=== PATIENT | female | born 1960 | race Caucasian/White ===

== ENCOUNTER → 2017-06-26 | Outpatient (CLI) | payer OTHER ==
[2017-06-26 07:19] LABS: ALT 30 U/L (9-52); AST 19 U/L (14-36); Alkaline Phosphatase 86 U/L (38-126); Anion Gap 10 mmol/L; Blood Urea Nitrogen 14 mg/dL (7-17); Calcium 9.3 mg/dL (8.4-10.2); Carbon Dioxide 26 mmol/L (22-30); Chloride 103 mmol/L (98-107); Cholesterol 211 mg/dL (<200); Glucose 155 mg/dL (74-99); HDL Cholesterol 44 mg/dL (40-60); Non-African American GFR(MDRD) >60 (>60 ml/min/1.73 sqM); Potassium 5.3 mmol/L (3.5-5.1); Sodium 139 mmol/L (137-145); Total Bilirubin 0.5 mg/dL (0.2-1.3); Total Protein 7.1 g/dL (6.3-8.2)
[2017-06-26 08:37] LABS: CH 31.7; HCT 50.1 % (34.0-46.0); HDW 2.42; HGB 16.5 gm/dL (11.4-16.0); MCH 31.8 pg (25.0-35.0); MCHC 32.9 g/dL (31.0-37.0); MCV 96.7 fL (80.0-100.0); Mean Platelet Volume 9.6; RBC 5.18 m/uL (3.80-5.40); RDW 14.2 % (11.5-15.5); WBC 7.4 k/uL (3.8-10.6)
[2017-06-26 13:01] LABS: Hemoglobin A1C 7.3 % (4.2-6.1)
--- NOTE | 2017-07-01 10:08 | MM ---
Reason for exam: screening (asymptomatic). Last mammogram was performed 13 years and 9 months ago. History: Patient is postmenopausal. Family history of breast cancer. Took estrogen for 16 years. Physical Findings: A clinical breast exam by your physician is recommended on an annual basis and results should be correlated with mammographic findings. MG Screening Mammo w CAD Bilateral CC, MLO, and XCCL view(s) were taken. No prior studies available for comparison. There are scattered fibroglandular densities. There is no discrete abnormality. No significant changes when compared with prior studies. ASSESSMENT: Negative, BI-RAD 1 RECOMMENDATION: Routine screening mammogram of both breasts in 1 year.
== END | disposition home or self-care (01) ==
LOC: RADMAMWWP 06:37
PROVIDERS: ATTEND Family Medicine
DX: Z12.31 Encounter for screening mammogram for malignant neoplasm of breast (principal); E11.9 Type 2 diabetes mellitus without complications; I10 Essential (primary) hypertension; E87.8 Other disorders of electrolyte and fluid balance, not elsewhere classified; D64.9 Anemia, unspecified
CPT/HCPCS: 80061; 80053; 84443; 83036; 85027; G0202

== ENCOUNTER 2022-10-11 12:07 | Inpatient (IN) | payer MEDICARE, OTHER ==
[2022-10-11] MEDS ORDERED: IPRATROPIUM-ALBUTEROL 3 ML NEB INHALATION STA (12:46)
[2022-10-11 13:18] LABS: Basophils # (A) 0.1 k/uL (0-0.2); Basophils % (A) 1 %; Eosinophils # (A) 0.1 k/uL (0-0.7); Eosinophils % (A) 1 %; HCT 47.7 % (34.0-46.0); HGB 16.2 gm/dL (11.4-16.0); Lymphocytes # (A) 2.1 k/uL (1.0-4.8); Lymphocytes % (A) 23 %; MCH 30.8 pg (25.0-35.0); MCHC 34.1 g/dL (31.0-37.0); MCV 90.3 fL (80.0-100.0); Mean Platelet Volume 10.3; Monocytes # (A) 0.8 k/uL (0-1.0); Monocytes % (A) 8 %; Neutrophils % (A) 65 %; Platelet Count 128 k/uL (150-450); RBC 5.28 m/uL (3.80-5.40); RDW 13.3 % (11.5-15.5); WBC 9.2 k/uL (3.8-10.6)
[2022-10-11 13:35] LABS: Partial Thromboplastin Time 23.1 sec (22.0-30.0); Prothrombin Time 10.5 sec (9.0-12.0)
[2022-10-11 13:36] LABS: ALT 27 U/L (4-34); AST 37 U/L (14-36); African American GFR (CKD) >90 (>60 ml/min/1.73 sqM); Albumin 4.6 g/dL (3.5-5.0); Alkaline Phosphatase 170 U/L (38-126); Anion Gap 8 mmol/L; Blood Urea Nitrogen 10 mg/dL (7-17); Calcium 9.3 mg/dL (8.4-10.2); Carbon Dioxide 27 mmol/L (22-30); Chloride 101 mmol/L (98-107); Glucose 167 mg/dL (74-99); Magnesium 1.9 mg/dL (1.6-2.3); Non-African American GFR(CKD) >90 (>60 ml/min/1.73 sqM); Potassium 4.1 mmol/L (3.5-5.1); Sodium 136 mmol/L (137-145); Total Bilirubin 0.7 mg/dL (0.2-1.3); Total Protein 7.5 g/dL (6.3-8.2)
--- NOTE | 2022-10-11 13:41 | XR ---
EXAMINATION TYPE: XR chest 2V DATE OF EXAM: 10/11/2022 1:29 PM COMPARISON: Chest radiographs from TECHNIQUE: XR chest 2V Frontal and lateral views of the chest. CLINICAL INDICATION:Female, 61 years old with history of difficulty breathing; FINDINGS: Lungs/Pleura: Right upper lobe airspace opacity along the right mediastinum. No Evidence of pleural e ffusion, or pneumothorax. Pulmonary vascularity: Unremarkable. Heart/mediastinum: Cardiomediastinal silhouette is unremarkable. Musculoskeletal: No acute osseous pathology. IMPRESSION: Right upper lobe airspace opacity correlate for pneumonia. Consider dedicated CT chest to rule out un derlying mass.
--- NOTE | 2022-10-11 14:07 | ED ---
SOB HPI - General Chief Complaint: Shortness of Breath Stated Complaint: Chest pain SOB Time Seen by Provider: 10/11/22 12:28 Source: patient, family, RN notes reviewed Mode of arrival: wheelchair Limitations: no limitations - History of Present Illness Initial Comments: 62-year-old female with history of IVs hypertension and CVA in the past who states she's been fighting a bronchitis-type illness for the past 6 weeks she's been on multiple antibiotics without relief. She does use an albuterol inhaler which sometimes works but lately hasn't been she has a cough with yellow greenish phlegm he complains of lower midsternal sharp chest discomfort mostly with taking deep breaths. She has no history of heart disease she states she is a smoker she states. She's never been diagnosed with asthma COPD or emphysema however. She is here for further evaluation. She also was noted have diffuse wheezing upon initial evaluation in triage. She denies any fevers chills or sweats at this time. MD Complaint: shortness of breath, cough, chest pain - Related Data Home Medications Medication Instructions Recorded Confirmed Albuterol Inhaler [Ventolin Hfa 2 puff INHALATION RT-Q6H PRN 10/11/22 10/11/22 Inhaler] Atorvastatin Calcium 40 mg PO HS 10/11/22 10/11/22 Metoprolol Tartrate [Lopressor] 25 mg PO DAILY 10/11/22 10/11/22 Allergies Allergy/AdvReac Type Severity Reaction Status Date / Time bupropion [From Wellbutrin] Allergy Confusion Verified 10/11/22 13:17 codeine Allergy Nausea & Verified 10/11/22 13:17 Vomiting Sulfa (Sulfonamide Allergy Nausea & Verified 10/11/22 13:17 Antibiotics) Vomiting & Diarrhea Review of Systems ROS Statement: Those systems with pertinent positive or pertinent negative responses have been documented in the HPI. ROS Other: All systems not noted in ROS Statement are negative. Past Medical History Past Medical History: CVA/TIA, Diabetes Mellitus, Hyperlipidemia, Hypertension History of Any Multi-Drug Resistant Organisms: None Reported Past Surgical History: Appendectomy, Section, Cholecystectomy, Hysterectomy Additional Past Surgical History / Comment(s): colon resection Past Psychological History: Depression Smoking Status: Current every day smoker Past Alcohol Use History: None Reported Past Drug Use History: None Reported General Exam - General Exam Comments Initial Comments: This is a well-developed well-nourished awake alert oriented 4 female Limitations: no limitations General appearance: alert, anxious Head exam: Present: atraumatic, normocephalic, normal inspection Eye exam: Present: normal appearance, PERRL, EOMI. Absent: scleral icterus, conjunctival injection, periorbital swelling ENT exam: Present: mucous membranes dry Neck exam: Present: normal inspection, full ROM, other Respiratory exam: Present: wheezes, chest wall tenderness, decreased breath sounds (No stridor JVD or bruits) Cardiovascular Exam: Present: regular rate, normal rhythm, normal heart sounds. Absent: systolic murmur, diastolic murmur, rubs, gallop, clicks GI/Abdominal exam: Present: soft, normal bowel sounds. Absent: distended, tenderness, guarding, rebound, rigid Extremities exam: Present: normal inspection, full ROM, normal capillary refill. Absent: tenderness, pedal edema, joint swelling, calf tenderness Back exam: Present: normal inspection Neurological exam: Present: alert, oriented X3, CN II-XII intact Psychiatric exam: Present: normal affect, normal mood Skin exam: Present: warm, dry, intact, normal color. Absent: rash Course Vital Signs 10/11/22 10/11/22 10/11/22 12:13 13:30 13:36 Temperature 98.3 F Pulse Rate 92 86 88 Respiratory 16 Rate Blood Pressure 127/80 O2 Sat by Pulse 97 Oximetry 10/11/22 14:00 Temperature Pulse Rate Respiratory 20 Rate Blood Pressure O2 Sat by Pulse Oximetry - Reevaluation(s) Reevaluation #1: 10/11/22 14:07 Reevaluation after the nebulizer treatment demonstrate persistent diminished breath sounds of right side wheezes. Pulse oximetry is 97% however. Procedures - [place] Protocol (Time Out) Nurse: Robyn Mcgee - Smoking Cessation Time Spent Discussing Smoking Cessation w/Patient (Minutes): 3 Patient Acknowledges Need for Cessation: Yes Medical Decision Making - Medical Decision Making I did discuss the findings with the patient family as well as with Dr. Lai. Patient will be admitted for inpatient evaluation and treatment of right upper lobe pneumonia elevated d-dimer failed outpatient treatment acute bronchospasm tobacco dependenceWas pt. sent in by a medical professional or institution (, PA, EMAIL PRODUCER, urgent care, hospital, or snf...) When possible be specific @ -No Did you speak to anyone other than the patient for history (EMS, parent, family, police, friend...)? What history was obtained from this source @ -No Did you review nursing and triage notes (agree or disagree)? Why? @ Yes I agree-I reviewed and agree with nursing and triage notes Were old charts reviewed (outside hosp., previous admission, EMS record, old EKG, old radiological studies, urgent care reports/EKG's, snf records)? Report findings @ -No old charts were reviewed Differential Diagnosis (chest pain, altered mental status, abdominal pain women, abdominal pain men, vaginal bleeding, weakness, fever, dyspnea, syncope, headache, dizziness, GI bleed, back pain, seizure, CVA, palpatations, mental he alth)? @ Chest pain, pneumonia, dyspnea which includes undiagnosed COPD exacerbation elevated d-dimer -not applicable EKG interpreted by me (3pts min.). @ Yes by me-As above X-rays interpreted by me (1pt min.). @ Yes by me-None done CT interpreted by me (1pt min.). @ -None done U/S interpreted by me (1pt. min.). @ -None done What testing was considered but not performed or refused? (CT, X-rays, U/S, labs)? Why? @ -None What meds were considered but not given or refused? Why? @ -None Did you discuss the management of the patient with other professionals (professionals i.e. , PA, EMAIL PRODUCER, lab, RT, psych nurse, social sciences instructor, flight surgeon, teacher, chief informatics officer, rehabilitation case coordinator)? Give summary @ With Dr. Lai -No Was smoking cessation discussed for >3mins.? @ Yes-No Was critical care preformed (if so, how long)? @ -No Were there social determinants of health that impacted care today? How? (Homelessness, low income, unemployed, alcoholism, drug addiction, transportation, low edu. Level, literacy, decrease access to med. care, mcc, rehab)? @ -No Was there de-escalation of care discussed even if they declined (Discuss DNR or withdrawal of care, Hospice)? DNR status @ -No What co-morbidities impacted this encounter? (DM, HTN, Smoking, COPD, CAD, Cancer, CVA, ARF, Chemo, Hep., AIDS, mental health diagnosis, sleep apnea, morbid obesity)? @ -None Was patient admitted / discharged? Hospital course, mention meds given and route, prescriptions, significant lab abnormalities, going to OR and other perti nesharif info. @ -hospital course Undiagnosed new problem with uncertain prognosis? @ -No Drug Therapy requiring intensive monitoring for toxicity (Heparin, Nitro, Insulin, Cardizem)? @ -No Were any procedures done? @ -No Diagnosis/symptom? @ Right upper lobe pneumonia, acute bronchospasm, tobacco dependence, chest pain, elevated [id number] Acute, or Chronic, or Acute on Chronic? @ Acute -default Uncomplicated (without systemic symptoms) or Complicated (systemic symptoms)? @ -default Side effects of treatment? @ -No Exacerbation, Progression, or Severe Exacerbation? @ Failed outpatient treatment- Poses a threat to life or bodily function? How? (Chest pain, [place], [place], pneumonia, PE, COPD, DKA, ARF, appy, cholecystitis, CVA, Diverticulitis, Homicidal, Suicidal, threat to staff... and all critical care pts) @ If left untreated- - Lab Data Result diagrams: 10/11/22 13:04 10/11/22 13:04 Lab Results 10/11/22 10/11/22 10/11/22 Range/Units 13:04 13:04 13:04 WBC 9.2 (3.8-10.6) k/uL RBC 5.28 (3.80-5.40) m/uL Hgb 16.2 H (11.4-16.0) gm/dL Hct 47.7 H (34.0-46.0) % MCV 90.3 (80.0-100.0) fL MCH 30.8 (25.0-35.0) pg MCHC 34.1 (31.0-37.0) g/dL RDW 13.3 (11.5-15.5) % Plt Count 128 L (150-450) k/uL MPV 10.3 Neutrophils % 65 % Lymphocytes % 23 % Monocytes % 8 % Eosinophils % 1 % Basophils % 1 % Neutrophils # 6.0 (1.3-7.7) k/uL Lymphocytes # 2.1 (1.0-4.8) k/uL Monocytes # 0.8 (0-1.0) k/uL Eosinophils # 0.1 (0-0.7) k/uL Basophils # 0.1 (0-0.2) k/uL PT 10.5 (9.0-12.0) sec INR 1.0 (<1.2) APTT 23.1 (22.0-30.0) sec D-Dimer 1.56 H (<0.60) mg/L FEU Sodium 136 L (137-145) mmol/L Potassium 4.1 (3.5-5.1) mmol/L Chloride 101 (98-107) mmol/L Carbon Dioxide 27 (22-30) mmol/L Anion Gap 8 mmol/L BUN 10 (7-17) mg/dL Creatinine 0.43 L (0.52-1.04) mg/dL Est GFR (CKD-EPI)AfAm >90 (>60 ml/min/1.73 sqM) Est GFR (CKD-EPI)NonAf >90 (>60 ml/min/1.73 sqM) Glucose 167 H (74-99) mg/dL Plasma Lactic Acid Bala (0.7-2.0) mmol/L Calcium 9.3 (8.4-10.2) mg/dL Magnesium 1.9 (1.6-2.3) mg/dL Total Bilirubin 0.7 (0.2-1.3) mg/dL AST 37 H (14-36) U/L ALT 27 (4-34) U/L Alkaline Phosphatase 170 H (38-126) U/L Troponin I (0.000-0.034) ng/mL Total Protein 7.5 (6.3-8.2) g/dL Albumin 4.6 (3.5-5.0) g/dL Influenza Type A (PCR) (Not Detectd) Influenza Type B (PCR) (Not Detectd) RSV (PCR) (Not Detectd) SARS-CoV-2 (PCR) (Not Detectd) 10/11/22 10/11/22 10/11/22 Range/Units 13:04 13:04 13:04 WBC (3.8-10.6) k/uL RBC (3.80-5.40) m/uL Hgb (11.4-16.0) gm/dL Hct (34.0-46.0) % MCV (80.0-100.0) fL MCH (25.0-35.0) pg MCHC (31.0-37.0) g/dL RDW (11.5-15.5) % Plt Count (150-450) k/uL MPV Neutrophils % % Lymphocytes % % Monocytes % % Eosinophils % % Basophils % % Neutrophils # (1.3-7.7) k/uL Lymphocytes # (1.0-4.8) k/uL Monocytes # (0-1.0) k/uL Eosinophils # (0-0.7) k/uL Basophils # (0-0.2) k/uL PT (9.0-12.0) sec INR (<1.2) APTT (22.0-30.0) sec D-Dimer (<0.60) mg/L FEU Sodium (137-145) mmol/L Potassium (3.5-5.1) mmol/L Chloride (98-107) mmol/L Carbon Dioxide (22-30) mmol/L Anion Gap mmol/L BUN (7-17) mg/dL Creatinine (0.52-1.04) mg/dL Est GFR (CKD-EPI)AfAm (>60 ml/min/1.73 sqM) Est GFR (CKD-EPI)NonAf (>60 ml/min/1.73 sqM) Glucose (74-99) mg/dL Plasma Lactic Acid Bala 1.1 (0.7-2.0) mmol/L Calcium (8.4-10.2) mg/dL Magnesium (1.6-2.3) mg/dL Total Bilirubin (0.2-1.3) mg/dL AST (14-36) U/L ALT (4-34) U/L Alkaline Phosphatase (38-126) U/L Troponin I <0.012 (0.000-0.034) ng/mL Total Protein (6.3-8.2) g/dL Albumin (3.5-5.0) g/dL Influenza Type A (PCR) Not Detected (Not Detectd) Influenza Type B (PCR) Not Detected (Not Detectd) RSV (PCR) Not Detected (Not Detectd) SARS-CoV-2 (PCR) Not Detected (Not Detectd) - EKG Data -: EKG Interpreted by Ar EKG Comments: EKG interpreted by me shows a sinus rhythm of 98 VA interval 138 QRS duration 94 QT since QTC 338/394 left atrial enlargement nonspecific T-wave configuration - Radiology Data Interpreted by me: Imaging interpreted by me shows evidence of a right upper lobe infiltrate Disposition Clinical Impression: Right upper lobe pneumonia, Failure of outpatient treatment, Acute bronchospasm, Elevated d-dimer, Atypical chest pain, Tobacco dependence Disposition: ADMITTED IP TO THIS [facility] Condition: Fair Referrals: None,Stated [Primary Care Provider] - 1-2 days Decision Date: 10/11/22 Decision Time: 14:00
[2022-10-11] MEDS ORDERED: PIPERACILLIN-TAZOBACTAM 3.375 GM in SODIUM CHLORIDE 0.9% 100 ML IVPB STA (14:14)
[2022-10-11] MEDS ORDERED: methylPREDNISolone SOD SUCCI 125 MG/2 ML VIAL IV STA (14:24)
[2022-10-11] MEDS ORDERED: MAGNESIUM SULFATE-D5W PMX 1 GM in DEXTROSE/WATER 1 100ML.BAG IVPB ONE (14:24)
[2022-10-11] MEDS ORDERED: LEVOFLOXACIN 500MG-D5W PMX 500 MG in DEXTROSE/WATER 1 100ML.BAG IVPB STA (14:24)
[2022-10-11] MEDS ORDERED: PNEUMONIA PROTOCOL UTILIZED 1 EACH MISC PO PRN (14:25)
[2022-10-11] MEDS ORDERED: IPRATROPIUM-ALBUTEROL 3 ML NEB INHALATION PRN (14:25)
[2022-10-11] MEDS ORDERED: NICOTINE 21MG/24HR PATCH TRANSDERM STA (14:28)
[2022-10-11] MEDS ORDERED: SODIUM CHLORIDE 0.9% 1,000 ML IV SCH (14:30)
--- NOTE | 2022-10-11 14:49 | CT ---
EXAMINATION TYPE: CT angio chest CT DLP: 388.8 mGycm, Automated exposure control for dose reduction was used. DATE OF EXAM: 10/11/2022 2:29 PM COMPARISON: None CLINICAL INDICATION:Female, 61 years old with history of PE suspected; chest pain, sob, hx of hyperte nsion TECHNIQUE/CONTRAST: CTA scan of the thorax is performed with IV Contrast, patient injected with 100 ml mL of Isovue 370, pulmonary embolism protocol. MIP images are created and reviewed these are created on a separate wor kstation.. FINDINGS: Pulmonary Artery: There is no evidence for a filling defect within the pulmonary vasculature to sugge st acute pulmonary embolism. The pulmonary artery is of normal size. Lungs/Pleura: Right upper lobe consolidation likely postobstructive consolidation with superimposed i nfection not entirely excluded. Consolidation secondary to narrowing of the airway from right pulmona ry hilum mass. Airway: Right perihilar mass which narrows the right bronchus at least 75% in the right upper lobe lo bar bronchus 100% series 411 image 53 results in obstructive consolidation of the right upper lobe. Heart: Heart is within normal limits for size. Vasculature: No evidence of aortic aneurysm. Mediastinum: Lymphadenopathy throughout the mediastinum including right superior paratracheal measuri ng up to 12 mm in short axis, right low paratracheal measuring up to 20 mm in short axis. Subcarinal lymphadenopathy measuring up to 3.8 x 2.1 cm. Right hilum lymph nodes Musculoskeletal: There is a subacute fracture of left rib 7 posteriorly laterally. Soft Tissues: Unremarkable. Lower neck: No significant findings. Upper Abdomen: Right adrenal gland is partially not definitively visualized there is ae mass which is cystic attenuation measuring 6.6 x 5.8 x 6.9 cm it appears separate from the right kidney. There is multiple hypodensities within the liver the largest in the right lobe measuring up to 3.0 cm and in t he left hepatic lobe measuring 1.4 cm. The gallbladder surgically absent. There is a splenule. IMPRESSION: 1. Right pulmonary hilum/right upper lobe mass with mediastinal lymphadenopathy concerning for prima ry malignancy with metastatic disease. Mass narrows the airways on the right which correlates with co nsolidation changes seen on radiograph. Superimposed infection not entirely excluded. Endoscopy with tissue simply recommended. 2. Right adrenal fossa cystic lesion which is indeterminate and felt to be separate from the right k idney. Could be secondary to #1. 3. Numerous liver hypodensities concerning for metastatic disease. Could be secondary to #1. Complet e evaluation of the abdomen and pelvis is recommended given multiple liver probable metastatic foci. 4. No evidence of pulmonary embolism. 5. Subacute left posterior rib 7 fracture
[2022-10-11] MEDS ORDERED: DEXTROSE 50% SYRINGE 50 ML IVP PRN ×2 (15:46)
[2022-10-11] MEDS ORDERED: NALOXONE 0.4 MG/ML 1 ML VIAL IV PRN (15:48)
[2022-10-11] MEDS ORDERED: ACETAMINOPHEN TAB 325 MG TAB PO PRN (15:48)
--- NOTE | 2022-10-11 15:48 | P.HPIM ---
History of Present Illness H&P Date: 10/11/22 Chief Complaint: SOB and cough Patient is a 61-year-old female with history of hypertension, dyslipidemia, and nicotine dependence presenting with shortness of breath and cough. She claims that her symptoms started about 6 weeks ago. She occasionally gets acute bronchitis every year. This time around, she had 3 rounds of antibiotics with no resolution. She did not have any imaging done as an outpatient. She has not had any CTs done in the last few years. Due to worsening cough, shortness of breath she decided to come to the hospital. She denies any significant fevers, chills, nausea, vomiting, abdominal pain, palpitations, diarrhea, constipation, travel history, or sick contacts. She occasionally gets sternal chest pain from coughing too much. She denies any weight loss. In the ED, vital signs have been within normal limits. Patient saturating well on room air. Labs showed normal white blood cell count, elevated hemoglobin, mild thrombocytopenia, mild hyponatremia 136, mild transaminitis, elevated d- dimer at 1.56. Influenza a and B, RSV, and COVID-19 was negative. Chest x-ray reported as right upper lobe opacity concerning for pneumonia. EKG showed normal sinus rhythm with nonspecific ST-T wave abnormalities reviewed by me. CTA showed right pulmonary hilum/right upper lobe mass with mediastinal lymphadenopathy concerning for primary malignancy with metastatic disease. Right adrenal possible cystic lesion, numerous liver hypodensities also concerning for metastatic disease. Subacute left posterior rib fracture. Patient seen and examined at bedside. Pertinent positives and negatives as discussed in HPI, a complete review of systems was performed and all other systems are negative. Vital signs reviewed General: nontoxic, no distress, appears at stated age Derm: warm, dry Head: atraumatic, normocephalic, symmetric Eyes: EOMI, no lid lag, anicteric sclera, pupils equal round reactive to light ENT: Nose and ears atraumatic Neck: No thyromegaly, supple Mouth: no lip lesion, mucus membranes moist Cardiovascular: S1S2 reg, no murmur, no edema Lungs: Right upper lobe reduced breath sounds, no wheeze, no accessory muscle use Abdominal: soft, nontender to palpation, no guarding, no appreciable organomegaly Ext: no gross muscle atrophy, muscle strength muscle strength 5 out of 5 in all 4 extremities, no contractures Neuro: CN II-XII grossly intact Psych: Alert, oriented, appropriate affect Assessment/Plan: Primary lung malignancy with metastatic disease Possible postobstructive pneumonia Subacute left posterior fracture right adrenal mass Liver metastasis Acute on chronic dyspnea Elevated d-dimer Mild transaminitis Mild thrombocytopenia -procalcitonin pending -Sputum cultures, blood cultures -hold off antibiotics for now -symptoms likely all secondary to malignancy -Pulmonology, and oncology consulted Nicotine dependence -Counseled regarding smoking cessation Type 2 diabetes mellitus - hold home meds - SSI History of hypertension History of dyslipidemia -Continue home medications The patient is admitted with an anticipated greater than 2 midnight stay for evaluation of pneumonia. Surrogate decision-maker: spouse CODE STATUS: Full code DVT prophylaxis: Lovenox Anticipated discharge date: 1-[address]: Home A total of 59 minutes was spent on the care of this complex patient more than 50% of the time was spent in counseling and care coordination. Past Medical History Past Medical History: CVA/TIA, Diabetes Mellitus, Hyperlipidemia, Hypertension History of Any Multi-Drug Resistant Organisms: None Reported Past Surgical History: Appendectomy, Section, Cholecystectomy, Hysterectomy Additional Past Surgical History / Comment(s): colon resection Past Psychological History: Depression Smoking Status: Current every day smoker Past Alcohol Use History: None Reported Past Drug Use History: None Reported Medications and Allergies Home Medications Medication Instructions Recorded Confirmed Type Albuterol Inhaler [Ventolin Hfa 2 puff INHALATION RT-Q6H PRN 10/11/22 10/11/22 History Inhaler] Atorvastatin Calcium 40 mg PO HS 10/11/22 10/11/22 History Empagliflozin [Jardiance] 10 mg PO DAILY 10/11/22 10/11/22 History Metoprolol Tartrate [Lopressor] 25 mg PO DAILY 10/11/22 10/11/22 History Semaglutide [Ozempic] 0.5 mg SQ MO 10/11/22 10/11/22 History Sertraline [Zoloft] 100 mg PO BID 10/11/22 10/11/22 History Allergies Allergy/AdvReac Type Severity Reaction Status Date / Time bupropion [From Wellbutrin] Allergy Confusion Verified 10/11/22 13:17 codeine Allergy Nausea & Verified 10/11/22 13:17 Vomiting Sulfa (Sulfonamide Allergy Nausea & Verified 10/11/22 13:17 Antibiotics) Vomiting & Diarrhea Physical Exam Vitals: Vital Signs Temp Pulse Resp BP Pulse Ox 10/11/22 14:30 90 16 134/90 94 L 10/11/22 14:00 20 10/11/22 13:36 88 10/11/22 13:30 86 10/11/22 12:13 98.3 F 92 16 127/80 97 Intake and Output 10/11/22 10/11/22 10/11/22 06:59 14:59 22:59 Other: Weight 83.915 kg Results CBC & Chem 7: 10/11/22 13:04 10/11/22 13:04 Labs: Abnormal Lab Results - Last 24 Hours (Table) 10/11/22 10/11/22 10/11/22 Range/Units 13:04 13:04 13:04 Hgb 16.2 H (11.4-16.0) gm/dL Hct 47.7 H (34.0-46.0) % Plt Count 128 L (150-450) k/uL D-Dimer 1.56 H (<0.60) mg/L FEU Sodium 136 L (137-145) mmol/L Creatinine 0.43 L (0.52-1.04) mg/dL Glucose 167 H (74-99) mg/dL AST 37 H (14-36) U/L Alkaline Phosphatase 170 H (38-126) U/L
[2022-10-11 16:39] LABS: Glucose,Whole Blood 226 mg/dL (70-110)
[2022-10-11] MEDS: INSULIN ASPART (NovoLOG) 100 UNIT/ML VIAL SQ SCH ×2 (17:40→20:52)
[2022-10-11] MEDS ORDERED: FLUCONAZOLE 150 MG TAB PO STA (18:02)
[2022-10-11] MEDS: ALPRAZolam 0.5 MG TAB PO PRN (18:34)
[2022-10-11 19:50] LABS: Glucose,Whole Blood 251 mg/dL (70-110)
[2022-10-11] MEDS: SERTRALINE 100 MG TAB PO SCH (20:52)
[2022-10-11] MEDS: ATORVASTATIN 40 MG TAB PO SCH (20:52)
[2022-10-12] MEDS ORDERED: PIPERACILLIN-TAZOBACTAM 3.375 GM in SODIUM CHLORIDE 0.9% 100 ML IVPB SCH ×2
[2022-10-12] MEDS: oxyCODONE-APAP 5-325MG 1 EACH TAB PO PRN ×2 (04:16→20:58)
[2022-10-12 06:22] LABS: Glucose,Whole Blood 194 mg/dL (70-110)
[2022-10-12] MEDS: INSULIN ASPART (NovoLOG) 100 UNIT/ML VIAL SQ SCH ×4 (06:27→20:59)
[2022-10-12 08:14] LABS: Basophils % (A) 0 %; Eosinophils # (A) 0.1 k/uL (0-0.7); Eosinophils % (A) 0 %; HGB 15.6 gm/dL (11.4-16.0); Lymphocytes # (A) 1.1 k/uL (1.0-4.8); Lymphocytes % (A) 8 %; MCH 30.3 pg (25.0-35.0); MCHC 33.2 g/dL (31.0-37.0); MCV 91.5 fL (80.0-100.0); Mean Platelet Volume 10.6; Monocytes # (A) 0.8 k/uL (0-1.0); Monocytes % (A) 5 %; Neutrophils # (A) 12.6 k/uL (1.3-7.7); Neutrophils % (A) 86 %; Platelet Count 137 k/uL (150-450); RBC 5.14 m/uL (3.80-5.40); RDW 13.2 % (11.5-15.5); WBC 14.8 k/uL (3.8-10.6)
--- NOTE | 2022-10-12 08:24 | XR ---
EXAMINATION TYPE: XR chest 2V DATE OF EXAM: 10/12/2022 COMPARISON: 10/11/2022 HISTORY: 61-year-old female pneumonia follow-up TECHNIQUE: PA and lateral views FINDINGS: Heart normal size. Aorta and pulmonary vasculature within normal limits. Focal opacity periphery of t he left midlung is unchanged, likely corresponding to a tiny calcified granuloma on CT. Volume loss a nd airspace disease right upper lobe extending to the right hilum remains unchanged as well. Hyperinf lation compatible with underlying COPD. No pleural effusion. IMPRESSION: Similar developing Reverse S sign of [place] with postobstructive pneumonitis. Background COPD.
[2022-10-12] MEDS ORDERED: ENOXAPARIN 40 MG/0.4 ML SYRINGE SQ SCH (09:00)
[2022-10-12] MEDS: SERTRALINE 100 MG TAB PO SCH ×2 (09:50→20:59)
[2022-10-12] MEDS: METOPROLOL TARTRATE 25 MG TAB PO SCH (09:50)
[2022-10-12] MEDS ORDERED: SUCCINYLCHOLINE CHLORIDE 200 MG/10 ML VIAL IV ONE (10:16)
[2022-10-12] MEDS ORDERED: LIDOCAINE 2% INJ 20 MG/ML (2 ML VIAL) ONE (10:16)
[2022-10-12] MEDS ORDERED: fentaNYL (PF) 50 MCG/ML 2 ML AMP ONE (10:16)
[2022-10-12] MEDS ORDERED: PROPOFOL 10 MG/ML 20 ML VIAL IV ONE (10:16)
[2022-10-12] MEDS ORDERED: DEXAMETHASONE SOD PHOS (MDV) 100 MG/10 ML VIAL ONE (10:16)
[2022-10-12] MEDS ORDERED: ONDANSETRON 4 MG/2 ML VIAL ONE (10:16)
[2022-10-12 11:29] LABS: Glucose,Whole Blood 240 mg/dL (70-110)
[2022-10-12] MEDS ORDERED: IPRATROPIUM-ALBUTEROL 3 ML NEB INHALATION PRN (11:43)
[2022-10-12] MEDS: methylPREDNISolone SOD SUCCI 125 MG/2 ML VIAL IV SCH ×3 (12:08→23:47)
--- NOTE | 2022-10-12 12:09 | P.PN ---
Subjective Progress Note Date: 10/12/22 Hospital Course: 61-year-old female with history of hypertension, dyslipidemia, and nicotine dependence presenting with shortness of breath and cough. In the ED, vital signs have been within normal limits. Patient saturating well on room air. Labs showed normal white blood cell count, elevated hemoglobin, mild thrombocytopenia, mild hyponatremia 136, mild transaminitis, elevated d-dimer at 1.56. Influenza a and B, RSV, and COVID-19 was negative. Chest x-ray reported as right upper lobe opacity concerning for pneumonia. EKG showed normal sinus rhythm with nonspecific ST-T wave abnormalities reviewed by me. CTA showed right pulmonary hilum/right upper lobe mass with mediastinal lymphadenopathy concerning for primary malignancy with metastatic disease. Right adrenal possib le cystic lesion, numerous liver hypodensities also concerning for metastatic disease. Subacute left posterior rib fracture. Patient admitted for further malignancy workup. Pulmonology and oncology consulted. Subjective: Patient seen and examined at bedside. No acute events overnight. Patient claims that her breathing and cough has slightly improved. Her chest pain only comes on with extensive coughing. She denies any abdominal pain, nausea, vomiting, diarrhea, constipation, or urinary complaints. Pertinent positives and negatives as discussed above, a complete review of systems was performed and all other systems are negative. Vitals Signs Reviewed. General: nontoxic, no distress, appears at stated age Derm: warm, dry Head: atraumatic, normocephalic, symmetric Eyes: EOMI, no lid lag, anicteric sclera Mouth: no lip lesion, mucus membranes moist Cardiovascular: S1S2 reg, no murmur Lungs: Reduced breath sounds in right upper lobe, supplemental oxygen Abdominal: soft, nontender to palpation, no guarding, no appreciable organomegaly Ext: no gross muscle atrophy, no edema, no contractures Neuro: CN II-XI grossly intact, no focal neuro deficits Psych: Alert, oriented, appropriate affect Assessment and Plan: Primary lung malignancy with metastatic disease Possible postobstructive pneumonia Possible COPD exacerbation Subacute left posterior fracture right adrenal mass Liver metastasis Acute on chronic dyspnea Elevated d-dimer Mild transaminitis Mild thrombocytopenia -procalcitonin elevated -Sputum cultures, blood cultures -Antibiotics, steroids, bronchodilators -Pulmonology, and oncology consulted Nicotine dependence -Counseled regarding smoking cessation Type 2 diabetes mellitus - hold home meds - SSI History of hypertension History of dyslipidemia -Continue home medications DVT ppx: Lovenox Code status: DNR/DNI Anticipated discharge place: Home Anticipated discharge time: pending clinical course Objective - Vital Signs Vital signs: Vital Signs Temp 98.6 F 10/12/22 08:00 Pulse 83 10/12/22 08:00 Resp 18 10/12/22 08:00 BP 129/73 10/12/22 08:00 Pulse Ox 95 10/12/22 08:25 FiO2 21 10/11/22 19:42 Intake & Output 10/11/22 10/12/22 10/12/22 18:59 06:59 18:59 Intake Total 118 Output Total 200 Balance -200 118 Weight 83.915 kg Intake: Oral 118 Output: Urine 200 Other: Voiding Method Toilet # Voids 2 - Labs CBC & Chem 7: 10/12/22 08:02 10/11/22 13:04 Labs: Abnormal Lab Results - Last 24 Hours (Table) 10/11/22 10/11/22 10/11/22 Range/Units 13:04 13:04 13:04 WBC (3.8-10.6) k/uL Hgb 16.2 H (11.4-16.0) gm/dL Hct 47.7 H (34.0-46.0) % Plt Count 128 L (150-450) k/uL Neutrophils # (1.3-7.7) k/uL D-Dimer 1.56 H (<0.60) mg/L FEU Sodium 136 L (137-145) mmol/L Creatinine 0.43 L (0.52-1.04) mg/dL Glucose 167 H (74-99) mg/dL POC Glucose (mg/dL) (70-110) mg/dL Hemoglobin A1c (0.0-6.0) % AST 37 H (14-36) U/L Alkaline Phosphatase 170 H (38-126) U/L Procalcitonin (0.02-0.09) ng/mL 10/11/22 10/11/22 10/11/22 Range/Units 13:04 13:04 16:37 WBC (3.8-10.6) k/uL Hgb (11.4-16.0) gm/dL Hct (34.0-46.0) % Plt Count (150-450) k/uL Neutrophils # (1.3-7.7) k/uL D-Dimer (<0.60) mg/L FEU Sodium (137-145) mmol/L Creatinine (0.52-1.04) mg/dL Glucose (74-99) mg/dL POC Glucose (mg/dL) 226 H (70-110) mg/dL Hemoglobin A1c 8.2 H (0.0-6.0) % AST (14-36) U/L Alkaline Phosphatase (38-126) U/L Procalcitonin 0.17 H (0.02-0.09) ng/mL 10/11/22 10/12/22 10/12/22 Range/Units 19:49 06:21 08:02 WBC 14.8 H (3.8-10.6) k/uL Hgb (11.4-16.0) gm/dL Hct 47.0 H (34.0-46.0) % Plt Count 137 L (150-450) k/uL Neutrophils # 12.6 H (1.3-7.7) k/uL D-Dimer (<0.60) mg/L FEU Sodium (137-145) mmol/L Creatinine (0.52-1.04) mg/dL Glucose (74-99) mg/dL POC Glucose (mg/dL) 251 H 194 H (70-110) mg/dL Hemoglobin A1c (0.0-6.0) % AST (14-36) U/L Alkaline Phosphatase (38-126) U/L Procalcitonin (0.02-0.09) ng/mL 10/12/22 Range/Units 11:28 WBC (3.8-10.6) k/uL Hgb (11.4-16.0) gm/dL Hct (34.0-46.0) % Plt Count (150-450) k/uL Neutrophils # (1.3-7.7) k/uL D-Dimer (<0.60) mg/L FEU Sodium (137-145) mmol/L Creatinine (0.52-1.04) mg/dL Glucose (74-99) mg/dL POC Glucose (mg/dL) 240 H (70-110) mg/dL Hemoglobin A1c (0.0-6.0) % AST (14-36) U/L Alkaline Phosphatase (38-126) U/L Procalcitonin (0.02-0.09) ng/mL
--- NOTE | 2022-10-12 13:56 | P.CNPUL ---
History of Present Illness Consult date: 10/12/22 Requesting physician: Ashwin Lai Reason for consult: dyspnea, cough, chest pain, COPD, hypoxemia, pneumonia, lung mass, abnormal CXR/CT Chief complaint: Shortness of breath, chest pain. History of present illness: Pulmonary consult dated 10/12/2022. 61-year-old female who was seen in the emergency department on October 11. She came with complaints of shortness of breath, and chest pain. She apparently has a history of hypertension, and COPD from years of tobacco use. She's been smo jay for more than 40 years. The patient has been on multiple rounds of antibiotics for "bronchitis". The patient does not currently see a lung doctor. She does not have a family doctor in this area she just recently moved back to this area. Anyway, in the emergency department, she was evaluated with a chest x-ray and a computed tomography scan which suggested infiltrate or mass in the right upper lobe. The computed tomography scan suggest a right perihilar mass, with obstruction of the right mainstem bronchus, and a postobstructive pneumonia. In addition, the patient has lesions in the liver suggestive of metastatic disease. We suspect that she has bronchogenic cancer, with metastasi s. We were sirena enough to secure a spot in the operating room tomorrow for bronchoscopy, and biopsy. Lab data includes a white count of 14.8, hemoglobin 15.6, hematocrit 47, and platelet count of 237,000. D-dimer was 1.56. Sodium 136, potassium 4.1, chloride 101, CO2 27, BUN 10, and creatinine 0.43. The AST was 37. Pro-calcitonin level was 0.17. Testing for influenza, RSV, and coronavirus were negative. Chest x-ray showed right upper lobe airspace disease. CTA was negative for pulmonary embolism. There is a right pulmonary mass, with mediastinal adenopathy, concerning for primary malignancy with metastatic disease to the liver. There are numerous liver hypodensities concerning for metastatic disease. Review of Systems REVIEW OF SYSTEMS: CONSTITUTIONAL: [Negative.] NEUROLOGIC: [ Negative.] HEENT: [ Negative.] CARDIAC: Chest pressure/pain. PULMONARY: Shortness of breath, cough, chest congestion, tightness, with some phlegm production. GI: [Negative.] : [Negative.] RHEUMATOLOGIC: [ Negative.] IMMUNOLOGIC: [ Negative.] ENDOCRINE: [Negative. ] DERMATOLOGIC: [Negative.] Past Medical History Past Medical History: CVA/TIA, Diabetes Mellitus, Hyperlipidemia, Hypertension History of Any Multi-Drug Resistant Organisms: None Reported Past Surgical History: Appendectomy, Section, Cholecystectomy, Hysterectomy Additional Past Surgical History / Comment(s): colon resection Past Anesthesia/Blood Transfusion Reactions: No Reported Reaction Past Psychological History: Depression Smoking Status: Current every day smoker Past Alcohol Use History: None Reported Past Drug Use History: None Reported Medications and Allergies Home Medications Medication Instructions Recorded Confirmed Type Albuterol Inhaler [Ventolin Hfa 2 puff INHALATION RT-Q6H PRN 10/11/22 10/11/22 History Inhaler] Atorvastatin Calcium 40 mg PO HS 10/11/22 10/11/22 History Empagliflozin [Jardiance] 10 mg PO DAILY 10/11/22 10/11/22 History Metoprolol Tartrate [Lopressor] 25 mg PO DAILY 10/11/22 10/11/22 History Semaglutide [Ozempic] 0.5 mg SQ MO 10/11/22 10/11/22 History Sertraline [Zoloft] 100 mg PO BID 10/11/22 10/11/22 History Allergies Allergy/AdvReac Type Severity Reaction Status Date / Time bupropion [From Wellbutrin] Allergy Confusion Verified 10/11/22 13:17 codeine Allergy Nausea & Verified 10/11/22 13:17 Vomiting Sulfa (Sulfonamide Allergy Nausea & Verified 10/11/22 13:17 Antibiotics) Vomiting & Diarrhea Physical Exam Osteopathic Statement: *. No significant issues noted on an osteopathic structural exam other than those noted in the History and Physical/Consult. Vitals: Vital Signs Temp Pulse Pulse Resp BP BP Pulse Ox 10/12/22 12:00 98.5 F 94 19 148/74 92 L 10/12/22 08:25 95 10/12/22 08:00 98.6 F 83 18 129/73 95 10/12/22 04:00 98.3 F 83 18 157/85 97 10/12/22 02:00 18 10/11/22 23:25 97.9 F 83 18 104/66 96 10/11/22 20:00 98.2 F 87 18 157/79 93 L 10/11/22 19:42 93 L 10/11/22 18:09 98 F 88 18 139/62 91 L 10/11/22 16:41 92 18 126/79 98 10/11/22 14:30 90 16 134/90 94 L 10/11/22 14:00 20 FiO2 10/12/22 12:00 10/12/22 08:25 10/12/22 08:00 10/12/22 04:00 10/12/22 02:00 10/11/22 23:25 10/11/22 20:00 10/11/22 19:42 21 10/11/22 18:09 10/11/22 16:41 10/11/22 14:30 10/11/22 14:00 Intake and Output 10/11/22 10/12/22 10/12/22 22:59 06:59 14:59 Intake Total 236 Output Total 200 Balance -200 236 Intake: Oral 236 Output: Urine 200 Other: Voiding Method Toilet Toilet # Voids 2 Weight 83.915 kg No acute distress, oriented 3. Currently on 2 L. No conversational dyspnea. Very bronchospastic cough. HEENT examination is grossly unremarkable. Neck supple. Full range of motion. No adenopathy thyromegaly or neck vein distention. Cardiovascular examination reveals regular rhythm rate. S1-S2 normal. No S3 or S4. No discernible murmur noted. Heart sounds are distant. Heart rate 94 bpm. Lungs reveal significant bronchial breath sounds on the right, with expiratory rhonchi and wheezes. Left breath sounds are also abnormal, but not near as bad as on the right side. No crackles. 2 L saturation 95%. Abdomen soft bowel sounds are heard. No masses or tenderness. Extremities are intact. No cyanosis clubbing or edema. Skin is without rash or lesion. Neurologic examination is brief but nonfocal. Results - Laboratory Findings CBC and BMP: 10/12/22 08:02 10/11/22 13:04 PT/INR, D-dimer PT 10.5 sec (9.0-12.0) 10/11/22 13:04 INR 1.0 (<1.2) 10/11/22 13:04 D-Dimer 1.56 mg/L FEU (<0.60) H 10/11/22 13:04 Abnormal lab findings: Abnormal Labs 10/11/22 10/11/2210/11/23 13:04 13:04 13:04 WBC Hgb 16.2 H Hct 47.7 H Plt Count 128 L Neutrophils # D-Dimer 1.56 H Sodium 136 L Creatinine 0.43 L Glucose 167 H POC Glucose (mg/dL) Hemoglobin A1c AST 37 H Alkaline Phosphatase 170 H Procalcitonin 10/11/22 10/11/22 10/11/22 13:04 13:04 16:37 WBC Hgb Hct Plt Count Neutrophils # D-Dimer Sodium Creatinine Glucose POC Glucose (mg/dL) 226 H Hemoglobin A1c 8.2 H AST Alkaline Phosphatase Procalcitonin 0.17 H 10/11/22 10/12/22 10/12/22 19:49 06:21 08:02 WBC 14.8 H Hgb Hct 47.0 H Plt Count 137 L Neutrophils # 12.6 H D-Dimer Sodium Creatinine Glucose POC Glucose (mg/dL) 251 H 194 H Hemoglobin A1c AST Alkaline Phosphatase Procalcitonin 10/12/22 11:28 WBC Hgb Hct Plt Count Neutrophils # D-Dimer Sodium Creatinine Glucose POC Glucose (mg/dL) 240 H Hemoglobin A1c AST Alkaline Phosphatase Procalcitonin - Diagnostic Findings Chest x-ray: image reviewed CT scan - chest: image reviewed Assessment and Plan Assessment: Acute COPD exacerbation, complicated by right hilar mass, and postobstructive pneumonia. 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 Ongoing tobacco use with nicotine addiction. History of diabetes mellitus. History of CVA. History of hypertension. History of hyperlipidemia. History of depression. Multiple previous surgeries including colon resection, appendectomy, section, cholecystectomy, and hysterectomy. Plan: Plan dated 10/12/2022. We were able to secure a spot in the operating room tomorrow, for bronchoscopy, and tissue diagnosis. Based on her computed tomography scan, it appears that we will run into an abnormal area in the right mainstem bronchus, on endoscopic evaluation. In the meantime, the patient's placed on Pulmicort, formoterol, DuoNeb updrafts, Zosyn, and Solu-Medrol. Additional recommendations and suggestions are forthcoming. We asked the nurse to make the patient nothing by mouth after midnight, and get a consent on the chart. Time with Patient: Greater than 30
[2022-10-12] MEDS ORDERED: LEVOFLOXACIN 750 MG TAB PO SCH (15:00)
[2022-10-12] MEDS: PIPERACILLIN-TAZOBACTAM 3.375 GM in SODIUM CHLORIDE 0.9% 100 ML IVPB SCH ×2 (16:15→23:46)
[2022-10-12] MEDS: ALPRAZolam 0.5 MG TAB PO PRN (16:15)
[2022-10-12 16:27] LABS: Glucose,Whole Blood 378 mg/dL (70-110)
[2022-10-12] MEDS: NICOTINE 21MG/24HR PATCH TRANSDERM SCH (16:54)
--- NOTE | 2022-10-12 17:06 | P.CONS ---
History of Present Illness - Reason for Consult Consult date: 10/12/22 Lung mass, liver masses - History of Present Illness The patient is a 59-year-old white female with multiple medical problems, including a [id number] history of smoking. The patient states that she was in her usual state of health, when she developed coughing with wheezing and some shortness of breath on exertion, about 6 weeks ago. The patient had about 3 courses of outpatient antibiotics, with only or should intermittently be followed by recurrence. He therefore came into the emergency room, where chest x-ray showed right upper lobe masslike opacity. Patient's EKG showed some left atrial enlargement. CTA of the chest showed right upper lobe hilar mass, causing obstruction, along with mediastinal adenopathy, multiple hypodensities in the liver, largest 3 cm, as well as a 6.9 cm cystic appearing mass involving the right adrenal. The patient was therefore admitted for further evaluation and recommendations. She denied any prior history of malignancy. She had any significant weight loss. She states that her performance status prior to about 6 weeks ago was well maintained. Review of Systems Constitutional: Reports fatigue Eyes: denies blurred vision, denies pain Ears: deny: decreased hearing, ear discharge, earache, tinnitus Ears, nose, mouth and throat: Denies headache, Denies sore throat Cardiovascular: Reports dyspnea on exertion Respiratory: Reports cough with sputum, Reports dyspnea, Reports wheezing Gastrointestinal: Denies abdominal pain, Denies diarrhea, Denies nausea, Denies vomiting Genitourinary: Denies dysuria, Denies hematuria Menstruation: Reports postmenopausal Musculoskeletal: Reports muscle weakness Integumentary: Denies pruritus, Denies rash Neurological: Reports weakness Psychiatric: Denies anxiety, Denies depression Endocrine: Reports fatigue, Reports high blood sugars Hematologic/Lymphatic: Reports as per HPI Past Medical History Past Medical History: CVA/TIA, Diabetes Mellitus, Hyperlipidemia, Hypertension History of Any Multi-Drug Resistant Organisms: None Reported Past Surgical History: Appendectomy, Section, Cholecystectomy, Hysterectomy Additional Past Surgical History / Comment(s): colon resection Past Anesthesia/Blood Transfusion Reactions: No Reported Reaction Past Psychological History: Depression Smoking Status: Current every day smoker Past Alcohol Use History: None Reported Past Drug Use History: None Reported Medications and Allergies Home Medications Medication Instructions Recorded Confirmed Type Albuterol Inhaler [Ventolin Hfa 2 puff INHALATION RT-Q6H PRN 10/11/22 10/11/22 History Inhaler] Atorvastatin Calcium 40 mg PO HS 10/11/22 10/11/22 History Empagliflozin [Jardiance] 10 mg PO DAILY 10/11/22 10/11/22 History Metoprolol Tartrate [Lopressor] 25 mg PO DAILY 10/11/22 10/11/22 History Semaglutide [Ozempic] 0.5 mg SQ MO 10/11/22 10/11/22 History Sertraline [Zoloft] 100 mg PO BID 10/11/22 10/11/22 History Allergies Allergy/AdvReac Type Severity Reaction Status Date / Time bupropion [From Wellbutrin] Allergy Confusion Verified 10/11/22 13:17 codeine Allergy Nausea & Verified 10/11/22 13:17 Vomiting Sulfa (Sulfonamide Allergy Nausea & Verified 10/11/22 13:17 Antibiotics) Vomiting & Diarrhea Physical Exam Vitals: Vital Signs Temp Pulse Resp BP Pulse Ox FiO2 10/12/22 12:00 98.5 F 94 19 148/74 92 L 10/12/22 08:25 95 10/12/22 08:00 98.6 F 83 18 129/73 95 10/12/22 04:00 98.3 F 83 18 157/85 97 10/12/22 02:00 18 10/11/22 23:25 97.9 F 83 18 104/66 96 10/11/22 20:00 98.2 F 87 18 157/79 93 L 10/11/22 19:42 93 L 21 10/11/22 18:09 98 F 88 18 139/62 91 L Intake and Output 10/12/22 10/12/22 10/12/22 06:59 14:59 22:59 Intake Total 236 Balance 236 Intake: Oral 236 Other: Voiding Method Toilet # Voids 2 - Constitutional General appearance: no acute distress - EENT Eyes: EOMI, PERRLA ENT: hearing grossly normal, normal oropharynx - Neck Neck: no lymphadenopathy Thyroid: bilateral: normal size - Respiratory Respiratory: bilateral: wheezing (Throughout right lung field, and left upper lobe) - Cardiovascular Rhythm: regular Heart sounds: normal: S1, S2 - Gastrointestinal General gastrointestinal: normal bowel sounds, soft - Integumentary Integumentary: normal - Neurologic Neurologic: CNII-XII intact - Musculoskeletal Musculoskeletal: strength equal bilaterally - Psychiatric Psychiatric: A&O x's 3, appropriate affect Results CBC & Chem 7: 10/12/22 08:02 10/11/22 13:04 Labs: Abnormal Lab Results - Last 24 Hours (Table) 10/11/22 10/11/22 10/11/22 Range/Units 13:04 13:04 19:49 WBC (3.8-10.6) k/uL Hct (34.0-46.0) % Plt Count (150-450) k/uL Neutrophils # (1.3-7.7) k/uL POC Glucose (mg/dL) 251 H (70-110) mg/dL Hemoglobin A1c 8.2 H (0.0-6.0) % Procalcitonin 0.17 H (0.02-0.09) ng/mL 10/12/22 10/12/22 10/12/22 Range/Units 06:21 08:02 11:28 WBC 14.8 H (3.8-10.6) k/uL Hct 47.0 H (34.0-46.0) % Plt Count 137 L (150-450) k/uL Neutrophils # 12.6 H (1.3-7.7) k/uL POC Glucose (mg/dL) 194 H 240 H (70-110) mg/dL Hemoglobin A1c (0.0-6.0) % Procalcitonin (0.02-0.09) ng/mL 10/12/22 Range/Units 16:25 WBC (3.8-10.6) k/uL Hct (34.0-46.0) % Plt Count (150-450) k/uL Neutrophils # (1.3-7.7) k/uL POC Glucose (mg/dL) 378 H (70-110) mg/dL Hemoglobin A1c (0.0-6.0) % Procalcitonin (0.02-0.09) ng/mL Microbiology - Last 24 Hours (Table) 10/11/22 13:04 Blood Culture - Preliminary Blood No Growth after 24 hours 10/12/22 08:25 Sputum Culture - Preliminary Sputum Comments: EKG image and report reviewed Chest x-ray: report reviewed CT scan - chest: report reviewed Assessment and Plan (1) Mass of right lung Narrative/Plan: The patient is presenting with symptoms as described, that did not respond to outpatient treatment. Imaging is highly suggestive of metastatic malignancy, with primary most likely in the right lung. -The imaging results and clinical implications were discussed in detail with her. She was advised that at this time the primary differential is metastatic malignancy. She will need pathologic confirmation. She has been seen by pulmonary medicine, and bronchoscopy is planned. We will await those results. - Check brain imaging - PET scan as outpatient for completion of staging Current Visit: Yes Status: Acute Code(s): R91.8 - OTHER NONSPECIFIC ABNORMAL FINDING OF LUNG FIELD SNOMED Code(s): 809140749 (2) Acute bronchospasm Narrative/Plan: The patient has wheezing throughout the right lung field. This is probably due to a combination of obstruction, exacerbation of reactive airway disease and probable postobstructive pneumonia. Defer to the admitting service and pulmonary medicine for ongoing treatment. Current Visit: Yes Status: Acute Code(s): J98.01 - ACUTE BRONCHOSPASM SNOMED Code(s): 97693028459448
[2022-10-12] MEDS: BUDESONIDE 1 MG/2 ML NEBU INHALATION SCH (19:54)
[2022-10-12] MEDS: FORMOTEROL FUMARATE 20 MCG/2 ML NEBU INHALATION SCH (19:54)
[2022-10-12] MEDS: IPRATROPIUM-ALBUTEROL 3 ML NEB INHALATION PRN (19:54)
[2022-10-12 20:06] LABS: Glucose,Whole Blood 238 mg/dL (70-110)
[2022-10-12] MEDS: ATORVASTATIN 40 MG TAB PO SCH (20:59)
[2022-10-13 06:02] LABS: Glucose,Whole Blood 321 mg/dL (70-110)
[2022-10-13] MEDS: methylPREDNISolone SOD SUCCI 125 MG/2 ML VIAL IV SCH ×2 (06:31→12:42)
[2022-10-13] MEDS: INSULIN ASPART (NovoLOG) 100 UNIT/ML VIAL SQ SCH ×2 (06:32→12:42)
[2022-10-13] MEDS ORDERED: LIDOCAINE 1% (10MG/ML) FOR IV START INTRADERMA PRN (07:23)
[2022-10-13] MEDS ORDERED: LACTATED RINGERS 1,000 ML IV SCH (07:30)
[2022-10-13] MEDS: IPRATROPIUM-ALBUTEROL 3 ML NEB INHALATION PRN ×2 (08:47→16:11)
[2022-10-13] MEDS: BUDESONIDE 1 MG/2 ML NEBU INHALATION SCH (08:47)
[2022-10-13] MEDS: FORMOTEROL FUMARATE 20 MCG/2 ML NEBU INHALATION SCH (08:47)
[2022-10-13] MEDS: METOPROLOL TARTRATE 25 MG TAB PO SCH (09:03)
[2022-10-13] MEDS: ALPRAZolam 0.5 MG TAB PO PRN (09:03)
[2022-10-13] MEDS: PIPERACILLIN-TAZOBACTAM 3.375 GM in SODIUM CHLORIDE 0.9% 100 ML IVPB SCH ×2 (09:03→15:51)
[2022-10-13] MEDS: NICOTINE 21MG/24HR PATCH TRANSDERM SCH (09:04)
[2022-10-13] MEDS: SERTRALINE 100 MG TAB PO SCH (09:04)
[2022-10-13] MEDS ORDERED: IV FLUID CONTINUATION 1,000 ML IV ONE (10:19)
[2022-10-13 11:08] LABS: Glucose,Whole Blood 237 mg/dL (70-110)
--- NOTE | 2022-10-13 11:31 | PCN ---
PROCEDURE NOTE PULMONARY/CRITICAL CARE PROCEDURE NOTE: PROCEDURES PERFORMED: Bronchoscopy; airway examination; therapeutic lavage; BAL, distal right mainstem; brushes, distal right mainstem; Thakur needle biopsies, distal right mainstem; and endobronchial biopsies, distal right mainstem. PREOPERATIVE DIAGNOSIS: Rule out lung cancer. POSTOPERATIVE DIAGNOSIS: Rule out lung cancer. PATTERN FITTER: Dr. Karen Quick. There was informed consent and universal timeout. The patient's procedure was done in the operating room #2. She did receive general anesthesia. DESCRIPTION OF PROCEDURE: After the patient was under the effects of general anesthesia, the bronchoscope was inserted through the bronchoscope adapter connected to the endotracheal tube. The bronchoscope was taken down the endotracheal tube into the trachea. The left side was evaluated first. The left upper lobe and its 2 segments, the lingula and its 2 segments, and the left lower lobe and its 4 segments were all found to be normal without dominant mass or tumor. No secretions. On the right side, in the mid to distal right mainstem, there was significant tumor burden. It was approaching on the lumen of the right mainstem, we could not get into the right upper lobe. It was quite extensive. There was some mucus adherent to the tumor. Next, we did multiple endobronchial biopsies under direct visualization. Subsequent to that, we did a Thakur needle biopsies of the same location. Brushes and washes were done as well. The patient tolerated the procedure well. There was minimal bleeding. She was stable on the ventilator throughout the procedure. The bronchoscope was withdrawn. The specimens will be sent to the laboratory for analysis. The patient tolerated the procedure well. As I mentioned, she was stable throughout the procedure. The patient will be recovered. We had a chance to speak to the patient's and show him actually a picture of the distal right mainstem. We will await the final diagnosis. MMODL / IJN: [id number] /
--- NOTE | 2022-10-13 11:52 | P.PN ---
Subjective Progress Note Date: 10/13/22 Hospital Course: 61-year-old female with history of hypertension, dyslipidemia, and nicotine de pendence presenting with shortness of breath and cough. In the ED, vital signs have been within normal limits. Patient saturating well on room air. Labs showed normal white blood cell count, elevated hemoglobin, mild thrombocytopenia, mild hyponatremia 136, mild transaminitis, elevated d-dimer at 1.56. Influenza a and B, RSV, and COVID-19 was negative. Chest x-ray reported as right upper lobe opacity concerning for pneumonia. EKG showed normal sinus rhythm with nonspecific ST-T wave abnormalities reviewed by me. CTA showed right pulmonary hilum/right upper lobe mass with mediastinal lymphadenopathy concerning for primary malignancy with metastatic disease. Right adrenal possible cystic lesion, numerous liver hypodensities also concerning for metastatic disease. Subacute left posterior rib fracture. Patient admitted for further malignancy workup. Pulmonology and oncology consulted. Patient also being treated for COPD exacerbation, possibly postobstructive pneumonia. Patient pending bronchoscopy. MRI brain per oncology. Subjective: Patient seen and examined at bedside. No acute events overnight. Patient claims that her breathing and cough has slightly improved. She denies any abdominal pain, nausea, vomiting, diarrhea, constipation, or urinary complaints. Pertinent positives and negatives as discussed above, a complete review of systems was performed and all other systems are negative. Vitals Signs Reviewed. General: nontoxic, no distress, appears at stated age Derm: warm, dry Head: atraumatic, normocephalic, symmetric Eyes: EOMI, no lid lag, anicteric sclera Mouth: no lip lesion, mucus membranes moist Cardiovascular: S1S2 reg, no murmur Lungs: Reduced breath sounds in right upper lobe, supplemental oxygen Abdominal: soft, nontender to palpation, no guarding, no appreciable organomegaly Ext: no gross muscle atrophy, no edema, no contractures Neuro: CN II-XI grossly intact, no focal neuro deficits Psych: Alert, oriented, appropriate affect Assessment and Plan: Primary lung malignancy with metastatic disease Possible postobstructive pneumonia Possible COPD exacerbation Subacute left posterior fracture right adrenal mass Liver metastasis Acute on chronic dyspnea Elevated d-dimer Mild transaminitis Mild thrombocytopenia -procalcitonin elevated -Sputum cultures, blood cultures -Antibiotics, steroids, bronchodilators -Pulmonology, and oncology consulted -Bronchoscopy pending today -MRI brain -PET scan as an outpatient for staging Nicotine dependence -Counseled regarding smoking cessation Type 2 diabetes mellitus - hold home meds - SSI History of hypertension History of dyslipidemia -Continue home medications DVT ppx: Lovenox Code status: DNR/DNI Anticipated discharge place: Home Anticipated discharge time: pending clinical course Objective - Vital Signs Vital signs: Vital Signs Temp 96.8 F L 10/13/22 10:45 Pulse 88 10/13/22 11:45 Resp 18 10/13/22 11:45 BP 117/65 10/13/22 11:45 Pulse Ox 96 10/13/22 11:45 FiO2 21 10/11/22 19:42 Intake & Output 10/12/22 10/13/22 10/13/22 18:59 06:59 18:59 Intake Total 354 200 Balance 354 200 Intake: IV 200 Oral 354 Other: Voiding Method Toilet Toilet # Voids 2 1 - Labs CBC & Chem 7: 10/12/22 08:02 10/11/22 13:04 Labs: Abnormal Lab Results - Last 24 Hours (Table) 10/12/22 10/12/22 10/13/22 Range/Units 16:25 20:04 06:00 POC Glucose (mg/dL) 378 H 238 H 321 H (70-110) mg/dL 10/13/22 Range/Units 11:05 POC Glucose (mg/dL) 237 H (70-110) mg/dL Microbiology - Last 24 Hours (Table) 10/12/22 08:25 Gram Stain - Preliminary Sputum Sputum Culture - Preliminary 10/11/22 13:04 Blood Culture - Preliminary Blood No Growth after 24 hours 10/11/22 13:04 Blood Culture - Preliminary Blood No Growth after 24 hours
[2022-10-13 12:06] VITALS: RESP 16
--- NOTE | 2022-10-13 12:11 | P.PN ---
Subjective Progress Note Date: 10/13/22 61-year-old female who was seen in the emergency department on October 11. She came with complaints of shortness of breath, and chest pain. She apparently has a history of hypertension, and COPD from years of tobacco use. She's been smoking for more than 40 years. The patient has been on multiple rounds of antibiotics for "bronchitis". The patient does not currently see a lung doctor. She does not have a family doctor in this area she just recently moved back to this area. Anyway, in the emergency department, she was evaluated with a chest x-ray and a computed tomography scan which suggested infiltrate or mass in the right upper lobe. The computed tomography scan suggest a right perihilar mass, with obstruction of the right mainstem bronchus, and a postobstructive pneumonia. In addition, the patient has lesions in the liver suggestive of metastatic disease. We suspect that she has bronchogenic cancer, with metastasis. We were sirena enough to secure a spot in the operating room [facility] for bronchoscopy, and biopsy. Lab data includes a white count of 14.8, hemoglobin 15.6, hematocrit 47, and platelet count of 237,000. D-dimer was 1.56. Sodium 136, potassium 4.1, chloride 101, CO2 27, BUN 10, and creatinine 0.43. The AST was 37. Pro-calcitonin level was 0.17. Testing for influenza, RSV, and coronavirus were negative. Chest x-ray showed right upper lobe airspace disease. CTA was negative for pulmonary embolism. There is a right pulmonary mass, with mediastinal adenopathy, concerning for primary malignancy with metastatic disease to the liver. There are numerous liver hypodensities concerning for metastatic disease. The patient is seen today 10/13/2022 in follow-up in the selective care unit. She is currently resting comfortably in bed. Awake and alert in no acute distress. Maintaining O2 saturations in the mid 90s on 2 L/m per nasal cannula. She did undergo bronchoscopy with biopsies today. She is noted lesions within the right mainstem bronchus obstructing the right upper lobe and most of the right lower and middle lobe as well. She tolerated the procedure well. Blood cultures reveal no growth to date. Sputum culture pending. She is continued on DuoNeb inhalations, Pulmicort and Perforomist inhalations, IV Solu-Medrol. NicoDerm patch in place. She remains on antibiotics in the form of Zosyn. Objective - Vital Signs Vital signs: Vital Signs Temp 96.8 F L 10/13/22 10:45 Pulse 88 10/13/22 11:45 Resp 18 10/13/22 11:45 BP 117/65 10/13/22 11:45 Pulse Ox 96 10/13/22 11:45 FiO2 21 10/11/22 19:42 Intake & Output 10/12/22 10/13/22 10/13/22 18:59 06:59 18:59 Intake Total 354 200 Balance 354 200 Intake: IV 200 Oral 354 Other: Voiding Method Toilet Toilet # Voids 2 1 - Exam GENERAL EXAM: Alert, very pleasant 61-year-old female patient, and 2 L nasal cannula, comfortable in no apparent distress. HEAD: Normocephalic. EYES: Normal reaction of pupils, equal size. NOSE: Clear with pink turbinates. THROAT: No erythema or exudates. NECK: No masses, no JVD. CHEST: No chest wall deformity. LUNGS: Equal air entry with scattered rhonchi, diminished breath sounds on the right. CVS: S1 and S2 normal with no audible murmur, regular rhythm. ABDOMEN: No hepatosplenomegaly, normal bowel sounds, no guarding or rigidity. SPINE: No scoliosis or deformity SKIN: No rashes CENTRAL NERVOUS SYSTEM: No focal deficits, tone is normal in all 4 extremities. EXTREMITIES: There is no peripheral edema. No clubbing, no cyanosis. Peripheral pulses are intact. - Labs CBC & Chem 7: 10/12/22 08:02 10/11/22 13:04 Labs: Abnormal Lab Results - Last 24 Hours (Table) 10/12/22 10/12/22 10/13/22 Range/Units 16:25 20:04 06:00 POC Glucose (mg/dL) 378 H 238 H 321 H (70-110) mg/dL 10/13/22 Range/Units 11:05 POC Glucose (mg/dL) 237 H (70-110) mg/dL Microbiology - Last 24 Hours (Table) 10/12/22 08:25 Gram Stain - Preliminary Sputum Sputum Culture - Preliminary 10/11/22 13:04 Blood Culture - Preliminary Blood No Growth after 24 hours 10/11/22 13:04 Blood Culture - Preliminary Blood No Growth after 24 hours Assessment and Plan Assessment: Acute COPD exacerbation, complicated by right hilar mass, and postobstructive pneumonia. 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 The patient did undergo bronchoscopy with biopsies today 10/13/2022. There is noted endobronchial lesions in the right mainstem bronchus with near complete occlusion of the right upper and middle/lower lobes. Pathology pending. Ongoing tobacco use with nicotine addiction. History of diabetes mellitus. History of CVA. History of hypertension. History of hyperlipidemia. History of depression. Multiple previous surgeries including colon resection, appendectomy, section, cholecystectomy, and hysterectomy. Plan: The patient was seen and evaluated She did undergo bronchoscopy with biopsies today Check potentially go home later this afternoon if she is feeling up to it Requesting nebulizer and DuoNeb inhalations for home Recommend Symbicort, albuterol HFA Continue with the prednisone taper starting at 40 mg for 4 days If home today, close follow-up in our office later next week for pathology results Will need outpatient PET scan, MRI of the brain for staging Further recommendations pending pathology results The patient has requested DO NOT RESUSCITATE/DO NOT INTUBATE CODE STATUS She is also considering possibly doing no treatment I have personally seen and examined the patient, performed the documentation and the assessment and plan as written. Number of minutes spent on the visit: 10.
[2022-10-13 12:25] LABS: Glucose,Whole Blood 273 mg/dL (70-110)
[2022-10-13] MEDS: oxyCODONE-APAP 5-325MG 1 EACH TAB PO PRN (15:48)
[2022-10-13 15:53] VITALS: BP 149/71; TEMP 98.7
--- NOTE | 2022-10-13 15:59 | P.DS ---
Providers Date of admission: 10/11/22 14:26 Expected date of discharge: 10/13/22 Attending physician: Ashwin Lai MD Consults: 10/11/22 15:38 Consult Physician Urgent Consulting Provider: Mann Sandoval Consult Reason/Comments: new lung cancer with mets Do you want consulting provider notified?: Yes 10/11/22 15:40 Consult Physician Urgent Consulting Provider: Zane Bruno Consult Reason/Comments: New lung cancer with mets Do you want consulting provider notified?: Yes Primary care physician: Stated None Hospital Course: Discharge Diagnosis: Primary lung malignancy with metastatic disease Possible postobstructive pneumonia Possible COPD exacerbation Subacute left posterior fracture right adrenal mass Liver metastasis Acute on chronic dyspnea Elevated d-dimer Mild transaminitis Mild thrombocytopenia Nicotine dependence Type 2 diabetes mellitus History of hypertension History of dyslipidemia Hospital Course: 61-year-old female with history of hypertension, dyslipidemia, and nicotine dependence presenting with shortness of breath and cough. In the ED, vital signs have been within normal limits. Patient saturating well on room air. Labs showed normal white blood cell count, elevated hemoglobin, mild thrombocytopenia, mild hyponatremia 136, mild transaminitis, elevated d-dimer at 1.56. Influenza a and B, RSV, and COVID-19 was negative. Chest x-ray reported as right upper lobe opacity concerning for pneumonia. EKG showed normal sinus rhythm with nonspecific ST-T wave abnormalities reviewed by me. CTA showed right pulmonary hilum/right upper lobe mass with mediastinal lymphadenopathy concerning for primary malignancy with metastatic disease. Right adrenal possible cystic lesion, numerous liver hypodensities also concerning for met astatic disease. Subacute left posterior rib fracture. Patient admitted for further malignancy workup. Pulmonology and oncology consulted. Patient also being treated for COPD exacerbation, possibly postobstructive pneumonia. Patient had bronchoscopy showed significant tumor burden on the right side in the mid to distal right mainstem. He is approaching on the lumina the right mainstem. Unable to visualize right upper lobe. Biopsies performed. Patient didn't want to stay any longer in the hospitalization for further imaging. She will follow up with oncology and pulmonology as an outpatient for brain MRI, PET scan, further chemotherapy/radiation therapy. She will be discharged with bronchodilators, short course of steroids, short course of antibiotics. Patient seen and examined at bedside. Vital signs reviewed and stable. General: nontoxic, no distress, appears at stated age Derm: warm, dry Head: atraumatic, normocephalic, symmetric Eyes: EOMI, no lid lag, anicteric sclera Mouth: no lip lesion, mucus membranes moist Cardiovascular: S1S2 reg, no murmur Lungs: Reduced breath sounds in right upper lobe, supplemental oxygen Abdominal: soft, nontender to palpation, no guarding, no appreciable organomegaly Ext: no gross muscle atrophy, no edema, no contractures Neuro: CN II-XI grossly intact, no focal neuro deficits Psych: Alert, oriented, appropriate affect A total of 37 minutes of time were spent preparing this complex discharge summary. Patient was discharged on 10/13/22 at 15:49. Patient Condition at Discharge: Stable Plan - Discharge Summary Discharge Rx Participant: No New Discharge Prescriptions: New ALPRAZolam [Xanax] 0.5 mg PO TID PRN #14 tab PRN Reason: Anxiety Amoxic-Pot Clav 875-125Mg [Augmentin 875-125] 1 tab PO BID 4 Days #8 tab predniSONE [Deltasone] 40 mg PO DAILY #8 tab Budesonide-Formot 160-4.5 Mcg [Symbicort 160-4.5 Mcg Inhaler] 2 puff INHALATION BID #60 each Nicotine 21Mg/24Hr Patch [Habitrol] 1 each TRANSDERM DAILY #20 patch Continue Metoprolol Tartrate [Lopressor] 25 mg PO DAILY Atorvastatin Calcium 40 mg PO HS Semaglutide [Ozempic] 0.5 mg SQ MO Sertraline [Zoloft] 100 mg PO BID Albuterol Inhaler [Ventolin Hfa Inhaler] 2 puff INHALATION RT-Q6H PRN #60 each PRN Reason: Shortness Of Breath Empagliflozin [Jardiance] 10 mg PO DAILY Discharge Medication List Atorvastatin Calcium 40 mg PO HS 10/11/22 [History] Empagliflozin [Jardiance] 10 mg PO DAILY 10/11/22 [History] Metoprolol Tartrate [Lopressor] 25 mg PO DAILY 10/11/22 [History] Semaglutide [Ozempic] 0.5 mg SQ MO 10/11/22 [History] Sertraline [Zoloft] 100 mg PO BID 10/11/22 [History] ALPRAZolam [Xanax] 0.5 mg PO TID PRN #14 tab 10/13/22 [Rx] Albuterol Inhaler [Ventolin Hfa Inhaler] 2 puff INHALATION RT-Q6H PRN #60 each 10/13/22 [Rx] Amoxic-Pot Clav 875-125Mg [Augmentin 875-125] 1 tab PO BID 4 Days #8 tab 10/13/22 [Rx] Budesonide-Formot 160-4.5 Mcg [Symbicort 160-4.5 Mcg Inhaler] 2 puff INHALATION BID #60 each 10/13/22 [Rx] Nicotine 21Mg/24Hr Patch [Habitrol] 1 each TRANSDERM DAILY #20 patch 10/13/22 [Rx] predniSONE [Deltasone] 40 mg PO DAILY #8 tab 10/13/22 [Rx] Follow up Appointment(s)/Referral(s): Zane Bruno MD [STAFF PHYSICIAN] - 1 Week Mann Sandoval DO [Doctor of Osteopathic Medicine] - 1 Week None,Stated [Primary Care Provider] - 1-2 days Ambulatory/Diagnostic Orders: Nebulizer - to be accompanied by form#3009(adult) or #0152(peds) [DME.AMB1] Location: None Selected Patient Instructions/Handouts: *Surgery [facility] - Bronchoscopy Discharge Instructions, Lung Cancer (DC) Activity/Diet/Wound Care/Special Instructions: Please follow up with oncology and pulmonology to discuss the next steps for cancer management. Discharge Disposition: HOME SELF-CARE
[2022-10-13 16:21] VITALS: PULSE 86
[2022-10-13 22:45] LABS: Appearance,BF Bloody
[2022-10-14] MEDS ORDERED: ONDANSETRON 4 MG/2 ML VIAL IVP PRN (07:00)
[2022-10-14] MEDS ORDERED: fentaNYL (PF) 50 MCG/ML 2 ML AMP IV PRN (07:00)
[2022-10-14] MEDS ORDERED: NICOTINE 21MG/24HR PATCH TRANSDERM SCH (09:00)
== END 2022-10-13 16:53 | disposition home or self-care (01) | DRG 180 ==
LOC: EC 12:07 → 3SCARD 14:26
PROVIDERS: ADMIT Student in an Organized Health Care Education/Training Program; ATTEND Student in an Organized Health Care Education/Training Program
PROC: 0B938ZZ Drainage of Right Main Bronchus, Via Natural or Artificial Opening Endoscopic (ICD-10-PCS; principal; 2022-10-13 10:00)
PROC: 0BB38ZX Excision of Right Main Bronchus, Via Natural or Artificial Opening Endoscopic, Diagnostic (ICD-10-PCS; 2022-10-13 10:00)
DX: C34.01 Malignant neoplasm of right main bronchus (principal); J18.9 Pneumonia, unspecified organism; E87.1 Hypo-osmolality and hyponatremia; J44.0 Chronic obstructive pulmonary disease with (acute) lower respiratory infection; J44.1 Chronic obstructive pulmonary disease with (acute) exacerbation; J45.901 Unspecified asthma with (acute) exacerbation; C78.7 Secondary malignant neoplasm of liver and intrahepatic bile duct; S22.32XA Fracture of one rib, left side, initial encounter for closed fracture; D69.6 Thrombocytopenia, unspecified; I11.9 Hypertensive heart disease without heart failure; F32.A Depression, unspecified; E11.9 Type 2 diabetes mellitus without complications; F17.210 Nicotine dependence, cigarettes, uncomplicated; E27.9 Disorder of adrenal gland, unspecified; E78.5 Hyperlipidemia, unspecified; R09.02 Hypoxemia; R59.0 Localized enlarged lymph nodes; Z66 Do not resuscitate; Z20.822 Contact with and (suspected) exposure to COVID-19; Z87.09 Personal history of other diseases of the respiratory system; Z79.84 Long term (current) use of oral hypoglycemic drugs; Z79.85 Long-term (current) use of injectable non-insulin antidiabetic drugs; Z86.73 Personal history of transient ischemic attack (TIA), and cerebral infarction without residual deficits; Z79.899 Other long term (current) drug therapy; Z88.5 Allergy status to narcotic agent; Z88.2 Allergy status to sulfonamides; Z88.8 Allergy status to other drugs, medicaments and biological substances; Z90.49 Acquired absence of other specified parts of digestive tract
CPT/HCPCS: 31623; 31624; 31625; 31629; 36415; 71046; 71275; 80053; 83036; 83605; 83735; 83880; 84145; 84484; 85025; 85379; 85610; 85730; 87040; 87070; 87205; 87636; 89050; 93005; 94640; 94760; 96365; 96368; 96375; 99285

== ENCOUNTER 2022-10-17 09:10 | Inpatient (IN) | payer MEDICARE ==
[2022-10-17 11:05] LABS: Prothrombin Time 10.6 sec (9.0-12.0)
--- NOTE | 2022-10-17 11:07 | XR ---
EXAMINATION TYPE: XR chest 2V DATE OF EXAM: 10/17/2022 11:02 AM COMPARISON: Chest radiographs from 10/12/2022, CTA chest 10/11/2022. TECHNIQUE: XR chest 2V Frontal and lateral views of the chest. CLINICAL INDICATION:Female, 61 years old with history of difficulty breathing; FINDINGS: Lungs/Pleura: No pleural effusion or pneumothorax. Decrease appearance of focal opacity in the periph eral right upper lobe extending towards the hilum. Increased bibasilar patchy airspace opacities. Omar kground COPD changes. Pulmonary vascularity: Unremarkable. Heart/mediastinum: Cardiomediastinal silhouette is unremarkable. Musculoskeletal: No acute osseous pathology. IMPRESSION: Decreased appearance of focal opacity in the peripheral right upper lobe extending towards the hilum. There is bibasilar patchy increased airspace opacities concerning for pneumonia.
[2022-10-17 11:14] LABS: Basophils % (A) 0 %; Eosinophils % (A) 0 %; HCT 47.2 % (34.0-46.0); HGB 15.8 gm/dL (11.4-16.0); Lymphocytes % (A) 7 %; MCH 30.7 pg (25.0-35.0); MCHC 33.4 g/dL (31.0-37.0); Mean Platelet Volume 11.1; Monocytes # (A) 0.7 k/uL (0-1.0); Monocytes % (A) 5 %; Neutrophils # (A) 13.3 k/uL (1.3-7.7); Neutrophils % (A) 86 %; RBC 5.13 m/uL (3.80-5.40); RDW 13.8 % (11.5-15.5); WBC 15.5 k/uL (3.8-10.6)
[2022-10-17 11:21] LABS: Partial Thromboplastin Time 19.9 sec (22.0-30.0)
[2022-10-17 11:57] LABS: ALT 24 U/L (4-34); AST 29 U/L (14-36); African American GFR (CKD) >90 (>60 ml/min/1.73 sqM); Albumin 3.7 g/dL (3.5-5.0); Alkaline Phosphatase 193 U/L (38-126); Anion Gap 9 mmol/L; Blood Urea Nitrogen 25 mg/dL (7-17); Calcium 9.2 mg/dL (8.4-10.2); Carbon Dioxide 25 mmol/L (22-30); Chloride 96 mmol/L (98-107); Glucose 430 mg/dL (74-99); Non-African American GFR(CKD) >90 (>60 ml/min/1.73 sqM); Potassium 4.5 mmol/L (3.5-5.1); Sodium 130 mmol/L (137-145); Total Protein 6.4 g/dL (6.3-8.2)
[2022-10-17] MEDS ORDERED: SODIUM CHLORIDE 0.9% 1,000 ML IV STA (11:59)
[2022-10-17 12:27] LABS: Platelet Count 119 k/uL (150-450); RBC Morphology Normal
--- NOTE | 2022-10-17 12:29 | ED ---
SOB HPI - General Chief Complaint: Shortness of Breath Stated Complaint: SOB, Lung CA Time Seen by Provider: 10/17/22 09:52 Source: patient, family, RN notes reviewed Mode of arrival: wheelchair Limitations: no limitations - History of Present Illness Initial Comments: Patient is a 61-year-old female presenting to the emergency room at e direction of Dr. Sandoval's office for hypoxemia and shortness of breath. She was presenting to Dr. Samayoa's office today for follow-up from hospitalization from October 11 to October 13 in which she presented with shortness of breath and underwent a biopsy diagnosing her with preliminary diagnosis of lung cancer with multiple metastases. She does not have oxygen or a nebulizer at home. She is a smoker. She has quit smoking since being diagnosed and is utilizing nicotine patches. She reports difficulty in catching her breath along with cough. She denies any chest pain not related to cough, abdominal pain, nausea, vomiting, fevers or chills. She does report generalized malaise. In addition to her newly diagnosed lung cancer she has a past medical history significant for TIA, hypertension, hyperlipidemia and diabetes. - Related Data Home Medications Medication Instructions Recorded Confirmed Atorvastatin Calcium 40 mg PO HS 10/11/22 10/17/22 Empagliflozin [Jardiance] 10 mg PO DAILY 10/11/22 10/17/22 Metoprolol Tartrate [Lopressor] 25 mg PO DAILY 10/11/22 10/17/22 Semaglutide [Ozempic] 0.5 mg SQ MO 10/11/22 10/17/22 Sertraline [Zoloft] 100 mg PO BID 10/11/22 10/17/22 Budesonide-Formot 160-4.5 Mcg 2 puff INHALATION RT-BID 10/17/22 10/17/22 [Symbicort 160-4.5 Mcg Inhaler] Nicotine 21Mg/24Hr Patch [Habitrol] 1 patch TRANSDERM DAILY 10/17/22 10/17/22 Previous Rx's Medication Instructions Recorded ALPRAZolam [Xanax] 0.5 mg PO TID PRN #14 tab 10/13/22 Albuterol Inhaler [Ventolin Hfa 2 puff INHALATION RT-Q6H PRN #60 10/13/22 Inhaler] each Amoxic-Pot Clav 875-125Mg 1 tab PO BID 4 Days #8 tab 10/13/22 [Augmentin 875-125] Allergies Allergy/AdvReac Type Severity Reaction Status Date / Time bupropion [From Wellbutrin] Allergy Confusion Verified 10/17/22 11:07 codeine Allergy Nausea & Verified 10/17/22 11:07 Vomiting Sulfa (Sulfonamide Allergy Nausea & Verified 10/17/22 11:07 Antibiotics) Vomiting & Diarrhea Review of Systems ROS Statement: Those systems with pertinent positive or pertinent negative responses have been documented in the HPI. ROS Other: All systems not noted in ROS Statement are negative. Past Medical History Past Medical History: CVA/TIA, Diabetes Mellitus, Hyperlipidemia, Hypertension History of Any Multi-Drug Resistant Organisms: None Reported Past Surgical History: Appendectomy, Section, Cholecystectomy, Hysterectomy Additional Past Surgical History / Comment(s): colon resection Past Anesthesia/Blood Transfusion Reactions: No Reported Reaction Past Psychological History: Depression Smoking Status: Current every day smoker Past Alcohol Use History: None Reported Past Drug Use History: None Reported General Exam - General Exam Comments Initial Comments: GENERAL: No acute distress, well developed, well nourished. appears fatigued HEENT: Normocephalic, atraumatic. Pupils equal, round, reactive to light. Moist mucous membranes. LUNGS: No respiratory distress. lung sounds diminished throughout without adventitious sounds, no use of accessory muscles. HEART: Regular rate and rhythm without murmur, rub, or gallop. ABDOMEN: Normal bowel sounds. Soft, non-tender, non-distended. BACK: Normal inspection. EXTREMITIES: No edema. No tenderness. Moves all extremities. NEUROLOGIC: Alert & oriented x 3. CN II-XII grossly intact. PSYCHIATRIC: Normal affect and behavior. DERMATOLOGIC: Skin intact, without rashes or lesions noted. Limitations: no limitations Course Vital Signs 10/17/22 10/17/22 10/17/22 09:12 12:18 13:10 Temperature 98.0 F 98.7 F Pulse Rate 92 88 87 Respiratory 18 18 18 Rate Blood Pressure 132/74 154/84 157/70 O2 Sat by Pulse 90 L 95 93 L Oximetry 10/17/22 10/17/22 13:29 13:37 Temperature Pulse Rate 88 86 Respiratory Rate Blood Pressure O2 Sat by Pulse Oximetry Medical Decision Making - Medical Decision Making Was pt. sent in by a medical professional or institution (Dr., PA, INTERNAL COMMUNICATIONS MANAGER, urgent care, hospital, or [facility]...) When possible be specific @ -Dr. Sandoval's office Did you speak to anyone other than the patient for history (EMS, parent, family, police, friend...)? What history was obtained from this source @ -Spouse Did you review nursing and triage notes (agree or disagree)? Why? @ -I reviewed and agree with nursing and triage notes Were old charts reviewed (outside hosp., previous admission, EMS record, old EKG, old radiological studies, urgent care reports/EKG's, [facility] records)? Report findings @ -Previous admission reports Differential Diagnosis (chest pain, altered mental status, abdominal pain women, abdominal pain men, vaginal bleeding, weakness, fever, dyspnea, syncope, headache, dizziness, GI bleed, back pain, seizure, CVA, palpatations, mental health)? @ -Differential Dyspnea: Coronary syndrome, arrhythmia, tamponade, asthma, COPD, pulmonary embolism, pneumonia, pneumothorax, pulmonary effusion, anaphylaxis, diabetic ketoacidosis, flailed chest, pulmonary contusion, diaphragmatic rupture, anemia, neuromuscular, this is not meant to be an all-inclusive list. EKG interpreted by me (3pts min.). @ -Sinus rhythm, left atrial enlargement, ventricular rate 82 bpm, VT interval 126 ms, QRS duration 99 ms, QT/QTC 354/393 ms, PRT axes 64, 62, 115 X-rays interpreted by me (1pt min.). @ -Chest x-ray two-view demonstrates bibasilar opacities. No pneumothorax or pleural effusion. CT interpreted by me (1pt min.). @ -None done U/S interpreted by me (1pt. min.). @ -None done What testing was considered but not performed or refused? (CT, X-rays, U/S, labs)? Why? @ -None What meds were considered but not given or refused? Why? @ -None Did you discuss the management of the patient with other professionals (professionals i.e. , SEJAL, INTERNAL COMMUNICATIONS MANAGER, lab, RT, psych nurse, social problems specialist, coke worker, teacher, staff mine warfare officer, watch caser)? Give summary @ -Dr. Ibarra with [facility] regarding recommendation for admission. He is accepting of admission. Was smoking cessation discussed for >3mins.? @ -No Was critical care preformed (if so, how long)? @ -No Were there social determinants of health that impacted care today? How? (Homelessness, low income, unemployed, alcoholism, drug addiction, transportation, low edu. Level, literacy, decrease access to med. care, longterm, rehab)? @ -No Was there de-escalation of care discussed even if they declined (Discuss DNR or withdrawal of care, Hospice)? DNR status @ -No What co-morbidities impacted this encounter? (DM, HTN, Smoking, COPD, CAD, Cancer, CVA, ARF, Chemo, Hep., AIDS, mental health diagnosis, sleep apnea, morbid obesity)? @ - Newly diagnosed lung cancer Was patient admitted / discharged? Hospital course, mention meds given and route, prescriptions, significant lab abnormalities, going to OR and other pertinent info. 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 She was recently hospitalized from October 11 to October 13 for dyspnea and was diagnosed with metastatic lung cancer. At this time she currently does not have any home oxygen or nebulizer. She has not resumed smoking and has a nicotine patch intact. Will start dyspnea workup with CBC, CMP, lactic acid, blood cultures, for plaque swab for Covid flu and RSV along with EKG and chest x-ray. Chest x-ray shows worsening bibasilar opacities concerning for development of pneumonia. Increase in WBC to 15.5 and decrease in platelet count to 119. Increase in neutrophil to 3 team 0.3. No anemia. Blood sugar elevated at 430, BUN elevated 25 sodium low at 1:30 lactic acid normal at 1.4 alkaline phosphatase mildly elevated at 193. Troponin negative. Swabs for influenza, RSV and Covid all negative. EKG demonstrates sinus rhythm. Will give nebulized treatment in the setting and negative viral swabs. Will give IV fluid bolus for elevated BUN and low sodium. Discussed findings with patient and spouse. Recommend admission for hypoxemia and possible pneumonia with IV antibiotics treatment and oxygenation with further follow-up and evaluation by pulmonary. Patient is agreeable to this plan. Spoke with Dr. Castro from [facility] regarding recommendation. He is accepting of admission. No further orders received at this time. Will admit patient in stable condition to [facility] for pneumonia with hypoxemia. Undiagnosed new problem with uncertain prognosis? @ -No Drug Therapy requiring intensive monitoring for toxicity (Heparin, Nitro, Insulin, Cardizem)? @ -No Were any procedures done? @ -No Diagnosis/symptom? @ -Pneumonia with hypoxemia Acute, or Chronic, or Acute on Chronic? @ -Acute Uncomplicated (without systemic symptoms) or Complicated (systemic symptoms)? @ -Complicated Side effects of treatment? @ -No Exacerbation, Progression, or Severe Exacerbation? @ -No Poses a threat to life or bodily function? How? (Chest pain, USA, MD, pneumonia, PE, COPD, DKA, ARF, appy, cholecystitis, CVA, Diverticulitis, Homicidal, Suicida l, threat to staff... and all critical care pts) @ -Yes Diagnosis/symptom? @ -Dehydration Acute, or Chronic, or Acute on Chronic? @ -Acute Uncomplicated (without systemic symptoms) or Complicated (systemic symptoms)? @ -Uncomplicated Side effects of treatment? @ -none Exacerbation, Progression, or Severe Exacerbation] @ -no Poses a threat to life or bodily function? @ -no Case discussed with Dr. Allan. - Lab Data Result diagrams: 10/17/22 10:37 10/17/22 10:37 Lab Results 10/17/22 10/17/22 10/17/22 Range/Units 10:37 10:37 10:37 WBC 15.5 H (3.8-10.6) k/uL RBC 5.13 (3.80-5.40) m/uL Hgb 15.8 (11.4-16.0) gm/dL Hct 47.2 H (34.0-46.0) % MCV 92.0 (80.0-100.0) fL MCH 30.7 (25.0-35.0) pg MCHC 33.4 (31.0-37.0) g/dL RDW 13.8 (11.5-15.5) % Plt Count 119 L (150-450) k/uL MPV 11.1 Neutrophils % 86 % Lymphocytes % 7 % Monocytes % 5 % Eosinophils % 0 % Basophils % 0 % Neutrophils # 13.3 H (1.3-7.7) k/uL Lymphocytes # 1.0 (1.0-4.8) k/uL Monocytes # 0.7 (0-1.0) k/uL Eosinophils # 0.0 (0-0.7) k/uL Basophils # 0.0 (0-0.2) k/uL Manual Slide Review Performed RBC Morphology Normal PT 10.6 (9.0-12.0) sec INR 1.0 (<1.2) APTT 19.9 L (22.0-30.0) sec Sodium 130 L (137-145) mmol/L Potassium 4.5 (3.5-5.1) mmol/L Chloride 96 L (98-107) mmol/L Carbon Dioxide 25 (22-30) mmol/L Anion Gap 9 mmol/L BUN 25 H (7-17) mg/dL Creatinine 0.47 L (0.52-1.04) mg/dL Est GFR (CKD-EPI)AfAm >90 (>60 ml/min/1.73 sqM) Est GFR (CKD-EPI)NonAf >90 (>60 ml/min/1.73 sqM) Glucose 430 H (74-99) mg/dL Plasma Lactic Acid Bala (0.7-2.0) mmol/L Calcium 9.2 (8.4-10.2) mg/dL Total Bilirubin 1.0 (0.2-1.3) mg/dL AST 29 (14-36) U/L ALT 24 (4-34) U/L Alkaline Phosphatase 193 H (38-126) U/L Troponin I (0.000-0.034) ng/mL Total Protein 6.4 (6.3-8.2) g/dL Albumin 3.7 (3.5-5.0) g/dL Influenza Type A (PCR) (Not Detectd) Influenza Type B (PCR) (Not Detectd) RSV (PCR) (Not Detectd) SARS-CoV-2 (PCR) (Not Detectd) 10/17/22 10/17/22 10/17/22 Range/Units 10:37 10:37 11:59 WBC (3.8-10.6) k/uL RBC (3.80-5.40) m/uL Hgb (11.4-16.0) gm/dL Hct (34.0-46.0) % MCV (80.0-100.0) fL MCH (25.0-35.0) pg MCHC (31.0-37.0) g/dL RDW (11.5-15.5) % Plt Count (150-450) k/uL MPV Neutrophils % % Lymphocytes % % Monocytes % % Eosinophils % % Basophils % % Neutrophils # (1.3-7.7) k/uL Lymphocytes # (1.0-4.8) k/uL Monocytes # (0-1.0) k/uL Eosinophils # (0-0.7) k/uL Basophils # (0-0.2) k/uL Manual Slide Review RBC Morphology PT (9.0-12.0) sec INR (<1.2) APTT (22.0-30.0) sec Sodium (137-145) mmol/L Potassium (3.5-5.1) mmol/L Chloride (98-107) mmol/L Carbon Dioxide (22-30) mmol/L Anion Gap mmol/L BUN (7-17) mg/dL Creatinine (0.52-1.04) mg/dL Est GFR (CKD-EPI)AfAm (>60 ml/min/1.73 sqM) Est GFR (CKD-EPI)NonAf (>60 ml/min/1.73 sqM) Glucose (74-99) mg/dL Plasma Lactic Acid Bala 1.4 (0.7-2.0) mmol/L Calcium (8.4-10.2) mg/dL Total Bilirubin (0.2-1.3) mg/dL AST (14-36) U/L ALT (4-34) U/L Alkaline Phosphatase (38-126) U/L Troponin I <0.012 (0.000-0.034) ng/mL Total Protein (6.3-8.2) g/dL Albumin (3.5-5.0) g/dL Influenza Type A (PCR) Not Detected (Not Detectd) Influenza Type B (PCR) Not Detected (Not Detectd) RSV (PCR) Not Detected (Not Detectd) SARS-CoV-2 (PCR) Not Detected (Not Detectd) - Radiology Data Radiology results: report reviewed, image reviewed Disposition Clinical Impression: Hypoxemia, Pneumonia Disposition: ADMITTED IP TO THIS [facility] Condition: Stable Is patient prescribed a controlled substance at d/c from ED?: No Referrals: None,Stated [Primary Care Provider] - 1-2 days Time of Disposition: 13:20
[2022-10-17] MEDS ORDERED: IPRATROPIUM-ALBUTEROL 3 ML NEB INHALATION STA (13:05)
[2022-10-17] MEDS ORDERED: NALOXONE 0.4 MG/ML 1 ML VIAL IV PRN (13:20)
[2022-10-17] MEDS ORDERED: ACETAMINOPHEN TAB 325 MG TAB PO PRN ×2 (13:20→14:41)
[2022-10-17] MEDS ORDERED: LEVOFLOXACIN 500MG-D5W PMX 500 MG in DEXTROSE/WATER 1 100ML.BAG IVPB STA (13:22)
[2022-10-17] MEDS: SODIUM CHLORIDE 0.9% 1,000 ML IV SCH (13:26)
[2022-10-17] MEDS ORDERED: MELATONIN 5 MG TABLET PO PRN (14:41)
[2022-10-17] MEDS ORDERED: ALBUTEROL NEBULIZED 2.5 MG/3 ML INHALATION PRN (14:41)
[2022-10-17] MEDS ORDERED: ONDANSETRON 4 MG/2 ML VIAL IVP PRN (14:41)
--- NOTE | 2022-10-17 14:48 | P.CNPUL ---
History of Present Illness Consult date: 10/17/22 Reason for consult: dyspnea History of present illness: 61-year-old female who was seen in the emergency department on October 11. She came with complaints of shortness of breath, and chest pain. She apparently has a history of hypertension, and COPD from years of tobacco use. She's been smoking for more than 40 years. The patient has been on multiple rounds of antibiotics for "bronchitis". The patient does not currently see a lung doctor. She does not have a family doctor in this area she just recently moved back to this area. Anyway, in the emergency department, she was evaluated with a chest x-ray and a computed tomography scan which suggested infiltrate or mass in the right upper lobe. The computed tomography scan suggest a right perihilar mass, with obstruction of the right mainstem bronchus, and a postobstructive pneum onia. In addition, the patient has lesions in the liver suggestive of metastatic disease. The patient was in the hospital last week. The patient was seen by my partner. The patient underwent a bronchoscopy on 10/13/2022 and biopsies of the right upper lobe was done. Based on the CAT scan images, there is complete obstruction of the right upper lobe bronchus. Bronchus intermedius is quite narrowed and compromised because of the there is also lymphadenopathy as mentioned. The patient was discharged home to be readmitted today. The patient actually came to visit my partner in the office and she was reporting worsening shortness of breath and cough. No hemoptysis. Based on that, she was sent back to the emergency. Repeat chest x-ray was done and comparing it to the earlier chest x-ray, there is improvement in the infiltrative changes in the right upper lobe. There is some right hilar fullness. No other acute abnormalities. The patient denies having any calf pain or swelling. No hemoptysis. No pleurisy. No fever or chills. She was completing a course of prednisone burst taper and course of Augmentin that was given to her the time of discharge. Unfortunately, the biopsy results are not available yet from the right upper lobe. Review of Systems Constitutional: Reports fatigue, Reports weakness Eyes: denies as per HPI, denies blurred vision, denies bulging eye, denies decreased vision, denies diplopia, denies discharge, denies dry eye, denies irritation, denies itching, denies pain, denies photophobia, denies loss of peripheral vision, denies loss of vision, denies tunnel vision/blind spots Ears: deny: decreased hearing, ear discharge, earache, tinnitus Ears, nose, mouth and throat: Reports as per HPI Breasts: absent: as per HPI, change in shape, gynecomastia, masses, nipple discharge, pain, skin changes, swelling Cardiovascular: Reports decreased exercise tolerance, Reports dyspnea on exert ion, Reports shortness of breath Respiratory: Reports as per HPI Gastrointestinal: Reports as per HPI Genitourinary: Reports as per HPI Menstruation: Reports as per HPI Musculoskeletal: Reports as per HPI Musculoskeletal: absent: ankle pain, ankle stiffness, ankle swelling, as per HPI, elbow pain, elbow stiffness, elbow swelling, foot pain, foot stiffness, foot swelling, hand pain, hand stiffness, hand swelling, hip pain, hip stiffness, hip swelling, knee pain, knee stiffness, knee swelling, shoulder pain, shoulder stiffness, shoulder swelling, wrist pain, wrist stiffness, wrist swelling Integumentary: Reports as per HPI Neurological: Reports as per HPI Psychiatric: Reports as per HPI Endocrine: Reports as per HPI Hematologic/Lymphatic: Reports as per HPI Allergic/Immunologic: Reports as per HPI Past Medical History Past Medical History: Cancer, CVA/TIA, Diabetes Mellitus, Hyperlipidemia, Hypertension History of Any Multi-Drug Resistant Organisms: None Reported Past Surgical History: Appendectomy, Section, Cholecystectomy, Hysterectomy Additional Past Surgical History / Comment(s): colon resection Past Anesthesia/Blood Transfusion Reactions: No Reported Reaction Past Psychological History: Depression Smoking Status: Current every day smoker Past Alcohol Use History: None Reported Past Drug Use History: None Reported Medications and Allergies Home Medications Medication Instructions Recorded Confirmed Type Atorvastatin Calcium 40 mg PO HS 10/11/22 10/17/22 History Empagliflozin [Jardiance] 10 mg PO DAILY 10/11/22 10/17/22 History Metoprolol Tartrate [Lopressor] 25 mg PO DAILY 10/11/22 10/17/22 History Semaglutide [Ozempic] 0.5 mg SQ MO 10/11/22 10/17/22 History Sertraline [Zoloft] 100 mg PO BID 10/11/22 10/17/22 History ALPRAZolam [Xanax] 0.5 mg PO TID PRN #14 tab 10/13/22 10/17/22 Rx Albuterol Inhaler [Ventolin Hfa 2 puff INHALATION RT-Q6H PRN #60 10/13/22 10/17/22 Rx Inhaler] each Amoxic-Pot Clav 875-125Mg 1 tab PO BID 4 Days #8 tab 10/13/22 10/17/22 Rx [Augmentin 875-125] Budesonide-Formot 160-4.5 Mcg 2 puff INHALATION RT-BID 10/17/22 10/17/22 History [Symbicort 160-4.5 Mcg Inhaler] Nicotine 21Mg/24Hr Patch [Habitrol] 1 patch TRANSDERM DAILY 10/17/22 10/17/22 History Allergies Allergy/AdvReac Type Severity Reaction Status Date / Time bupropion [From Wellbutrin] Allergy Confusion Verified 10/17/22 11:07 codeine Allergy Nausea & Verified 10/17/22 11:07 Vomiting Sulfa (Sulfonamide Allergy Nausea & Verified 10/17/22 11:07 Antibiotics) Vomiting & Diarrhea Physical Exam Vitals: Vital Signs Temp Pulse Resp BP Pulse Ox 10/17/22 14:33 93 18 151/73 95 10/17/22 13:37 86 10/17/22 13:29 88 10/17/22 13:10 87 18 157/70 93 L 10/17/22 12:18 98.7 F 88 18 154/84 95 10/17/22 09:12 98.0 F 92 18 132/74 90 L Intake and Output 10/16/22 10/17/22 10/17/22 22:59 06:59 14:59 Other: Weight 80.286 kg GENERAL EXAM: Alert, very pleasant 61-year-old female patient, and 2 L nasal cannula, comfortable in no apparent distress. HEAD: Normocephalic. EYES: Normal reaction of pupils, equal size. NOSE: Clear with pink turbinates. THROAT: No erythema or exudates. NECK: No masses, no JVD. CHEST: No chest wall deformity. LUNGS: Equal air entry with scattered rhonchi, diminished breath sounds on the right. CVS: S1 and S2 normal with no audible murmur, regular rhythm. ABDOMEN: No hepatosplenomegaly, normal bowel sounds, no guarding or rigidity. SPINE: No scoliosis or deformity SKIN: No rashes CENTRAL NERVOUS SYSTEM: No focal deficits, tone is normal in all 4 extremities. EXTREMITIES: There is no peripheral edema. No clubbing, no cyanosis. Peripheral pulses are intact. Results - Laboratory Findings CBC and BMP: 10/17/22 10:37 10/17/22 10:37 ABG WBC 15.5 k/uL (3.8-10.6) H 10/17/22 10:37 RBC 5.13 m/uL (3.80-5.40) 10/17/22 10:37 Hgb 15.8 gm/dL (11.4-16.0) 10/17/22 10:37 Hct 47.2 % (34.0-46.0) H 10/17/22 10:37 MCV 92.0 fL (80.0-100.0) 10/17/22 10:37 MCH 30.7 pg (25.0-35.0) 10/17/22 10:37 MCHC 33.4 g/dL (31.0-37.0) 10/17/22 10:37 RDW 13.8 % (11.5-15.5) 10/17/22 10:37 Plt Count 119 k/uL (150-450) L 10/17/22 10:37 MPV 11.1 10/17/22 10:37 Neutrophils % 86 % 10/17/22 10:37 Lymphocytes % 7 % 10/17/22 10:37 Monocytes % 5 % 10/17/22 10:37 Eosinophils % 0 % 10/17/22 10:37 Basophils % 0 % 10/17/22 10:37 Neutrophils # 13.3 k/uL (1.3-7.7) H 10/17/22 10:37 Lymphocytes # 1.0 k/uL (1.0-4.8) 10/17/22 10:37 Monocytes # 0.7 k/uL (0-1.0) 10/17/22 10:37 Eosinophils # 0.0 k/uL (0-0.7) 10/17/22 10:37 Basophils # 0.0 k/uL (0-0.2) 10/17/22 10:37 Manual Slide Review Performed 10/17/22 10:37 RBC Morphology Normal 10/17/22 10:37 PT 10.6 sec (9.0-12.0) 10/17/22 10:37 INR 1.0 (<1.2) 10/17/22 10:37 APTT 19.9 sec (22.0-30.0) L 10/17/22 10:37 Sodium 130 mmol/L (137-145) L 10/17/22 10:37 Potassium 4.5 mmol/L (3.5-5.1) 10/17/22 10:37 Chloride 96 mmol/L (98-107) L 10/17/22 10:37 Carbon Dioxide 25 mmol/L (22-30) 10/17/22 10:37 Anion Gap 9 mmol/L 10/17/22 10:37 BUN 25 mg/dL (7-17) H 10/17/22 10:37 Creatinine 0.47 mg/dL (0.52-1.04) L 10/17/22 10:37 Est GFR (CKD-EPI)AfAm >90 (>60 ml/min/1.73 sqM) 10/17/22 10:37 Est GFR (CKD-EPI)NonAf >90 (>60 ml/min/1.73 sqM) 10/17/22 10:37 Glucose 430 mg/dL (74-99) H 10/17/22 10:37 Plasma Lactic Acid Bala 1.4 mmol/L (0.7-2.0) 10/17/22 10:37 Calcium 9.2 mg/dL (8.4-10.2) 10/17/22 10:37 Total Bilirubin 1.0 mg/dL (0.2-1.3) 10/17/22 10:37 AST 29 U/L (14-36) 10/17/22 10:37 ALT 24 U/L (4-34) 10/17/22 10:37 Alkaline Phosphatase 193 U/L (38-126) H 10/17/22 10:37 Troponin I <0.012 ng/mL (0.000-0.034) 10/17/22 10:37 Total Protein 6.4 g/dL (6.3-8.2) 10/17/22 10:37 Albumin 3.7 g/dL (3.5-5.0) 10/17/22 10:37 Influenza Type A (PCR) Not Detected (Not Detectd) 10/17/22 11:59 Influenza Type B (PCR) Not Detected (Not Detectd) 10/17/22 11:59 RSV (PCR) Not Detected (Not Detectd) 10/17/22 11:59 SARS-CoV-2 (PCR) Not Detected (Not Detectd) 10/17/22 11:59 PT/INR, D-dimer PT 10.6 sec (9.0-12.0) 10/17/22 10:37 INR 1.0 (<1.2) 10/17/22 10:37 Abnormal lab findings: Abnormal Labs 10/17/22 10/17/22 10/17/22 10:37 10:37 10:37 WBC 15.5 H Hct 47.2 H Plt Count 119 L Neutrophils # 13.3 H APTT 19.9 L Sodium 130 L Chloride 96 L BUN 25 H Creatinine 0.47 L Glucose 430 H Alkaline Phosphatase 193 H Assessment and Plan Plan: acute on chronic dyspnea, likely secondary to a component of COPD exacerbation. The patient has also background lung cancer with obstruction of the right upper lobe bronchus due to endobronchial tumor. The patient was discharged home recently on a course of Augmentin and prednisone burst taper. Acute COPD exacerbation, complicated by right hilar mass, and postobstructive pneumonia. 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 The eva villatoro did bronchoscopy with biopsies today 10/13/2022. There is noted endobronchial lesions in the right mainstem bronchus with near complete occlusion of the right upper and middle/lower lobes. Pathology pending.the patient is discharged home to be readmitted for worsening shortness of breath. Chest x-ray shows fullness in the right hilum. No clear indication for underlying pneumonia. In fact, the infant change in the right upper lobe have improved on today's chest x-ray. No worsening shortness of breath is likely related to COPD exacerbation. Rule out underlying pulmonary embolism especially the d-dimer comes back elevated. Ongoing tobacco use with nicotine addiction. History of diabetes mellitus. History of CVA. History of hypertension. History of hyperlipidemia. History of depression. Multiple previous surgeries including colon resection, appendectomy, section, cholecystectomy, and hysterectomy. Plan Admit the patient to the hospital and treated as a acute choked exacerbation. We will going to continue the course of Augmentin which is excellent for a postobstructive pneumonia. We'll check a pro-calcitonin level. We'll put the patient broke about it is and steroids. We'll check a d-dimer and if the level is elevated, she will deserve a CT angiogram to rule out pulmonary embolism. She is currently on 2 L of O2 nasal cannula. We'll consult hematology oncology. There is significant cardiac compromise of the airways on the right side and I'm concerned of progression or rapid progression causing further obstruction of the bronchus intermedius. Based on that, I'm going to consult hematology oncology and radiation oncology. Meanwhile, we are still awaiting the final pathology results from the biopsy done on 10/13/2022. Prognosis poor based above-mentioned comorbidities.
[2022-10-17] MEDS ORDERED: DEXTROSE 50% SYRINGE 50 ML IVP PRN ×2 (14:56)
--- NOTE | 2022-10-17 14:58 | P.HPIM ---
History of Present Illness H&P Date: 10/17/22 Chief Complaint: dyspnea Patient is a 61-year-old female with hypertension, dyslipidemia, and nicotine dependence the who was recently hospitalized here from 10/11/22 through 10/13/22 for primary lung malignancy with metastatic disease and postobstructive pneumonia, pathology currently pending from bronch on 10/13/22. Her to follow-up with Dr. Sandoval on 10/17/22 and he directed her to come to the emergency department. In the ER she underwent an extensive evaluation. On arrival her room air pulse ox is 90%, the remainder of her labs within normal limits. Initial laboratory analysis showed white blood cell count of 15.5, platelets 119, sodium 1:30, and glucose 430. Initial chest x-ray showed decreased appearance of the focal opacifications in the right upper lobe extending towards the hilum, bibasilar patchy increased airspace opacities concerning for pneu monia. In the ER she was given a dose of Levaquin and arrangements are made for admission. Patient had been taking Augmentin on an outpatient basis. Patient seen and examined at bedside. She reports that since discharge she has been getting more and more short of breath. She has been taking her augment and prednisone. She is down to one dose left of both. She reports worsning dyspnea and wheeze limiting her abaily to function. She is having a cough that is intermittently productvie but she feels that she cannot get all her phlegm up. She reports that she has been unable to sleep due to her cough. She is having decreaed appeittie, nausea, and feels weak overall. She feesl that she has been doping worse and worse at home. She coniotnues to have some subphrenic [ain and feels that she cannot get a good deep breath. She has no other complaints at this time. Pertinent positives and negatives as discussed in HPI, a complete review of systems was performed and all other systems are negative. Vital signs reviewed General: nontoxic, no distress, appears at stated age Derm: warm, dry Head: atraumatic, normocephalic, symmetric Eyes: EOMI, no lid lag, anicteric sclera, pupils equal round reactive to light ENT: Nose and ears atraumatic, no thrush, no pharyngeal erythema Neck: No thyromegaly, no cervical lymphadenopathy, trachea midline, supple Mouth: no lip lesion, mucus membranes dry Cardiovascular: S1S2 reg, no murmur, positive posterior tibial pulse bilateral, no edema, capillary refill less than 2 seconds Lungs: wheeze and ronchi bilateral, decreased chest wall excersion, no accessory muscle use Abdominal: soft, nontender to palpation, no guarding, no appreciable organome anna, normal bowel sounds Ext: no gross muscle atrophy, muscle strength equal bilateral, no contractures Neuro: CN II-XII grossly intact, finger to nose within normal limits, Psych: Alert, oriented, appropriate affect Assessment/Plan: Rencently discovered Pumonary mass with metatstaic lesions COPD , possible exacerabtion - start solumedrol, continue augmentin - bronchdialtors - pulm hygeine - check D-dimer if elevated check CTA chest to rule out pulmonary embolism, check procal to eval if conitnued infectious process - d/w Dr. Camarillo - awaiting pathology results from bronch on 10/13/22. - consult oncology - Pain control - RSV, COVID, Flu negative Hyponatremia, due to decreasd oral intake - IVF - Recheck in AM - if still unimproved will check urine sodium/osmol DM 2 with hyperglycemia - restart jardiance, SSI - Follow BS - hold ozempic - check A1C Recent tobacco abuse - resume nicotine patch HTN HLD CVA/TIA Subacute left rib fractures - home medications reviewed and resumed as indicated. The patient is admitted with an anticipated greater than 2 midnight stay for evaluation of shortness of rbeath . Surrogate decision-maker: CODE STATUS:full DVT prophylaxis: lovenox Discussed with: mireille hoffman Anticipated discharge date: pending clinical course Anticipated discharge place: pending clinical course A total of 65 minutes was spent on the care of this complex patient more than 50% of the time was spent in counseling and care coordination. Past Medical History Past Medical History: Cancer, COPD, CVA/TIA, Diabetes Mellitus, Hyperlipidemia, Hypertension History of Any Multi-Drug Resistant Organisms: None Reported Past Surgical History: Appendectomy, Section, Cholecystectomy, Hysterectomy Additional Past Surgical History / Comment(s): colon resection Past Anesthesia/Blood Transfusion Reactions: No Reported Reaction Past Psychological History: Depression Smoking Status: Current every day smoker Past Alcohol Use History: None Reported Past Drug Use History: None Reported Medications and Allergies Home Medications Medication Instructions Recorded Confirmed Type Atorvastatin Calcium 40 mg PO HS 10/11/22 10/17/22 History Empagliflozin [Jardiance] 10 mg PO DAILY 10/11/22 10/17/22 History Metoprolol Tartrate [Lopressor] 25 mg PO DAILY 10/11/22 10/17/22 History Semaglutide [Ozempic] 0.5 mg SQ MO 10/11/22 10/17/22 History Sertraline [Zoloft] 100 mg PO BID 10/11/22 10/17/22 History ALPRAZolam [Xanax] 0.5 mg PO TID PRN #14 tab 10/13/22 10/17/22 Rx Albuterol Inhaler [Ventolin Hfa 2 puff INHALATION RT-Q6H PRN #60 10/13/22 10/17/22 Rx Inhaler] each Amoxic-Pot Clav 875-125Mg 1 tab PO BID 4 Days #8 tab 10/13/22 10/17/22 Rx [Augmentin 875-125] Budesonide-Formot 160-4.5 Mcg 2 puff INHALATION RT-BID 10/17/22 10/17/22 History [Symbicort 160-4.5 Mcg Inhaler] Nicotine 21Mg/24Hr Patch [Habitrol] 1 patch TRANSDERM DAILY 10/17/22 10/17/22 History Allergies Allergy/AdvReac Type Severity Reaction Status Date / Time bupropion [From Wellbutrin] Allergy Confusion Verified 10/17/22 11:07 codeine Allergy Nausea & Verified 10/17/22 11:07 Vomiting Sulfa (Sulfonamide Allergy Nausea & Verified 10/17/22 11:07 Antibiotics) Vomiting & Diarrhea Physical Exam Osteopathic Statement: *. No significant issues noted on an osteopathic structural exam other than those noted in the History and Physical/Consult. Vitals: Vital Signs Temp Pulse Resp BP Pulse Ox 10/17/22 14:33 93 18 151/73 95 10/17/22 13:37 86 10/17/22 13:29 88 10/17/22 13:10 87 18 157/70 93 L 10/17/22 12:18 98.7 F 88 18 154/84 95 10/17/22 09:12 98.0 F 92 18 132/74 90 L Intake and Output 10/16/22 10/17/22 10/17/22 22:59 06:59 14:59 Other: Weight 80.286 kg Results CBC & Chem 7: 10/17/22 10:37 10/17/22 10:37 Labs: Abnormal Lab Results - Last 24 Hours (Table) 10/17/22 10/17/22 10/17/22 Range/Units 10:37 10:37 10:37 WBC 15.5 H (3.8-10.6) k/uL Hct 47.2 H (34.0-46.0) % Plt Count 119 L (150-450) k/uL Neutrophils # 13.3 H (1.3-7.7) k/uL APTT 19.9 L (22.0-30.0) sec Sodium 130 L (137-145) mmol/L Chloride 96 L (98-107) mmol/L BUN 25 H (7-17) mg/dL Creatinine 0.47 L (0.52-1.04) mg/dL Glucose 430 H (74-99) mg/dL Alkaline Phosphatase 193 H (38-126) U/L
[2022-10-17] MEDS: IPRATROPIUM-ALBUTEROL 3 ML NEB INHALATION SCH ×2 (15:25→20:21)
[2022-10-17] MEDS: methylPREDNISolone SOD SUCCI 125 MG/2 ML VIAL IV SCH ×2 (15:48→21:02)
--- NOTE | 2022-10-17 16:52 | CT ---
EXAMINATION TYPE: CT chest angio for PE CT DLP: 436.3 mGycm, Automated exposure control for dose reduction was used. DATE OF EXAM: 10/17/2022 4:15 PM COMPARISON: 10/11/2022. Anterior chest CLINICAL INDICATION:Female, 61 years old with history of dyspnea, cancer, possible PE; right lung can cer, dyspnea TECHNIQUE/CONTRAST: CTA scan of the thorax is performed with IV Contrast, patient injected with 100 cc mL of Isovue 370, pulmonary embolism protocol. MIP images are created and reviewed these are created on a separate wor kstation.. FINDINGS: Pulmonary Artery: There is no evidence for a filling defect within the pulmonary vasculature to sugge st acute pulmonary embolism. The pulmonary artery is of normal size. Lungs/Pleura: New groundglass opacities are seen throughout the lungs. No evidence of pneumothorax or pleural effusion. Right upper lobe masslike consolidation with postobstructive consolidation has imp roved slightly in today's exam. There is multiple masslike abnormalities extending away from the pul monary hilum Airway: Similar right perihilar mass which narrows the right bronchus at least 75% in the right upper lobe lobar bronchus 100% series 411 image 53 results in obstructive consolidation of the right upper lobe. Heart: Heart is within normal limits for size. Vasculature: No evidence of aortic aneurysm. Mediastinum: Lymphadenopathy throughout the mediastinum including right superior paratracheal measuri ng up to 12 mm in short axis, right low paratracheal measuring up to 20 mm in short axis. Subcarinal lymphadenopathy measuring up to 3.8 x 2.1 cm. Right hilum lymph nodes Musculoskeletal: There is a subacute fracture of left rib 7 posteriorly laterally. Soft Tissues: Unremarkable. Lower neck: No significant findings. Upper Abdomen: Right adrenal gland is partially not definitively visualized there is ae mass which is cystic attenuation measuring 6.6 x 5.8 x 6.9 cm it appears separate from the right kidney. There is multiple hypodensities within the liver the largest in the right lobe measuring up to 3.0 cm and in t he left hepatic lobe measuring 1.4 cm. The gallbladder surgically absent. There is a splenule. IMPRESSION: 1. New from 10/11/2022 scattered groundglass opacities, correlate for atypical pneumonia. 2. Improved aeration with decrease in right upper lobe consolidation changes representing postobstru ctive atelectasis on prior. 3. Similar right pulmonary hilum/right upper lobe mass with mediastinal lymphadenopathy concerning f or primary malignancy with metastatic disease. Mass narrows the airways on the right which correlates with consolidation changes seen on radiograph. 4. Similar right adrenal fossa cystic lesion which is indeterminate and felt to be separate from the right kidney. 5. Similar numerous liver hypodensities concerning for metastatic disease. 6. No evidence of pulmonary embolism. 7. Subacute left posterior rib 7 fracture
[2022-10-17 17:12] LABS: Glucose,Whole Blood 335 mg/dL (70-110)
[2022-10-17] MEDS: INSULIN ASPART (NovoLOG) 100 UNIT/ML VIAL SQ SCH ×2 (18:03→20:44)
[2022-10-17 20:13] LABS: Glucose,Whole Blood 321 mg/dL (70-110)
[2022-10-17] MEDS: SYMBICORT 160-4.5 MCG INHALER INHALATION SCH (20:21)
[2022-10-17] MEDS: SERTRALINE 100 MG TAB PO SCH (20:44)
[2022-10-17] MEDS: ATORVASTATIN 40 MG TAB PO SCH (20:44)
[2022-10-17] MEDS: INSULIN DETEMIR (LEVEMIR) 100 UNIT/ML SYR SQ SCH (20:44)
[2022-10-17] MEDS: AMOXIC-POT CLAV 875-125MG 1 EACH TAB PO SCH (20:44)
[2022-10-18] MEDS: SODIUM CHLORIDE 0.9% 1,000 ML IV SCH ×2 (03:11→16:50)
[2022-10-18] MEDS: methylPREDNISolone SOD SUCCI 125 MG/2 ML VIAL IV SCH ×4 (03:11→21:15)
[2022-10-18 05:08] LABS: HCT 44.5 % (34.0-46.0); HGB 14.8 gm/dL (11.4-16.0); MCHC 33.2 g/dL (31.0-37.0); MCV 90.5 fL (80.0-100.0); Platelet Count 134 k/uL (150-450); RBC 4.92 m/uL (3.80-5.40); RDW 13.2 % (11.5-15.5); WBC 15.7 k/uL (3.8-10.6)
[2022-10-18 05:39] LABS: African American GFR (CKD) >90 (>60 ml/min/1.73 sqM); Anion Gap 6 mmol/L; Blood Urea Nitrogen 18 mg/dL (7-17); Carbon Dioxide 26 mmol/L (22-30); Chloride 101 mmol/L (98-107); Glucose 266 mg/dL (74-99); Non-African American GFR(CKD) >90 (>60 ml/min/1.73 sqM); Potassium 4.5 mmol/L (3.5-5.1); Sodium 133 mmol/L (137-145)
[2022-10-18 05:40] LABS: ALT 22 U/L (4-34); AST 26 U/L (14-36); Albumin 3.4 g/dL (3.5-5.0); Albumin/Globulin Ratio 1.3; Alkaline Phosphatase 168 U/L (38-126); Calcium 8.4 mg/dL (8.4-10.2); Globulin 2.6 g/dL; Magnesium 1.9 mg/dL (1.6-2.3); Phosphorus 3.9 mg/dL (2.5-4.5); Total Bilirubin 0.8 mg/dL (0.2-1.3)
[2022-10-18 07:02] LABS: Glucose,Whole Blood 251 mg/dL (70-110)
[2022-10-18] MEDS: INSULIN ASPART (NovoLOG) 100 UNIT/ML VIAL SQ SCH ×4 (08:39→21:15)
[2022-10-18] MEDS: NICOTINE 21MG/24HR PATCH TRANSDERM SCH (08:40)
[2022-10-18] MEDS: AMOXIC-POT CLAV 875-125MG 1 EACH TAB PO SCH ×2 (08:41→21:14)
[2022-10-18] MEDS: SERTRALINE 100 MG TAB PO SCH ×2 (08:42→21:14)
[2022-10-18] MEDS: METOPROLOL TARTRATE 25 MG TAB PO SCH (08:42)
[2022-10-18] MEDS: DAPAGLIFLOZIN PROPANEDIOL 5 MG TABLET PO SCH (08:42)
[2022-10-18] MEDS: IPRATROPIUM-ALBUTEROL 3 ML NEB INHALATION SCH ×4 (08:51→20:33)
[2022-10-18] MEDS: SYMBICORT 160-4.5 MCG INHALER INHALATION SCH ×2 (08:51→20:33)
[2022-10-18] MEDS: ALPRAZolam 0.5 MG TAB PO PRN (08:52)
[2022-10-18] MEDS: INSULIN DETEMIR (LEVEMIR) 100 UNIT/ML SYR SQ SCH ×2 (08:53→21:14)
[2022-10-18] MEDS ORDERED: NICOTINE 21MG/24HR PATCH TRANSDERM SCH (09:00)
[2022-10-18 11:05] LABS: Glucose,Whole Blood 206 mg/dL (70-110)
[2022-10-18] MEDS: MORPHINE SULFATE 2 MG/ML SYRINGE IVP PRN ×2 (13:30→21:41)
--- NOTE | 2022-10-18 14:31 | P.PN ---
Subjective Progress Note Date: 10/18/22 Patient seen and examined at bedside. Patient continues to have shortness of breath with expiratory wheezing. Patient is concerned that her breathing has not greatly improved since admission. Patient was informed that she is immunocompromised due to the lung mass with superimposed pneumonia and COPD. Patient denies fevers or chills. Objective - Vital Signs Vital signs: Vital Signs Temp 98.3 F 10/18/22 12:17 Pulse 88 10/18/22 12:17 Resp 17 10/18/22 12:17 BP 147/65 10/18/22 12:17 Pulse Ox 94 L 10/18/22 12:17 FiO2 Intake & Output 10/17/22 10/18/22 10/18/22 18:59 06:59 18:59 Intake Total 900 Balance 900 Weight 80.286 kg Intake: Intake, IV Titration 900 Amount Sodium Chloride 0.9% 1, 900 000 ml @ 75 mls/hr IV . [id number] [facility] Rx#:[id number] Other: Voiding Method Bedside Commode Bedside Commode # Voids 1 1 - Exam General: [non toxic], [no distress], [appears at stated age] Derm: [warm], [dry] Head: [atraumatic], [normocephalic], [symmetric] Eyes: [EOMI], [no lid lag], [anicteric sclera] Mouth: [no lip lesion], [mucus membranes moist] Cardiovascular: [S1S2 reg], [no murmur], [positive posterior tibial pulse bilateral], Lungs: [Bilateral expiratory wheezing] , [no accessory muscle use] Abdominal: [soft], [ nontender to palpation], [no guarding], [no appreciable or ganomegaly] Ext: [no gross muscle atrophy], [no edema], [no contractures] Neuro: [ CN II-XI grossly intact], [no focal neuro deficits] Psych: [Alert], [oriented], [anxious] - Labs CBC & Chem 7: 10/18/22 04:37 10/18/22 04:37 Labs: Abnormal Lab Results - Last 24 Hours (Table) 10/17/22 10/17/22 10/17/22 Range/Units 14:44 14:44 17:10 WBC (3.8-10.6) k/uL Plt Count (150-450) k/uL D-Dimer 1.89 H (<0.60) mg/L FEU Sodium (137-145) mmol/L BUN (7-17) mg/dL Creatinine (0.52-1.04) mg/dL Glucose (74-99) mg/dL POC Glucose (mg/dL) 335 H (70-110) mg/dL Alkaline Phosphatase (38-126) U/L Total Protein (6.3-8.2) g/dL Albumin (3.5-5.0) g/dL Procalcitonin 0.18 H (0.02-0.09) ng/mL 10/17/22 10/18/22 10/18/22 Range/Units 20:10 04:37 04:37 WBC 15.7 H (3.8-10.6) k/uL Plt Count 134 L (150-450) k/uL D-Dimer (<0.60) mg/L FEU Sodium 133 L (137-145) mmol/L BUN 18 H (7-17) mg/dL Creatinine 0.41 L (0.52-1.04) mg/dL Glucose 266 H (74-99) mg/dL POC Glucose (mg/dL) 321 H (70-110) mg/dL Alkaline Phosphatase 168 H (38-126) U/L Total Protein 6.0 L (6.3-8.2) g/dL Albumin 3.4 L (3.5-5.0) g/dL Procalcitonin (0.02-0.09) ng/mL 10/18/22 10/18/22 Range/Units 07:01 11:04 WBC (3.8-10.6) k/uL Plt Count (150-450) k/uL D-Dimer (<0.60) mg/L FEU Sodium (137-145) mmol/L BUN (7-17) mg/dL Creatinine (0.52-1.04) mg/dL Glucose (74-99) mg/dL POC Glucose (mg/dL) 251 H 206 H (70-110) mg/dL Alkaline Phosphatase (38-126) U/L Total Protein (6.3-8.2) g/dL Albumin (3.5-5.0) g/dL Procalcitonin (0.02-0.09) ng/mL - Last 24 Hours (Table) 10/17/22 10:37 Blood Culture - Preliminary Blood No Growth after 24 hours 10/17/22 10:20 Blood Culture - Preliminary Blood No Growth after 24 hours Assessment and Plan Assessment: COPD with acute exacerabtion due to pneumonia with rencently discovered Pumonary mass and metatstaic lesions - start solumedrol, continue augmentin - bronchdialtors - pulm hygeine - check D-dimer if elevated check CTA chest to rule out pulmonary embolism, chec k procal to eval if conitnued infectious process - Pulmonary Dr. Camarillo following - awaiting pathology results from bronch on 10/13/22. - consulted oncology - Pain control - RSV, COVID, Flu negative Hyponatremia, due to decreasd oral intake improving - IVF - Recheck in AM DM 2 with hyperglycemia uncontrolled Add Levemir 5 units subcu every morning Continue Levemir 20 units subcu daily at bedtime - restart jardiance, SSI - Follow BS - hold ozempic - check A1C 8.2% on 10/11/2022 Recent tobacco abuse - resume nicotine patch HTN HLD CVA/TIA Subacute left rib fractures - home medications reviewed and resumed as indicated. The patient is admitted with an anticipated greater than 2 midnight stay . Surrogate decision-maker: CODE STATUS:full DVT prophylaxis: lovenox Anticipated discharge date: pending clinical course Anticipated discharge place: pending clinical course .
--- NOTE | 2022-10-18 16:46 | P.PN ---
Subjective Progress Note Date: 10/18/22 On today's evaluation of 10/18/2022, the patient is being seen for a follow-up. She is feeling slightly better compared to yesterday. A repeat computed tomography scan of the chest was done and showed no evidence of any pulmonary embolism. Note that the CAT scan showed new ground glass opacities bilaterally consistent with a pneumonia which could be potentially an atypical pneumonia. At the same time, there was some improvement in aeration of the right upper lobe consolidation and there is some post obstructive changes in the right upper lobe still. There is also similar right pulmonary hilar and right upper lobe mass and mediastinal lymphadenopathy. There is significant narrowing of the right upper lobe bronchus and the right mainstem bronchus. The diagnosis consistent with small cell lung cancer. There is also fungal element it was noted within the biopsy which is obviously raises the concern for an ongoing fungal infection in combination with underlying malignancy. The patient is showing a white cell count of 15.7 with hemoglobin 14.8. Sodium is at 133, BUN is at 80 with a cre atinine of 0.4. Pro-calcitonin level was at 0.18. The viruses and the viral screen was negative. Objective - Vital Signs Vital signs: Vital Signs Temp 98.3 F 10/18/22 12:17 Pulse 90 10/18/22 16:10 Resp 17 10/18/22 12:17 BP 147/65 10/18/22 12:17 Pulse Ox 94 L 10/18/22 12:17 FiO2 Intake & Output 10/17/22 10/18/22 10/18/22 18:59 06:59 18:59 Intake Total 900 Balance 900 Weight 80.286 kg Intake: Intake, IV Titration 900 Amount Sodium Chloride 0.9% 1, 900 000 ml @ 75 mls/hr IV . [id number] [facility] Rx#:[id number] Other: Voiding Method Bedside Commode Bedside Commode # Voids 1 1 2 - Exam GENERAL EXAM: Alert, very pleasant 61-year-old female patient, and 2 L nasal cannula, comfortable in no apparent distress. HEAD: Normocephalic. EYES: Normal reaction of pupils, equal size. NOSE: Clear with pink turbinates. THROAT: No erythema or exudates. NECK: No masses, no JVD. CHEST: No chest wall deformity. LUNGS: Equal air entry with scattered rhonchi, diminished breath sounds on the right. CVS: S1 and S2 normal with no audible murmur, regular rhythm. ABDOMEN: No hepatosplenomegaly, normal bowel sounds, no guarding or rigidity. SPINE: No scoliosis or deformity SKIN: No rashes CENTRAL NERVOUS SYSTEM: No focal deficits, tone is normal in all 4 extremities. EXTREMITIES: There is no peripheral edema. No clubbing, no cyanosis. Peripheral pulses are intact. - Labs CBC & Chem 7: 10/18/22 04:37 10/18/22 04:37 Labs: Abnormal Lab Results - Last 24 Hours (Table) 10/17/22 10/17/22 10/17/22 Range/Units 14:44 17:10 20:10 WBC (3.8-10.6) k/uL Plt Count (150-450) k/uL Sodium (137-145) mmol/L BUN (7-17) mg/dL Creatinine (0.52-1.04) mg/dL Glucose (74-99) mg/dL POC Glucose (mg/dL) 335 H 321 H (70-110) mg/dL Alkaline Phosphatase (38-126) U/L Total Protein (6.3-8.2) g/dL Albumin (3.5-5.0) g/dL Procalcitonin 0.18 H (0.02-0.09) ng/mL 10/18/22 10/18/22 10/18/22 Range/Units 04:37 04:37 07:01 WBC 15.7 H (3.8-10.6) k/uL Plt Count 134 L (150-450) k/uL Sodium 133 L (137-145) mmol/L BUN 18 H (7-17) mg/dL Creatinine 0.41 L (0.52-1.04) mg/dL Glucose 266 H (74-99) mg/dL POC Glucose (mg/dL) 251 H (70-110) mg/dL Alkaline Phosphatase 168 H (38-126) U/L Total Protein 6.0 L (6.3-8.2) g/dL Albumin 3.4 L (3.5-5.0) g/dL Procalcitonin (0.02-0.09) ng/mL 10/18/22 Range/Units 11:04 WBC (3.8-10.6) k/uL Plt Count (150-450) k/uL Sodium (137-145) mmol/L BUN (7-17) mg/dL Creatinine (0.52-1.04) mg/dL Glucose (74-99) mg/dL POC Glucose (mg/dL) 206 H (70-110) mg/dL Alkaline Phosphatase (38-126) U/L Total Protein (6.3-8.2) g/dL Albumin (3.5-5.0) g/dL Procalcitonin (0.02-0.09) ng/mL Microbiology - Last 24 Hours (Table) 10/17/22 10:37 Blood Culture - Preliminary Blood No Growth after 24 hours 10/17/22 10:20 Blood Culture - Preliminary Blood No Growth after 24 hours Assessment and Plan Plan: acute on chronic dyspnea, likely secondary to a component of COPD exacerbation. The patient has also background lung cancer with obstruction of the right upper lobe bronchus due to endobronchial tumor. The patient was discharged home recently on a course of Augmentin and prednisone burst taper.there is development of acute bilateral valgue pulmonary infiltrates Consider atypical pneumonia. Consider fungal pneumonia especially the patient's biopsy showed fungal elements in combination with tumor metastatic small cell lung cancer Acute COPD exacerbation, complicated by right hilar mass, and postobstructive pneumonia. consider superinfection with various agents including atypical bacterial versus fungi. Ongoing tobacco use with nicotine addiction. History of diabetes mellitus. History of CVA. History of hypertension. History of hyperlipidemia. History of depression. Multiple previous surgeries including colon resection, appendectomy, section, cholecystectomy, and hysterectomy. Plan Complete MRI of the brain Check Aspergillus and histoplasma antibodies Consider starting the patient voriconazole Check Legionella urine antigen Continue Augmentin and add Levaquin Consults infectious disease Prognosis poor based above-mentioned comorbidities.
[2022-10-18 17:03] LABS: Glucose,Whole Blood 245 mg/dL (70-110)
[2022-10-18] MEDS: LEVOFLOXACIN 750MG-D5W PMX 750 MG in DEXTROSE/WATER 1 150ML.BAG IVPB SCH (18:07)
--- NOTE | 2022-10-18 19:23 | P.CONS ---
History of Present Illness - Reason for Consult Consult date: 10/18/22 metastatic cancer Requesting physician: Abbie García - Chief Complaint SOB - History of Present Illness Patient is a 61-year-old female with PMH HTN, dyslipidemia, nicotine dependence, and most recently diagnosed with small cell carcinoma of the lung. She was hospitalized here from 10/11/22 through 10/13/22 for postobstructive pneumonia. She had a follow-up with Dr. Sandoval on 10/17/22 and he directed her to come to the emergency department for further due to SOB and hypoxia. Pulse ox was 90% upon arrival to the ER. Initial laboratory analysis showed white blood cell count of 15.5, hemoglobin and platelets 119. Chest x-ray showed decreased appearance of the focal opacifications in the right upper lobe extending towards the hilum, bibasilar patchy increased airspace opacities concerning for pneumonia. In the ER she was given a dose of Levaquin. Patient had been taking Augmentin since discharge. Patient reports that since discharge she has been having increased SOB, worsening on exertion, dry cough and generalized weakness. Denies fevers, chills, hemoptysis. Below is consult from 6 days ago Patient states that she was in her usual state of health, when she developed coughing with wheezing and some shortness of breath on exertion, about 6 weeks ago. The patient had about 3 courses of outpatient antibiotics, with only or should intermittently be followed by recurrence. She therefore came into the emergency room, where chest x-ray showed right upper lobe masslike opacity. Patient's EKG showed some left atrial enlargement. CTA of the chest showed right upper lobe hilar mass, causing obstruction, along with mediastinal adenopathy, multiple hypodensities in the liver, largest 3 cm, as well as a 6.9 cm cystic appearing mass involving the right adrenal. She denied any prior history of malignancy, no weight loss, reported normal performance status prior to about 6 weeks ago. Bronoscopy/biopsy on 10/13/22, confirmed small cell carcinoma. Review of Systems 10 point ROS negative except as stated in HPI. Past Medical History Past Medical History: Cancer, COPD, CVA/TIA, Diabetes Mellitus, Hyperlipidemia, Hypertension History of Any Multi-Drug Resistant Organisms: None Reported Past Surgical History: Appendectomy, Section, Cholecystectomy, Hysterectomy Additional Past Surgical History / Comment(s): colon resection Past Anesthesia/Blood Transfusion Reactions: No Reported Reaction Past Psychological History: Depression Smoking Status: Former smoker Past Alcohol Use History: None Reported Past Drug Use History: None Reported - Past Family History Father Family Medical History: Unable to Obtain Medications and Allergies Home Medications Medication Instructions Recorded Confirmed Type Atorvastatin Calcium 40 mg PO HS 10/11/22 10/17/22 History Empagliflozin [Jardiance] 10 mg PO DAILY 10/11/22 10/17/22 History Metoprolol Tartrate [Lopressor] 25 mg PO DAILY 10/11/22 10/17/22 History Semaglutide [Ozempic] 0.5 mg SQ MO 10/11/22 10/17/22 History Sertraline [Zoloft] 100 mg PO BID 10/11/22 10/17/22 History ALPRAZolam [Xanax] 0.5 mg PO TID PRN #14 tab 10/13/22 10/17/22 Rx Albuterol Inhaler [Ventolin Hfa 2 puff INHALATION RT-Q6H PRN #60 10/13/22 10/17/22 Rx Inhaler] each Amoxic-Pot Clav 875-125Mg 1 tab PO BID 4 Days #8 tab 10/13/22 10/17/22 Rx [Augmentin 875-125] Budesonide-Formot 160-4.5 Mcg 2 puff INHALATION RT-BID 10/17/22 10/17/22 History [Symbicort 160-4.5 Mcg Inhaler] Nicotine 21Mg/24Hr Patch [Habitrol] 1 patch TRANSDERM DAILY 10/17/22 10/17/22 History Allergies Allergy/AdvReac Type Severity Reaction Status Date / Time bupropion [From Wellbutrin] Allergy Confusion Verified 10/17/22 11:07 codeine Allergy Nausea & Verified 10/17/22 11:07 Vomiting Sulfa (Sulfonamide Allergy Nausea & Verified 10/17/22 11:07 Antibiotics) Vomiting & Diarrhea Physical Exam Vitals: Vital Signs Temp Pulse Pulse Resp BP Pulse Ox 10/18/22 16:10 90 10/18/22 16:00 90 10/18/22 12:17 98.3 F 88 17 147/65 94 L 10/18/22 11:56 88 10/18/22 11:46 88 10/18/22 09:02 90 10/18/22 08:52 90 10/18/22 07:00 98.1 F 75 16 174/81 94 L 10/18/22 01:12 98.7 F 89 16 164/71 96 10/17/22 20:33 92 10/17/22 20:22 88 10/17/22 20:10 14 10/17/22 18:53 98.9 F 99 14 133/60 95 Intake and Output 10/18/22 10/18/22 10/18/22 06:59 14:59 22:59 Intake Total 900 Balance 900 Intake: Intake, IV Titration 900 Amount Sodium Chloride 0.9% 1, 900 000 ml @ 75 mls/hr IV . [id number] COUNT INCLUDES THE [facility] Rx#:[id number] Other: Voiding Method Bedside Commode # Voids 1 2 - Constitutional General appearance: average body habitus, no acute distress - EENT Eyes: anicteric sclerae, EOMI ENT: hearing grossly normal - Respiratory mild respiratory distress Respiratory: left: diminished, bilateral: wheezing - Cardiovascular Rhythm: regular Heart sounds: normal: S1, S2 Abnormal Heart Sounds: no systolic murmur, no diastolic murmur, no rub, no S3 Gallop, no S4 Gallop, no click, no other - Integumentary Integumentary: normal - Neurologic grossly intact Neurologic: CNII-XII intact - Musculoskeletal Musculoskeletal: strength equal bilaterally - Psychiatric Psychiatric: A&O x's 3, appropriate affect, intact judgment & insight Results CBC & Chem 7: 10/18/22 04:37 10/18/22 04:37 Labs: Abnormal Lab Results - Last 24 Hours (Table) 10/17/22 10/17/22 10/18/22 Range/Units 14:44 20:10 04:37 WBC 15.7 H (3.8-10.6) k/uL Plt Count 134 L (150-450) k/uL Sodium (137-145) mmol/L BUN (7-17) mg/dL Creatinine (0.52-1.04) mg/dL Glucose (74-99) mg/dL POC Glucose (mg/dL) 321 H (70-110) mg/dL Alkaline Phosphatase (38-126) U/L Total Protein (6.3-8.2) g/dL Albumin (3.5-5.0) g/dL Procalcitonin 0.18 H (0.02-0.09) ng/mL 10/18/22 10/18/22 10/18/22 Range/Units 04:37 07:01 11:04 WBC (3.8-10.6) k/uL Plt Count (150-450) k/uL Sodium 133 L (137-145) mmol/L BUN 18 H (7-17) mg/dL Creatinine 0.41 L (0.52-1.04) mg/dL Glucose 266 H (74-99) mg/dL POC Glucose (mg/dL) 251 H 206 H (70-110) mg/dL Alkaline Phosphatase 168 H (38-126) U/L Total Protein 6.0 L (6.3-8.2) g/dL Albumin 3.4 L (3.5-5.0) g/dL Procalcitonin (0.02-0.09) ng/mL 10/18/22 Range/Units 17:01 WBC (3.8-10.6) k/uL Plt Count (150-450) k/uL Sodium (137-145) mmol/L BUN (7-17) mg/dL Creatinine (0.52-1.04) mg/dL Glucose (74-99) mg/dL POC Glucose (mg/dL) 245 H (70-110) mg/dL Alkaline Phosphatase (38-126) U/L Total Protein (6.3-8.2) g/dL Albumin (3.5-5.0) g/dL Procalcitonin (0.02-0.09) ng/mL Microbiology - Last 24 Hours (Table) 10/17/22 10:37 Blood Culture - Preliminary Blood No Growth after 24 hours 10/17/22 10:20 Blood Culture - Preliminary Blood No Growth after 24 hours Chest x-ray: report reviewed CT scan - chest: report reviewed Assessment and Plan (1) Small cell carcinoma Current Visit: Yes Status: Acute Priority: High Code(s): C80.1 - MALIGNANT (PRIMARY) NEOPLASM, UNSPECIFIED SNOMED Code(s): [id number] Plan: Pt back in hospital due to respiratory symptoms Small cell carcinoma: -Bronchoscopy/biopsy resulted-small cell carcinoma. Dr. Bruno reviewed diagnosis, prognosis, treatment options, life expectancy with and with out treatment. All pt questions were answered to her satisfaction. -Pt has not been able to remain out pt long enough to be seen or complete staging scans -MRI brain and NM bone scan ordered to complete staging work up -Case was reviewed with Pulmonary. Wanted to know if pt SOB suspected to be more r/t cancer or infection. Likely a degree of both but, risk vs benefit, going to plan for chemo and Pulm will provide recommendations for treatment of any suspected pulm infections. For now recommending abx and antifungal, which is ordered. -Will have 1st cycle of [employer] treatment inpatient. Pt agreeable to start. Attests: I have seen and examined pt, performed H&P, developed impression and plan of care. Discussed with dictator. Agree with dictation, documented as a scribe. Time with Patient: Greater than 30
[2022-10-18 20:23] LABS: Glucose,Whole Blood 358 mg/dL (70-110)
[2022-10-18] MEDS: ATORVASTATIN 40 MG TAB PO SCH (21:14)
[2022-10-18] MEDS: VORICONAZOLE 200 MG in SODIUM CHLORIDE 0.9% 100 ML IVPB SCH (21:26)
[2022-10-19] MEDS: HYDROcodone/APAP 5-325MG 1 EACH TAB PO PRN ×3 (00:13→15:52)
[2022-10-19] MEDS: ALPRAZolam 0.5 MG TAB PO PRN ×2 (00:15→15:52)
[2022-10-19] MEDS: MORPHINE SULFATE 2 MG/ML SYRINGE IVP PRN ×3 (01:59→13:29)
[2022-10-19] MEDS: methylPREDNISolone SOD SUCCI 125 MG/2 ML VIAL IV SCH ×2 (03:38→10:27)
[2022-10-19] MEDS: SODIUM CHLORIDE 0.9% 1,000 ML IV SCH ×2 (06:34→20:50)
[2022-10-19 06:56] LABS: Basophils % (A) 0 %; Eosinophils % (A) 0 %; HCT 43.6 % (34.0-46.0); HGB 14.6 gm/dL (11.4-16.0); Lymphocytes # (A) 1.1 k/uL (1.0-4.8); Lymphocytes % (A) 7 %; MCHC 33.5 g/dL (31.0-37.0); MCV 92.7 fL (80.0-100.0); Mean Platelet Volume 10.9; Monocytes # (A) 0.6 k/uL (0-1.0); Monocytes % (A) 4 %; Neutrophils # (A) 14.4 k/uL (1.3-7.7); Neutrophils % (A) 88 %; Platelet Count 139 k/uL (150-450); RDW 13.7 % (11.5-15.5); WBC 16.4 k/uL (3.8-10.6)
[2022-10-19 07:04] LABS: Potassium 4.4 mmol/L (3.5-5.1)
[2022-10-19 07:05] LABS: ALT 23 U/L (4-34); AST 26 U/L (14-36); African American GFR (CKD) >90 (>60 ml/min/1.73 sqM); Albumin 3.3 g/dL (3.5-5.0); Albumin/Globulin Ratio 1.3; Alkaline Phosphatase 157 U/L (38-126); Anion Gap 6 mmol/L; Blood Urea Nitrogen 20 mg/dL (7-17); Calcium 8.3 mg/dL (8.4-10.2); Carbon Dioxide 26 mmol/L (22-30); Chloride 100 mmol/L (98-107); Globulin 2.5 g/dL; Glucose 229 mg/dL (74-99); Non-African American GFR(CKD) >90 (>60 ml/min/1.73 sqM); Sodium 132 mmol/L (137-145); Total Bilirubin 0.7 mg/dL (0.2-1.3); Total Protein 5.8 g/dL (6.3-8.2)
[2022-10-19 07:10] LABS: Glucose,Whole Blood 210 mg/dL (70-110)
[2022-10-19] MEDS: IPRATROPIUM-ALBUTEROL 3 ML NEB INHALATION SCH ×4 (07:19→20:59)
[2022-10-19] MEDS: SYMBICORT 160-4.5 MCG INHALER INHALATION SCH ×2 (07:19→20:59)
[2022-10-19] MEDS: INSULIN DETEMIR (LEVEMIR) 100 UNIT/ML SYR SQ SCH ×2 (07:38→20:49)
--- NOTE | 2022-10-19 08:08 | P.CONS ---
History of Present Illness - Reason for Consult Consult date: 10/18/22 Pneumonia Requesting physician: Lázaro Camarillo - Chief Complaint cough and shortness of breath x weeks - History of Present Illness Patient is a 61-year female with a past medical history significant for hypertension COPD and did have a [id number] of smoking patient mention she has been dealing with the bronchitis for the last few weeks to months and has completed 4 different rounds of oral antibiotics patient not sure about the name of those antibiotics patient was recently admitted at this facility on October 11, 2022 and the patient did have x-ray and CT scan that was suggestive of infiltrate or mass in the right upper lobe CT of the chest did confirm her right perihilar mass with obstruction of the right mainstem bronchus and postobstructive pneumonia patient also have a lesion in the liver suggestive of metastatic disease patient did have a bronchoscopy on 10/13/2022 which did shows atypical cells consistent with small cell carcinoma patient did have a 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 and the patient complaining of increasing shortness of b reath and cough no hemoptysis for the patient was advised to go back to the hospital on presentation to the hospital the patient was afebrile and no fever has been recorded subsequently patient did have elevated white count of 15.5 with a left shift BUN and creatinine has been normal liver enzymes are normal procalcitonin 0.18 patient did have a negative influenza RSV and COVID PCR patient did have a CT angiogram of the chest that was negative for PE did show scattered groundglass opacity correlate for atypical pneumonia similar right pulmonary hilum right upper lobe most with mediastinal lymphadenopathy and subacute left posterior rib 7 fracture patient is currently being treated with the Augmentin Levaquin infectious disease was consulted for further management of antibiotic therapy concern for possible atypical pneumonia Review of Systems Positive point has been mentioned in the HPI rest of the systems are negative Past Medical History Past Medical History: Cancer, COPD, CVA/TIA, Diabetes Mellitus, Hyperlipidemia, Hypertension History of Any Multi-Drug Resistant Organisms: None Reported Past Surgical History: Appendectomy, Section, Cholecystectomy, H ysterectomy Additional Past Surgical History / Comment(s): colon resection Past Anesthesia/Blood Transfusion Reactions: No Reported Reaction Past Psychological History: Depression Smoking Status: Former smoker Past Alcohol Use History: None Reported Past Drug Use History: None Reported - Past Family History Father Family Medical History: Unable to Obtain Medications and Allergies Home Medications Medication Instructions Recorded Confirmed Type Atorvastatin Calcium 40 mg PO HS 10/11/22 10/17/22 History Empagliflozin [Jardiance] 10 mg PO DAILY 10/11/22 10/17/22 History Metoprolol Tartrate [Lopressor] 25 mg PO DAILY 10/11/22 10/17/22 History Semaglutide [Ozempic] 0.5 mg SQ MO 10/11/22 10/17/22 History Sertraline [Zoloft] 100 mg PO BID 10/11/22 10/17/22 History ALPRAZolam [Xanax] 0.5 mg PO TID PRN #14 tab 10/13/22 10/17/22 Rx Albuterol Inhaler [Ventolin Hfa 2 puff INHALATION RT-Q6H PRN #60 10/13/22 10/17/22 Rx Inhaler] each Budesonide-Formot 160-4.5 Mcg 2 puff INHALATION RT-BID 10/17/22 10/17/22 History [Symbicort 160-4.5 Mcg Inhaler] Nicotine 21Mg/24Hr Patch [Habitrol] 1 patch TRANSDERM DAILY 10/17/22 10/17/22 History Ipratropium-Albuterol Nebulize 3 ml INHALATION RT-QID #30 each 10/22/22 Rx [Duoneb 0.5 mg-3 mg/3 ml Soln] amLODIPine [Norvasc] 5 mg PO DAILY #30 tab 10/22/22 Rx levoFLOXacin 750 mg PO DAILY #7 tab 10/22/22 Rx Allergies Allergy/AdvReac Type Severity Reaction Status Date / Time bupropion [From Wellbutrin] Allergy Confusion Verified 10/17/22 11:07 codeine Allergy Nausea & Verified 10/17/22 11:07 Vomiting Sulfa (Sulfonamide Allergy Nausea & Verified 10/17/22 11:07 Antibiotics) Vomiting & Diarrhea Physical Exam Vitals: Vital Signs Temp Pulse Pulse Resp BP Pulse Ox 10/18/22 16:10 90 10/18/22 16:00 90 10/18/22 12:17 98.3 F 88 17 147/65 94 L 10/18/22 11:56 88 10/18/22 11:46 88 10/18/22 09:02 90 10/18/22 08:52 90 10/18/22 07:00 98.1 F 75 16 174/81 94 L 10/18/22 01:12 98.7 F 89 16 164/71 96 10/17/22 20:33 92 10/17/22 20:22 88 10/17/22 20:10 14 10/17/22 18:53 98.9 F 99 14 133/60 95 Intake and Output 10/18/22 10/18/22 10/18/22 06:59 14:59 22:59 Intake Total 900 Balance 900 Intake: Intake, IV Titration 900 Amount Sodium Chloride 0.9% 1, 900 000 ml @ 75 mls/hr IV . [id number] [facility] Rx#:[id number] Other: Voiding Method Bedside Commode # Voids 1 2 GENERAL DESCRIPTION: Middle-aged female lying in bed, no distress. No tachypnea or accessory muscle of respiration use. HEENT: Shows Pallor , no scleral icterus. Oral mucous membrane is dry. No pharyngeal erythema or thrush NECK: Trachea central, no thyromegaly. LUNGS: Unlabored breathing. Decreased intensity of breath sounds. No wheeze or crackle. HEART: S1, S2, regular rate and rhythm. No loud murmur ABDOMEN: Soft, no tenderness , guarding or rigidity, no organomegaly EXTREMITIES: No edema of feet. SKIN: No rash, no masses palpable. NEUROLOGICAL: The patient is awake, alert, oriented x3, mood and affect normal. Results CBC & Chem 7: 10/21/22 07:24 10/21/22 07:24 Labs: Abnormal Lab Results - Last 24 Hours (Table) 10/17/22 10/17/22 10/17/22 Range/Units 14:44 17:10 20:10 WBC (3.8-10.6) k/uL Plt Count (150-450) k/uL Sodium (137-145) mmol/L BUN (7-17) mg/dL Creatinine (0.52-1.04) mg/dL Glucose (74-99) mg/dL POC Glucose (mg/dL) 335 H 321 H (70-110) mg/dL Alkaline Phosphatase (38-126) U/L Total Protein (6.3-8.2) g/dL Albumin (3.5-5.0) g/dL Procalcitonin 0.18 H (0.02-0.09) ng/mL 10/18/22 10/18/22 10/18/22 Range/Units 04:37 04:37 07:01 WBC 15.7 H (3.8-10.6) k/uL Plt Count 134 L (150-450) k/uL Sodium 133 L (137-145) mmol/L BUN 18 H (7-17) mg/dL Creatinine 0.41 L (0.52-1.04) mg/dL Glucose 266 H (74-99) mg/dL POC Glucose (mg/dL) 251 H (70-110) mg/dL Alkaline Phosphatase 168 H (38-126) U/L Total Protein 6.0 L (6.3-8.2) g/dL Albumin 3.4 L (3.5-5.0) g/dL Procalcitonin (0.02-0.09) ng/mL 10/18/22 Range/Units 11:04 WBC (3.8-10.6) k/uL Plt Count (150-450) k/uL Sodium (137-145) mmol/L BUN (7-17) mg/dL Creatinine (0.52-1.04) mg/dL Glucose (74-99) mg/dL POC Glucose (mg/dL) 206 H (70-110) mg/dL Alkaline Phosphatase (38-126) U/L Total Protein (6.3-8.2) g/dL Albumin (3.5-5.0) g/dL Procalcitonin (0.02-0.09) ng/mL Microbiology - Last 24 Hours (Table) 10/17/22 10:37 Blood Culture - Preliminary Blood No Growth after 24 hours 10/17/22 10:20 Blood Culture - Preliminary Blood No Growth after 24 hours Assessment and Plan (1) Pneumonia Status: Acute Code(s): J18.9 - PNEUMONIA, UNSPECIFIED ORGANISM SNOMED Code(s): 563896061 Plan: 1patient with a recent diagnosis of small cell cancer and concerning for postobstructive pneumonia now presenting to the hospital with increasing shortness of breath CT angiogram of the chest did shows groundglass opacities concerning for possible atypical pneumonia however the patient is currently not running any fever White count is elevated however the patient has been on steroids and procalcitonin is only 0.18 with a question of possible lymphangitic spread of her malignancy rather than atypical pneumonia. There was also mention of fungal component on the CT report unfortunately no BAL or fungal culture were done on bronchoscopy specimen, with a possible fungal colonization of the tumor cavity 2sputum culture has been requested as well as urine for Legionella antigen results will be followed. 3blood cultures if the patient spike any fever. 4patient to continue with Augmentin and Levaquin 5-fungal serology has been ordered which is currently pending continue the patient on voriconazole We will follow on clinical condition and cultures to further adjust medication if needed Thank you for this consultation will follow this patient along with you Time with Patient: Greater than 30
[2022-10-19] MEDS: INSULIN ASPART (NovoLOG) 100 UNIT/ML VIAL SQ SCH ×4 (08:32→20:48)
[2022-10-19] MEDS: METOPROLOL TARTRATE 25 MG TAB PO SCH (09:10)
[2022-10-19] MEDS: DAPAGLIFLOZIN PROPANEDIOL 5 MG TABLET PO SCH (09:10)
[2022-10-19] MEDS: AMOXIC-POT CLAV 875-125MG 1 EACH TAB PO SCH ×2 (09:10→20:48)
[2022-10-19] MEDS: NICOTINE 21MG/24HR PATCH TRANSDERM SCH (09:10)
[2022-10-19] MEDS: SERTRALINE 100 MG TAB PO SCH ×2 (09:11→20:48)
[2022-10-19] MEDS: VORICONAZOLE 200 MG in SODIUM CHLORIDE 0.9% 100 ML IVPB SCH ×2 (09:13→20:49)
--- NOTE | 2022-10-19 09:25 | CA ---
Transthoracic Echo Report Name: Maryana Vela Age: 61 Gender: F : 1960 Exam Date: 10/18/2022 10:44 Exam Location: [facility] Echo Ht (in): 67 Wt (lb): 177 Ordering Physician: Abbie García DO Attending/Referring Phys: [id number], Raquel Harpsichord Maker Kelsea Tierney RDCS Procedure CPT: Indications: chf Cardiac Hx: Technical Quality: Fair Contrast 1: Total Dose (mL): Contrast 2: Total Dose (mL): MEASUREMENTS (Male / Female) Normal Values 2D ECHO LV Diastolic Diameter PLAX 4.1 cm 4.2 - 5.9 / 3.9 - 5.3 cm LV Systolic Diameter PLAX 3.3 cm IVS Diastolic Thickness 1.0 cm 0.6 - 1.0 / 0.6 - 0.9 cm LVPW Diastolic Thickness 1.2 cm 0.6 - 1.0 / 0.6 - 0.9 cm LV Relative Wall Thickness 0.5 RV Internal Dim ED PLAX 2.9 cm LA Volume 50.9 cm??? 18 - 58 / 22 - 52 cm??? M-MODE Aortic Root Diameter MM 2.7 cm LA Systolic Diameter MM 3.6 cm LA Ao Ratio MM 1.3 AV Cusp Separation MM 2.1 cm DOPPLER AV Peak Velocity 151.4 cm/s AV Peak Gradient 9.2 mmHg AV Mean Velocity 97.8 cm/s AV Mean Gradient 4.3 mmHg AV Velocity Time Integral 27.5 cm LVOT Peak Velocity 119.9 cm/s LVOT Peak Gradient 5.8 mmHg LVOT Velocity Time Integral 26.8 cm MV Area PHT 5.3 cm??? Mitral E Point Velocity 91.7 cm/s Mitral A Point Velocity 94.4 cm/s Mitral E to A Ratio 1.0 MV Deceleration Time 142.8 ms MV E' Velocity 5.3 cm/s Mitral E to MV E' Ratio 17.2 FINDINGS Left Ventricle . Normal left ventricular systolic function with no obvious regional wall motion abnormalities. Left ventricular ejection fraction is estimated at 55 %. Right Ventricle Normal right ventricular size and function. Right ventricular systolic pressure within normal limits. Right Atrium Normal right atrial size. Left Atrium Normal left atrial size. Mitral Valve Structurally normal mitral valve. Mild mitral annular calcification. No mitral stenosis, regurgitation or prolapse. Aortic Valve Trileaflet aortic valve. No aortic valve stenosis or regurgitation. Tricuspid Valve Mild tricuspid regurgitation. Pulmonic Valve Trace pulmonic regurgitation. Pericardium No pericardial effusion. Aorta Normal size aortic root and proximal ascending aorta. CONCLUSIONS Normal LV function Previewed by: Dr. Rashid Gomez MD (Electronically Signed) Final Date: 19 October 2022 09:24
[2022-10-19 11:33] LABS: Glucose,Whole Blood 245 mg/dL (70-110)
--- NOTE | 2022-10-19 11:53 | IR ---
PICC LINE PLACEMENT: HISTORY: Chemotherapy PROCEDURE: Ultrasound and fluoroscopic guidance of PICC line placement. MEDICAL SCREENER: Dr. Lynn COMPLICATIONS: None ANESTHESIA: 1% Lidocaine locally. FINDINGS/TECHNIQUE: The procedure was explained to the patient. The risks, complications, benefits and alternatives were discussed and any questions were answered. Informed consent was obtained. The patient was placed supine on the fluoroscopic table and prepped and draped in the usual sterile fash ion. Utilizing a 21 gauge needle and sonographic and fluoroscopic guidance, access in a left brachi al vein was achieved and there is placement of a 0.018 guidewire. The vein is patent. A 5-F. sheath was placed over the guidewire. The guidewire and dilator were removed and a 5-F. Double lumen PICC line was placed through the sheath with the tip at the level of the SVC/RA junction. The sheath was removed, the catheter was flushed and sutured into position. The patient was stable throughout the p rocedure and remained stable upon discharge from the Department of Radiology. The vein puncture was patent under ultrasound. A page scale image was obtained to document patency of the vein punctured. All elements of the maximal barrier technique were utilized. FLUOROSCOPY TIME: 0.2 minutes IMPRESSION: Successful PICC double lumen line placement under ultrasound and fluoroscopic guidance.
[2022-10-19] MEDS ORDERED: INSULIN DETEMIR (LEVEMIR) 100 UNIT/ML SYR SQ ONE (12:33)
--- NOTE | 2022-10-19 12:41 | P.PN ---
Subjective Progress Note Date: 10/19/22 Hospital Course: 61-year-old female with hypertension, dyslipidemia, and nicotine dependence the who was recently hospitalized here from 10/11/22 through 10/13/22 for primary lung malignancy with metastatic disease and postobstructive pneumonia. She had follow-up with Dr. Sandoval on 10/17/22 and he directed her to come to the emergency department. On arrival her room air pulse ox is 90%, the remainder of her labs within normal limits. Initial laboratory analysis showed white blood cell count of 15.5, platelets 119, sodium 1:30, and glucose 430. Initial chest x-ray showed decreased appearance of the focal opacifications in the right upper lobe extending towards the hilum, bibasilar patchy increased airspace opacities concerning for pneumonia. In the ER she was given a dose of Levaquin. Patient had been taking Augmentin on an outpatient basis. ID, oncology, pulmonology following. Bronchoscopy/biopsy on 10/13/22 confirmed small cell carcinoma. Patient underwent 1 cycle of chemotherapy inpatient. MRI brain and bone scan pending for staging. For postobstructive pneumonia, patient on antifungals as well as IV levofloxacin and Augmentin. Subjective: Patient seen and examined at bedside. No acute events overnight. He claims that her cough has improved. Shortness of breath has also improved. Continues to have some epigastric lower sternal chest pain with cough. She denies any nausea, vomiting, diarrhea, constipation, abdominal pain or urinary complaints. Pertinent positives and negatives as discussed above, a complete review of systems was performed and all other systems are negative. Vitals Signs Reviewed. General: nontoxic, no distress, appears at stated age Derm: warm, dry Head: atraumatic, normocephalic, symmetric Eyes: EOMI, no lid lag, anicteric sclera Mouth: no lip lesion, mucus membranes moist Cardiovascular: S1S2 reg, no murmur Lungs: Reduced breath sounds in the right upper lobe, no accessory muscle use, supplemental oxygen Abdominal: soft, nontender to palpation, no guarding, no appreciable organomegaly Ext: no gross muscle atrophy, no edema, no contractures Neuro: CN II-XI grossly intact, no focal neuro deficits Psych: Alert, oriented, appropriate affect Assessment and Plan: Acute hypoxic respiratory failure COPD with acute exacerabtion Postobstructive pneumonia 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 - Steroids, IV antibiotics, bronchodilators - wean O2 - Pulmonology, ID following - Also started on antifungals per pulmonology - Legionella, histoplasmosis, Aspergillus pending - Oncology following, had 1 cycle of chemotherapy - MRI brain and bone scan pending Hyponatremia, due to decreasd oral intake improving - IVF - Recheck in AM DM 2 with hyperglycemia uncontrolled - levemir changed to 25 units at night - SSI increased to medium scale - likely elevated BS in the setting of steroids - on jardiance - Follow BS, still elevated, likely - hold ozempic - check A1C 8.2% on 10/11/2022 Recent tobacco abuse - resume nicotine patch HTN HLD CVA/TIA Subacute left rib fractures DVT ppx: lovenox Code status: full code Anticipated discharge place: home Anticipated discharge time: pending clinical course Objective - Vital Signs Vital signs: Vital Signs Temp 97.8 F 10/19/22 07:07 Pulse 80 10/19/22 11:54 Resp 17 10/19/22 08:00 BP 144/69 10/19/22 07:07 Pulse Ox 95 10/19/22 07:07 FiO2 Intake & Output 10/18/22 10/19/22 10/19/22 18:59 06:59 18:59 Intake Total 1600 Output Total 200 Balance 1400 Intake: Intake, IV Titration 1000 Amount Sodium Chloride 0.9% 1, 900 000 ml @ 75 mls/hr IV . [id number] [facility] Rx#:[id number] Voriconazole 200 mg In 100 Sodium Chloride 0.9% 100 ml @ 125 mls/hr IVPB Q12HR [facility] Rx#:[id number] Oral 600 Output: Urine 200 Other: Voiding Method Bedside Commode Bedside Commode # Voids 2 1 - Labs CBC & Chem 7: 10/19/22 06:27 10/19/22 06:27 Labs: Abnormal Lab Results - Last 24 Hours (Table) 10/18/22 10/18/22 10/19/22 Range/Units 17:01 20:17 06:27 WBC 16.4 H (3.8-10.6) k/uL Plt Count 139 L (150-450) k/uL Neutrophils # 14.4 H (1.3-7.7) k/uL Sodium (137-145) mmol/L BUN (7-17) mg/dL Creatinine (0.52-1.04) mg/dL Glucose (74-99) mg/dL POC Glucose (mg/dL) 245 H 358 H (70-110) mg/dL Calcium (8.4-10.2) mg/dL Alkaline Phosphatase (38-126) U/L Total Protein (6.3-8.2) g/dL Albumin (3.5-5.0) g/dL 10/19/22 10/19/22 10/19/22 Range/Units 06:27 07:09 11:32 WBC (3.8-10.6) k/uL Plt Count (150-450) k/uL Neutrophils # (1.3-7.7) k/uL Sodium 132 L (137-145) mmol/L BUN 20 H (7-17) mg/dL Creatinine 0.44 L (0.52-1.04) mg/dL Glucose 229 H (74-99) mg/dL POC Glucose (mg/dL) 210 H 245 H (70-110) mg/dL Calcium 8.3 L (8.4-10.2) mg/dL Alkaline Phosphatase 157 H (38-126) U/L Total Protein 5.8 L (6.3-8.2) g/dL Albumin 3.3 L (3.5-5.0) g/dL Microbiology - Last 24 Hours (Table) 10/17/22 10:37 Blood Culture - Preliminary Blood No Growth after 24 hours 10/17/22 10:20 Blood Culture - Preliminary Blood No Growth after 24 hours
[2022-10-19] MEDS: DEXAMETHASONE SOD PHOSPHATE 10 MG/ML 1 ML VIAL IVP SCH (13:27)
[2022-10-19] MEDS: FAMOTIDINE 20 MG/2 ML VIAL IVP SCH (13:29)
[2022-10-19] MEDS: ONDANSETRON 16 MG in SODIUM CHLORIDE 0.9% 50 ML IVPB SCH (13:30)
--- NOTE | 2022-10-19 13:46 | P.PN ---
Subjective Progress Note Date: 10/19/22 Principal diagnosis: small cell lung cancer, suspect postobstructive obstructive pneumonia, positive fungal cultures on bronchoscopy On today's evaluation of 10/18/2022, the patient is being seen for a follow-up. She is feeling slightly better compared to yesterday. A repeat computed tomography scan of the chest was done and showed no evidence of any pulmonary embolism. Note that the CAT scan showed new ground glass opacities bilaterally consistent with a pneumonia which could be potentially an atypical pneumonia. At the same time, there was some improvement in aeration of the right upper lobe consolidation and there is some post obstructive changes in the right upper lobe still. There is also similar right pulmonary hilar and right upper lobe mass and mediastinal lymphadenopathy. There is significant narrowing of the right upper lobe bronchus and the right mainstem bronchus. The diagnosis consistent with small cell lung cancer. There is also fungal element it was noted within the biopsy which is obviously raises the concern for an ongoing fungal infection in combination with underlying malignancy. The patient is showing a white cell count of 15.7 with hemoglobin 14.8. Sodium is at 133, BUN is at 80 with a creatinine of 0.4. Pro-calcitonin level was at 0.18. The viruses and the viral screen was negative. I am evaluating this patient today 10/19/2022 in follow-up on the oncology unit. the patient is currently sitting up in bed, on 2 L nasal cannula, in no acute distress. She is feeling a bit stronger today. she was started on voriconazole for her positive fungal culture from bronchoscopy. she is receiving empiric Levaquin and Augmentin for her potential postobstructive pneumonia. she is afebrile. blood cultures continue to show no growth at 48 hours. infectious disease is following. She is scheduled to start chemotherapy treatment today for her small cell lung cancer with combination of Carboplatin and Etoposide. this treatment is being directed by oncology. patient's CBC from today shows some leukocytosis with a WBC count of 16.4, hemoglobin of 14.6, hematocrit 43.6, platelets 139,000. Her BMP from today shows a sodium of 132, potassium 4.4, chloride 100, serum CO2 26, BUN 20, creatinine 0.44, glucose 229. an MRI of the brain to rule out metastasis to the brain is ordered and pending.she is receiving DVT prophylaxis in the form of Lanoxin. She is receiving GI prophylaxis form of Pepcid. Objective - Vital Signs Vital signs: Vital Signs Temp 98.1 F 10/19/22 12:04 Pulse 78 10/19/22 12:04 Resp 17 10/19/22 12:04 BP 154/71 10/19/22 12:04 Pulse Ox 96 10/19/22 12:04 FiO2 Intake & Output 10/18/22 10/19/22 10/19/22 18:59 06:59 18:59 Intake Total 1600 Output Total 200 Balance 1400 Intake: Intake, IV Titration 1000 Amount Sodium Chloride 0.9% 1, 900 000 ml @ 75 mls/hr IV . [id number] [facility] Rx#:[id number] Voriconazole 200 mg In 100 Sodium Chloride 0.9% 100 ml @ 125 mls/hr IVPB Q12HR [facility] Rx#:[id number] Oral 600 Output: Urine 200 Other: Voiding Method Bedside Commode Bedside Commode # Voids 2 1 - Exam GENERAL EXAM: Alert, very pleasant 61-year-old female patienthemoglobin, comfortable in no apparent distress. HEAD: Normocephalic. EYES: Normal reaction of pupils, equal size. NOSE: Clear with pink turbinates. THROAT: No erythema or exudates. NECK: No masses, no JVD. CHEST: No chest wall deformity. LUNGS: equal air entry with scattered rhonchi throughout and diminished breath sounds on the right. No crackles or wheezes. on 2 L nasal cannula. No conversational dyspnea or accessory muscle use. CVS: S1 and S2 normal with no audible murmur, regular rhythm. ABDOMEN: No hepatosplenomegaly, normal bowel sounds, no guarding or rigidity. SPINE: No scoliosis or deformity SKIN: No rashes CENTRAL NERVOUS SYSTEM: No focal deficits, tone is normal in all 4 extremities. EXTREMITIES: There is no peripheral edema. No clubbing, no cyanosis. Peripheral pulses are intact. multiple - Labs CBC & Chem 7: 10/19/22 06:27 10/19/22 06:27 Labs: Abnormal Lab Results - Last 24 Hours (Table) 10/18/22 10/18/22 10/19/22 Range/Units 17:01 20:17 06:27 WBC 16.4 H (3.8-10.6) k/uL Plt Count 139 L (150-450) k/uL Neutrophils # 14.4 H (1.3-7.7) k/uL Sodium (137-145) mmol/L BUN (7-17) mg/dL Creatinine (0.52-1.04) mg/dL Glucose (74-99) mg/dL POC Glucose (mg/dL) 245 H 358 H (70-110) mg/dL Calcium (8.4-10.2) mg/dL Alkaline Phosphatase (38-126) U/L Total Protein (6.3-8.2) g/dL Albumin (3.5-5.0) g/dL 10/19/22 10/19/22 10/19/22 Range/Units 06:27 07:09 11:32 WBC (3.8-10.6) k/uL Plt Count (150-450) k/uL Neutrophils # (1.3-7.7) k/uL Sodium 132 L (137-145) mmol/L BUN 20 H (7-17) mg/dL Creatinine 0.44 L (0.52-1.04) mg/dL Glucose 229 H (74-99) mg/dL POC Glucose (mg/dL) 210 H 245 H (70-110) mg/dL Calcium 8.3 L (8.4-10.2) mg/dL Alkaline Phosphatase 157 H (38-126) U/L Total Protein 5.8 L (6.3-8.2) g/dL Albumin 3.3 L (3.5-5.0) g/dL Microbiology - Last 24 Hours (Table) 10/17/22 10:37 Blood Culture - Preliminary Blood No Growth after 48 hours 10/17/22 10:20 Blood Culture - Preliminary Blood No Growth after 48 hours Assessment and Plan Assessment: acute on chronic dyspnea, likely secondary to a component of COPD exacerbation. The patient has also background lung cancer with obstruction of the right upper lobe bronchus due to endobronchial tumor. The patient was discharged home recently on a course of Augmentin and prednisone burst taper. there is development of acute bilateral vague pulmonary infiltrates Consider atypical pneumonia. Consider fungal pneumonia especially the patient's biopsy showed fungal elements in combination with tumor. metastatic small cell lung cancer Acute COPD exacerbation, complicated by right hilar mass, and postobstructive pneumonia. consider superinfection with various agents including atypical bacterial versus fungi. Ongoing tobacco use with nicotine addiction. History of diabetes mellitus. History of CVA. History of hypertension. History of hyperlipidemia. History of depression. Multiple previous surgeries including colon resection, appendectomy, section, cholecystectomy, and hysterectomy. Plan oncology has started the patient on a combination of Etoposide and Carboplatin. Complete MRI of the brain pending results for Aspergillus and histoplasma antibodies continue voriconazole pending Legionella urine antigen Continue empiric Augmentin and Levaquin infectious diseases on the case continue bronchodilators, Symbicort inhaler, IV Solu-Medrol Time with Patient: Less than 30
[2022-10-19] MEDS ORDERED: ONDANSETRON 4 MG/2 ML VIAL IVP PRN (14:00)
--- NOTE | 2022-10-19 14:56 | NM ---
EXAMINATION TYPE: NM bone scan whole body DATE OF EXAM: 10/19/2022 COMPARISON: CTA chest 2 days ago HISTORY: Small cell lung cancer newly diagnosed Delayed whole-body scanning was performed following the injection of 21.0 mCi Tc 99m MDP. Images acq uired 5.25 hours post injection. Whole body images obtained in anterior and posterior projection jannette g with spot views of the skull neck thorax and abdomen. FINDINGS: There is abnormal increased radiotracer uptake suggesting osseous metastatic disease corres ponding to several lesions in the bilateral ribs at varying levels along with additional scattered le sions throughout the thoracolumbar spine with more prominent uptake at roughly L1 level corresponding to level of mild height loss and possible acute/early subacute fracture on recent CT. Subtle areas i n the sternum are noted with less well corresponding lesion seen on CT. Subtle lesions in the bilater al humeri are felt present. Subtle osseous metastatic disease to the calvarium is likely with at leas t 2 small foci of increased radiotracer uptake. Nonvisualized kidneys suggests possible SuperScan but there is less impressive CT correlation than expected for a SuperScan. Increased radiotracer uptake bilateral knees is likely product of degenerative change. IMPRESSION: Osseous metastatic disease is present as detailed above
--- NOTE | 2022-10-19 14:58 | P.PN ---
Subjective Progress Note Date: 10/19/22 Principal diagnosis: Pneumonia Patient is a 61-year female with a past medical history significant for hypertension COPD and did have a [id number] of smoking, with a recent diagnosis of right perihilar mass status post biopsy suggestive of small cell carcinoma biopsy also mentions some fungal component however no BAL for fungal culture were done on 10/15/2022, patient was in the hospital with increasing shortness of breath CT Sinan with the groundglass opacity. On today's evaluation that is 10/19/2022, the patient denies having any fever or any chills the patient is a breathing comfortably and is currently on room air, patient denies having any chest pain, the patient cough has decrease in density mostly dry in nature no nausea no vomiting no abdominal pain or diarrhea Objective - Vital Signs Vital signs: Vital Signs Temp 97.8 F 10/19/22 07:07 Pulse 79 10/19/22 08:00 Resp 17 10/19/22 08:00 BP 144/69 10/19/22 07:07 Pulse Ox 95 10/19/22 07:07 FiO2 Intake & Output 10/18/22 10/19/22 10/19/22 18:59 06:59 18:59 Intake Total 1600 Output Total 200 Balance 1400 Intake: Intake, IV Titration 1000 Amount Sodium Chloride 0.9% 1, 900 000 ml @ 75 mls/hr IV . [id number] ANTHONY Rx#:[id number] Voriconazole 200 mg In 100 Sodium Chloride 0.9% 100 ml @ 125 mls/hr IVPB Q12HR ANTHONY Rx#:[id number] Oral 600 Output: Urine 200 Other: Voiding Method Bedside Commode Bedside Commode # Voids 2 1 - Exam GENERAL DESCRIPTION: Middle-aged female lying in bed in no distress RESPIRATORY SYSTEM: Unlabored breathing , decreased breath sounds at bases HEART: S1 S2 regular rate and rhythm , ABDOMEN: Soft , no tenderness EXTREMITIES: No edema feet - Labs CBC & Chem 7: 10/21/22 07:24 10/21/22 07:24 Labs: Abnormal Lab Results - Last 24 Hours (Table) 10/18/22 10/18/22 10/18/22 Range/Units 11:04 17:01 20:17 WBC (3.8-10.6) k/uL Plt Count (150-450) k/uL Neutrophils # (1.3-7.7) k/uL Sodium (137-145) mmol/L BUN (7-17) mg/dL Creatinine (0.52-1.04) mg/dL Glucose (74-99) mg/dL POC Glucose (mg/dL) 206 H 245 H 358 H (70-110) mg/dL Calcium (8.4-10.2) mg/dL Alkaline Phosphatase (38-126) U/L Total Protein (6.3-8.2) g/dL Albumin (3.5-5.0) g/dL 10/19/22 10/19/22 10/19/22 Range/Units 06:27 06:27 07:09 WBC 16.4 H (3.8-10.6) k/uL Plt Count 139 L (150-450) k/uL Neutrophils # 14.4 H (1.3-7.7) k/uL Sodium 132 L (137-145) mmol/L BUN 20 H (7-17) mg/dL Creatinine 0.44 L (0.52-1.04) mg/dL Glucose 229 H (74-99) mg/dL POC Glucose (mg/dL) 210 H (70-110) mg/dL Calcium 8.3 L (8.4-10.2) mg/dL Alkaline Phosphatase 157 H (38-126) U/L Total Protein 5.8 L (6.3-8.2) g/dL Albumin 3.3 L (3.5-5.0) g/dL Microbiology - Last 24 Hours (Table) 10/17/22 10:37 Blood Culture - Preliminary Blood No Growth after 24 hours 10/17/22 10:20 Blood Culture - Preliminary Blood No Growth after 24 hours Assessment and Plan (1) Pneumonia Status: Acute Code(s): J18.9 - PNEUMONIA, UNSPECIFIED ORGANISM SNOMED Code(s): 433817235 Plan: 1patient with a recent diagnosis of small cell cancer and concerning for postobstructive pneumonia now presenting to the hospital with increasing shortness of breath CT angiogram of the chest did shows groundglass opacities concerning for possible atypical pneumonia however the patient is currently not running any fever White count is elevated however the patient has been on steroids and procalcitonin is only 0.18 with a question of possible lymphangitic spread of her malignancy rather than atypical pneumonia. There was also mention of fungal component on the CT report unfortunately no BAL or fungal culture were done on bronchoscopy specimen, with a possible fungal colonization of the tumor cavity 2 fungal serology is currently pending continue the patient on voriconazole, Levaquin and Augmentin will monitor clinical course closely Time with Patient: Less than 30
[2022-10-19] MEDS: ETOPOSIDE 200 MG in SODIUM CHLORIDE 0.9% 500 ML 500 ML IV SCH (15:11)
[2022-10-19 16:53] LABS: Glucose,Whole Blood 153 mg/dL (70-110)
[2022-10-19] MEDS: MORPHINE SULFATE 4 MG/ML SYRINGE IVP PRN ×2 (16:59→22:05)
[2022-10-19] MEDS: LEVOFLOXACIN 750MG-D5W PMX 750 MG in DEXTROSE/WATER 1 150ML.BAG IVPB SCH (17:32)
--- NOTE | 2022-10-19 17:39 | P.PN ---
Subjective Progress Note Date: 10/19/22 Principal diagnosis: SCLC In f/u, chemo started, no side effects to report, breathing is stable, not worse. Objective - Vital Signs Vital signs: Vital Signs Temp 98.7 F 10/19/22 15:05 Pulse 84 10/19/22 15:55 Resp 17 10/19/22 15:05 BP 150/77 10/19/22 15:05 Pulse Ox 94 L 10/19/22 15:05 FiO2 Intake & Output 10/18/22 10/19/22 10/19/22 18:59 06:59 18:59 Intake Total 1600 Output Total 200 Balance 1400 Intake: Intake, IV Titration 1000 Amount Sodium Chloride 0.9% 1, 900 000 ml @ 75 mls/hr IV . [id number] ANTHONY Rx#:[id number] Voriconazole 200 mg In 100 Sodium Chloride 0.9% 100 ml @ 125 mls/hr IVPB Q12HR ANTHONY Rx#:[id number] Oral 600 Output: Urine 200 Other: Voiding Method Bedside Commode Bedside Commode # Voids 2 1 2 - Constitutional General appearance: Present: average body habitus, cooperative, no acute distress - EENT Eyes: Present: anicteric sclerae, EOMI ENT: Present: hearing grossly normal - Respiratory Respiratory: right: diminished, wheezing - Cardiovascular Rhythm: regular Heart sounds: normal: S1, S2 Abnormal Heart Sounds: Absent: systolic murmur, diastolic murmur, rub, S3 Gallop, S4 Gallop, click, other - Peripheral edema leg Peripheral Edema: bilateral: None - Gastrointestinal General gastrointestinal: Present: normal bowel sounds, soft - Neurologic Neurologic: Present: CNII-XII intact - Musculoskeletal Musculoskeletal: Present: generalized weakness, strength equal bilaterally - Psychiatric Psychiatric: Present: A&O x's 3, appropriate affect, intact judgment & insight - Labs CBC & Chem 7: 10/19/22 06:27 10/19/22 06:27 Labs: Abnormal Lab Results - Last 24 Hours (Table) 10/18/22 10/19/22 10/19/22 Range/Units 20:17 06:27 06:27 WBC 16.4 H (3.8-10.6) k/uL Plt Count 139 L (150-450) k/uL Neutrophils # 14.4 H (1.3-7.7) k/uL Sodium 132 L (137-145) mmol/L BUN 20 H (7-17) mg/dL Creatinine 0.44 L (0.52-1.04) mg/dL Glucose 229 H (74-99) mg/dL POC Glucose (mg/dL) 358 H (70-110) mg/dL Calcium 8.3 L (8.4-10.2) mg/dL Alkaline Phosphatase 157 H (38-126) U/L Total Protein 5.8 L (6.3-8.2) g/dL Albumin 3.3 L (3.5-5.0) g/dL 10/19/22 10/19/22 10/19/22 Range/Units 07:09 11:32 16:52 WBC (3.8-10.6) k/uL Plt Count (150-450) k/uL Neutrophils # (1.3-7.7) k/uL Sodium (137-145) mmol/L BUN (7-17) mg/dL Creatinine (0.52-1.04) mg/dL Glucose (74-99) mg/dL POC Glucose (mg/dL) 210 H 245 H 153 H (70-110) mg/dL Calcium (8.4-10.2) mg/dL Alkaline Phosphatase (38-126) U/L Total Protein (6.3-8.2) g/dL Albumin (3.5-5.0) g/dL Microbiology - Last 24 Hours (Table) 10/17/22 10:37 Blood Culture - Preliminary Blood No Growth after 48 hours 10/17/22 10:20 Blood Culture - Preliminary Blood No Growth after 48 hours Assessment and Plan (1) Small cell carcinoma Current Visit: Yes Status: Acute Priority: High Code(s): C80.1 - MALIGNANT (PRIMARY) NEOPLASM, UNSPECIFIED SNOMED Code(s): 22465198507288657 Plan: Small cell carcinoma: -Bronchoscopy/biopsy resulted-small cell carcinoma. Dr. Bruno reviewed diagnosis, prognosis, treatment options, life expectancy with and with out treatment with pt and . All pt and husbands questions were answered to her satisfaction. -Pt has not been able to remain out pt long enough to be seen or complete staging scans -MRI brain and NM bone scan ordered to complete staging work up -Pulmonary recommending abx and antifungal, which is ordered. -Will have 1st cycle of Carbo/TRAFFIC SURVEY TECHNICIAN treatment inpatient. Pt agreeable to start. Doing well so far Attests: I have seen and examined pt, performed H&P, developed impression and plan of care. Discussed with dictator. Agree with dictation, documented as a scribe.
[2022-10-19 20:33] LABS: Glucose,Whole Blood 178 mg/dL (70-110)
[2022-10-19] MEDS: ATORVASTATIN 40 MG TAB PO SCH (20:48)
[2022-10-20] MEDS: MORPHINE SULFATE 4 MG/ML SYRINGE IVP PRN ×2 (04:04→20:34)
[2022-10-20] MEDS: SODIUM CHLORIDE 0.9% 1,000 ML IV SCH ×2 (06:07→20:34)
[2022-10-20 06:54] LABS: Basophils % (A) 0 %; Eosinophils % (A) 0 %; HGB 14.6 gm/dL (11.4-16.0); Lymphocytes # (A) 1.1 k/uL (1.0-4.8); Lymphocytes % (A) 6 %; MCH 30.1 pg (25.0-35.0); MCHC 33.2 g/dL (31.0-37.0); MCV 90.8 fL (80.0-100.0); Mean Platelet Volume 10.9; Monocytes % (A) 6 %; Neutrophils # (A) 15.9 k/uL (1.3-7.7); Neutrophils % (A) 87 %; Platelet Count 155 k/uL (150-450); RBC 4.85 m/uL (3.80-5.40); RDW 13.1 % (11.5-15.5); WBC 18.3 k/uL (3.8-10.6)
[2022-10-20] MEDS ORDERED: INSULIN DETEMIR (LEVEMIR) 100 UNIT/ML SYR SQ SCH (07:00)
[2022-10-20 07:02] LABS: African American GFR (CKD) >90 (>60 ml/min/1.73 sqM); Anion Gap 3 mmol/L; Blood Urea Nitrogen 21 mg/dL (7-17); Calcium 8.4 mg/dL (8.4-10.2); Carbon Dioxide 28 mmol/L (22-30); Chloride 102 mmol/L (98-107); Glucose 208 mg/dL (74-99); Non-African American GFR(CKD) >90 (>60 ml/min/1.73 sqM); Potassium 4.3 mmol/L (3.5-5.1); Sodium 133 mmol/L (137-145)
[2022-10-20 07:43] LABS: Glucose,Whole Blood 231 mg/dL (70-110)
[2022-10-20] MEDS: SYMBICORT 160-4.5 MCG INHALER INHALATION SCH ×2 (07:57→20:02)
[2022-10-20] MEDS: IPRATROPIUM-ALBUTEROL 3 ML NEB INHALATION SCH ×4 (07:57→20:02)
[2022-10-20] MEDS: NICOTINE 21MG/24HR PATCH TRANSDERM SCH (09:37)
[2022-10-20] MEDS: AMOXIC-POT CLAV 875-125MG 1 EACH TAB PO SCH ×2 (09:37→20:33)
[2022-10-20] MEDS: INSULIN ASPART (NovoLOG) 100 UNIT/ML VIAL SQ SCH ×4 (09:37→20:33)
[2022-10-20] MEDS: ENOXAPARIN 40 MG/0.4 ML SYRINGE SQ SCH (09:38)
[2022-10-20] MEDS: METOPROLOL TARTRATE 25 MG TAB PO SCH (09:38)
[2022-10-20] MEDS: SERTRALINE 100 MG TAB PO SCH ×2 (09:38→20:33)
[2022-10-20] MEDS: DAPAGLIFLOZIN PROPANEDIOL 5 MG TABLET PO SCH (09:38)
[2022-10-20] MEDS: VORICONAZOLE 200 MG in SODIUM CHLORIDE 0.9% 100 ML IVPB SCH ×2 (09:48→20:33)
--- NOTE | 2022-10-20 11:25 | P.PN ---
Subjective Progress Note Date: 10/20/22 On today's evaluation of 10/18/2022, the patient is being seen for a follow-up. She is feeling slightly better compared to yesterday. A repeat computed tomography scan of the chest was done and showed no evidence of any pulmonary embolism. Note that the CAT scan showed new ground glass opacities bilaterally consistent with a pneumonia which could be potentially an atypical pneumonia. At the same time, there was some improvement in aeration of the right upper lobe consolidation and there is some post obstructive changes in the right upper lobe still. There is also similar right pulmonary hilar and right upper lobe mass and mediastinal lymphadenopathy. There is significant narrowing of the right upper lobe bronchus and the right mainstem bronchus. The diagnosis consistent with small cell lung cancer. There is also fungal element it was noted within the biopsy which is obviously raises the concern for an ongoing fungal infection in combination with underlying malignancy. The patient is showing a white cell count of 15.7 with hemoglobin 14.8. Sodium is at 133, BUN is at 80 with a cre atinine of 0.4. Pro-calcitonin level was at 0.18. The viruses and the viral screen was negative. I am evaluating this patient today 10/19/2022 in follow-up on the oncology unit. the patient is currently sitting up in bed, on 2 L nasal cannula, in no acute distress. She is feeling a bit stronger today. she was started on voriconazole for her positive fungal culture from bronchoscopy. she is receiving empiric Levaquin and Augmentin for her potential postobstructive pneumonia. she is afebrile. blood cultures continue to show no growth at 48 hours. infectious disease is following. She is scheduled to start chemotherapy treatment today for her small cell lung cancer with combination of Carboplatin and Etoposide. this treatment is being directed by oncology. patient's CBC from today shows some leukocytosis with a WBC count of 16.4, hemoglobin of 14.6, hematocrit 43.6, platelets 139,000. Her BMP from today shows a sodium of 132, potassium 4.4, chloride 100, serum CO2 26, BUN 20, creatinine 0.44, glucose 229. an MRI of the brain to rule out metastasis to the brain is ordered and pending.she is receiving DVT prophylaxis in the form of Lanoxin. She is receiving GI prophylaxis form of Pepcid. The patient is seen today 10/20/2022 in follow-up on the oncology unit. She is awake and alert in no acute distress. Sitting up in bed. Maintaining good O2 saturations in the 90s on room air. She's afebrile. Hemodynamically stable. She is breathing easier today compared to yesterday. She does have a left upper extremity PICC line in place. She remains on voriconazole. She is also on antibiotics in the form of Augmentin and Levaquin. Continued on bronchodilators. Continued on Decadron. NicoDerm patch in place. White count 18.3. Hemoglobin 14.6. Platelets 155. Sodium 133. Potassium 4.3. Bicarb 28. BUN 21. Creatinine 0.51. Glucose 208. Calcium 8.4. Bone scan was positive for abnormal increased radiotracer uptake suggesting osseous metastatic disease corresponded to several lesions in the bilateral ribs at varying levels along the additional scattered lesions throughout the thoracic or lumbar spine with more prominent uptake at roughly L1 level corresponding to level of mild height loss and possible acute/early subacute fracture. Subtle areas in the sternum were noted with less well corresponding lesion seen on CT. Subtle lesions in the bilateral humeri are present. Subtle osseous metastatic disease to the calvarium with at least 2 small foci of increased radiotracer uptake. She received carboplatin and etoposide yesterday. Objective - Vital Signs Vital signs: Vital Signs Temp 97.6 F 10/20/22 08:00 Pulse 70 10/20/22 08:10 Resp 18 10/20/22 08:00 BP 162/79 10/20/22 08:00 Pulse Ox 99 10/20/22 08:00 FiO2 Intake & Output 10/19/22 10/20/22 10/20/22 18:59 06:59 18:59 Intake Total 1600 Balance 1600 Intake: Intake, IV Titration 1000 Amount Sodium Chloride 0.9% 1, 900 000 ml @ 75 mls/hr IV . [id number] ANTHONY Rx#:[id number] Voriconazole 200 mg In 100 Sodium Chloride 0.9% 100 ml @ 125 mls/hr IVPB Q12HR ANTHONY Rx#:[id number] Oral 600 Other: Voiding Method Bedside Commode # Voids 2 3 2 - Exam GENERAL EXAM: Alert, pleasant 61-year-old female, on room air, fairly comfortable in no apparent distress. HEAD: Normocephalic. EYES: Normal reaction of pupils, equal size. NOSE: Clear with pink turbinates. THROAT: No erythema or exudates. NECK: No masses, no JVD. CHEST: No chest wall deformity. LUNGS: Equal air entry with bilateral scattered rhonchi. CVS: S1 and S2 normal with no audible murmur, regular rhythm. ABDOMEN: No hepatosplenomegaly, normal bowel sounds, no guarding or rigidity. SPINE: No scoliosis or deformity SKIN: No rashes CENTRAL NERVOUS SYSTEM: No focal deficits, tone is normal in all 4 extremities. EXTREMITIES: There is no peripheral edema. No clubbing, no cyanosis. Peripheral pulses are intact. - Labs CBC & Chem 7: 10/20/22 06:38 10/20/22 06:38 Labs: Abnormal Lab Results - Last 24 Hours (Table) 10/19/22 10/19/22 10/19/22 Range/Units 06:27 11:32 16:52 WBC (3.8-10.6) k/uL Neutrophils # (1.3-7.7) k/uL Sodium (137-145) mmol/L BUN (7-17) mg/dL Creatinine (0.52-1.04) mg/dL Glucose (74-99) mg/dL POC Glucose (mg/dL) 245 H 153 H (70-110) mg/dL Hemoglobin A1c 8.6 H (0.0-6.0) % 10/19/22 10/20/22 10/20/22 Range/Units 20:31 06:38 06:38 WBC 18.3 H (3.8-10.6) k/uL Neutrophils # 15.9 H (1.3-7.7) k/uL Sodium 133 L (137-145) mmol/L BUN 21 H (7-17) mg/dL Creatinine 0.51 L (0.52-1.04) mg/dL Glucose 208 H (74-99) mg/dL POC Glucose (mg/dL) 178 H (70-110) mg/dL Hemoglobin A1c (0.0-6.0) % 10/20/22 Range/Units 07:38 WBC (3.8-10.6) k/uL Neutrophils # (1.3-7.7) k/uL Sodium (137-145) mmol/L BUN (7-17) mg/dL Creatinine (0.52-1.04) mg/dL Glucose (74-99) mg/dL POC Glucose (mg/dL) 231 H (70-110) mg/dL Hemoglobin A1c (0.0-6.0) % Microbiology - Last 24 Hours (Table) 10/17/22 10:37 Blood Culture - Preliminary Blood No Growth after 48 hours 10/17/22 10:20 Blood Culture - Preliminary Blood No Growth after 48 hours Assessment and Plan Assessment: Acute on chronic dyspnea, likely secondary to a component of acute exacerbation of COPD. The patient has also background lung cancer with obstruction of the right upper lobe bronchus due to endobronchial tumor. The patient was discharged home recently on a course of Augmentin and prednisone burst taper. There is development of acute bilateral vague pulmonary infiltrates Consider atypical pneumonia. Consider fungal pneumonia especially the patient's biopsy showed fungal elements in combination with tumor. Initiated on Levaquin and voriconazole. Metastatic small cell lung cancer. Bone scan was positive for abnormal increased radiotracer uptake suggesting osseous metastatic disease corresponded to several lesions in the bilateral ribs at varying levels along the additional scattered lesions throughout the thoracic or lumbar spine with more prominent uptake at roughly L1 level corresponding to level of mild height loss and possible acute/early subacute fracture. Subtle areas in the sternum were noted with less well corresponding lesion seen on CT. Subtle lesions in the bilateral humeri are present. Subtle osseous metastatic disease to the calvarium with at least 2 small foci of increased radiotracer uptake. She received carboplatin and etoposide 10/19/2022. Ongoing tobacco use with nicotine addiction. History of diabetes mellitus. History of CVA. History of hypertension. History of hyperlipidemia. History of depression. Multiple previous surgeries including colon resection, appendectomy, section, cholecystectomy, and hysterectomy. Plan: The patient was seen and evaluated Bone scan, labs and medications reviewed She did receive carboplatin and etoposide Currently receiving Decadron She continues on voriconazole, Augmentin and Levaquin Educated regarding the importance of complete smoking cessation NicoDerm patch in place Assure adequate pain control Lovenox for DVT prophylaxis We will continue to follow I have personally seen and examined the patient, performed the documentation and the assessment and plan as written. Number of minutes spent on the visit: 10.
[2022-10-20 11:37] LABS: Glucose,Whole Blood 245 mg/dL (70-110)
--- NOTE | 2022-10-20 13:10 | P.PN ---
Subjective Progress Note Date: 10/20/22 Hospital Course: 61-year-old female with hypertension, dyslipidemia, and nicotine dependence the who was recently hospitalized here from 10/11/22 through 10/13/22 for primary lung malignancy with metastatic disease and postobstructive pneumonia. She had follow-up with Dr. Sandoval on 10/17/22 and he directed her to come to the emergency department. On arrival her room air pulse ox is 90%, the remainder of her labs within normal limits. Initial laboratory analysis showed white blood cell count of 15.5, platelets 119, sodium 1:30, and glucose 430. Initial chest x-ray showed decreased appearance of the focal opacifications in the right upper lobe extending towards the hilum, bibasilar patchy increased airspace opacities concerning for pneumonia. In the ER she was given a dose of Levaquin. Patient had been taking Augmentin on an outpatient basis. ID, oncology, pulmonology following. Bronchoscopy/biopsy on 10/13/22 confirmed small cell carcinoma as well as multiple fungal organisms. Patient underwent 1 cycle of chemotherapy inpatient. MRI brain and bone scan for staging. For postobstructive pneumonia, patient on antifungals as well as IV levofloxacin and Augmentin. Bone scan showing osseous metastatic disease. Subjective: Patient seen and examined at bedside. No acute events overnight. He claims that her cough has improved. Shortness of breath has also improved. Continues to have some epigastric lower sternal chest pain with cough. She denies any nausea, vomiting, diarrhea, constipation, abdominal pain or urinary complaints. Pertinent positives and negatives as discussed above, a complete review of systems was performed and all other systems are negative. Vitals Signs Reviewed. General: nontoxic, no distress, appears at stated age Derm: warm, dry Head: atraumatic, normocephalic, symmetric Eyes: EOMI, no lid lag, anicteric sclera Mouth: no lip lesion, mucus membranes moist Cardiovascular: S1S2 reg, no murmur Lungs: Reduced breath sounds in the right upper lobe, no accessory muscle use, supplemental oxygen Abdominal: soft, nontender to palpation, no guarding, no appreciable organomegaly Ext: no gross muscle atrophy, no edema, no contractures Neuro: CN II-XI grossly intact, no focal neuro deficits Psych: Alert, oriented, appropriate affect Assessment and Plan: Acute hypoxic respiratory failure COPD with acute exacerabtion Postobstructive pneumonia Fungal pneumonia 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 - IV antibiotics, bronchodilators - wean O2 - Pulmonology, ID following -On antifungal -Remains on dexamethasone for chemotherapy, methylprednisone discontinued - Legionella negative, histoplasmosis, Aspergillus pending - Oncology following, had 1 round of chemotherapy, 2 more rounds pending - MRI brain pending - Bone scan shows osseous metastatic disease Mild Hyponatremia, due to decreasd oral intake improving - IVF DM 2 with hyperglycemia uncontrolled - levemir changed to 25 units at night - SSI increased to medium scale - likely elevated BS in the setting of steroids - on jardiance - hold ozempic - check A1C 8.2% on 10/11/2022 Recent tobacco abuse - resume nicotine patch HTN HLD CVA/TIA Subacute left rib fractures DVT ppx: lovenox Code status: full code Anticipated discharge place: home with home care, including oxygen as well as nebulizer Anticipated discharge time: pending clinical course Objective - Vital Signs Vital signs: Vital Signs Temp 98.6 F 10/20/22 12:00 Pulse 75 10/20/22 12:00 Resp 18 10/20/22 12:00 BP 145/71 10/20/22 12:00 Pulse Ox 97 10/20/22 12:00 FiO2 Intake & Output 10/19/22 10/20/22 10/20/22 18:59 06:59 18:59 Intake Total 1600 Balance 1600 Intake: Intake, IV Titration 1000 Amount Sodium Chloride 0.9% 1, 900 000 ml @ 75 mls/hr IV . [id number] ANTHONY Rx#:[id number] Voriconazole 200 mg In 100 Sodium Chloride 0.9% 100 ml @ 125 mls/hr IVPB Q12HR ANTHONY Rx#:[id number] Oral 600 Other: Voiding Method Bedside Commode Bedside Commode # Voids 2 3 2 - Labs CBC & Chem 7: 10/20/22 06:38 10/20/22 06:38 Labs: Abnormal Lab Results - Last 24 Hours (Table) 10/19/22 10/19/22 10/19/22 Range/Units 06:27 16:52 20:31 WBC (3.8-10.6) k/uL Neutrophils # (1.3-7.7) k/uL Sodium (137-145) mmol/L BUN (7-17) mg/dL Creatinine (0.52-1.04) mg/dL Glucose (74-99) mg/dL POC Glucose (mg/dL) 153 H 178 H (70-110) mg/dL Hemoglobin A1c 8.6 H (0.0-6.0) % 10/20/22 10/20/22 10/20/22 Range/Units 06:38 06:38 07:38 WBC 18.3 H (3.8-10.6) k/uL Neutrophils # 15.9 H (1.3-7.7) k/uL Sodium 133 L (137-145) mmol/L BUN 21 H (7-17) mg/dL Creatinine 0.51 L (0.52-1.04) mg/dL Glucose 208 H (74-99) mg/dL POC Glucose (mg/dL) 231 H (70-110) mg/dL Hemoglobin A1c (0.0-6.0) % 10/20/22 Range/Units 11:31 WBC (3.8-10.6) k/uL Neutrophils # (1.3-7.7) k/uL Sodium (137-145) mmol/L BUN (7-17) mg/dL Creatinine (0.52-1.04) mg/dL Glucose (74-99) mg/dL POC Glucose (mg/dL) 245 H (70-110) mg/dL Hemoglobin A1c (0.0-6.0) % Microbiology - Last 24 Hours (Table) 10/17/22 10:37 Blood Culture - Preliminary Blood No Growth after 72 hours 10/17/22 10:20 Blood Culture - Preliminary Blood No Growth after 72 hours
--- NOTE | 2022-10-20 14:16 | P.PN ---
Subjective Progress Note Date: 10/20/22 - nuclear medicine bone scan revealed osseous metastasis in the bilateral ribs, L1 vertebral body, sternum, bilateral humeri, and calvarium - brain MRI has not yet been performed due to obtaining further history regarding coils placed at [facility] to ensure they are MRI compatible before proceeding - CTA on admission noted innumerable hypodense liver lesions, which were concerning for metastatic disease - initiated day 1 of carboplatin/etoposide for management of extensive stage small cell lung cancer - no acute events overnight - she notes breathing has improved since initiating treatment. She denies any nausea, vomiting, or diarrhea Objective - Vital Signs Vital signs: Vital Signs Temp 98.6 F 10/20/22 12:00 Pulse 75 10/20/22 12:00 Resp 18 10/20/22 12:00 BP 145/71 10/20/22 12:00 Pulse Ox 97 10/20/22 12:00 FiO2 Intake & Output 10/19/22 10/20/22 10/20/22 18:59 06:59 18:59 Intake Total 1600 Balance 1600 Intake: Intake, IV Titration 1000 Amount Sodium Chloride 0.9% 1, 900 000 ml @ 75 mls/hr IV . [id number] [facility] Rx#:[id number] Voriconazole 200 mg In 100 Sodium Chloride 0.9% 100 ml @ 125 mls/hr IVPB Q12HR [facility] Rx#:[id number] Oral 600 Other: Voiding Method Bedside Commode Bedside Commode # Voids 2 3 2 - Constitutional General appearance: Present: average body habitus, no acute distress - EENT Eyes: Present: EOMI - Respiratory Respiratory: bilateral: CTA - Cardiovascular Rhythm: regular - Gastrointestinal General gastrointestinal: Present: normal bowel sounds, soft. Absent: distended, tenderness - Integumentary Integumentary: Absent: rash - Neurologic Neurologic: Present: CNII-XII intact - Labs CBC & Chem 7: 10/20/22 06:38 10/20/22 06:38 Labs: Abnormal Lab Results - Last 24 Hours (Table) 10/19/22 10/19/22 10/19/22 Range/Units 06:27 16:52 20:31 WBC (3.8-10.6) k/uL Neutrophils # (1.3-7.7) k/uL Sodium (137-145) mmol/L BUN (7-17) mg/dL Creatinine (0.52-1.04) mg/dL Glucose (74-99) mg/dL POC Glucose (mg/dL) 153 H 178 H (70-110) mg/dL Hemoglobin A1c 8.6 H (0.0-6.0) % 10/20/22 10/20/22 10/20/22 Range/Units 06:38 06:38 07:38 WBC 18.3 H (3.8-10.6) k/uL Neutrophils # 15.9 H (1.3-7.7) k/uL Sodium 133 L (137-145) mmol/L BUN 21 H (7-17) mg/dL Creatinine 0.51 L (0.52-1.04) mg/dL Glucose 208 H (74-99) mg/dL POC Glucose (mg/dL) 231 H (70-110) mg/dL Hemoglobin A1c (0.0-6.0) % 10/20/22 Range/Units 11:31 WBC (3.8-10.6) k/uL Neutrophils # (1.3-7.7) k/uL Sodium (137-145) mmol/L BUN (7-17) mg/dL Creatinine (0.52-1.04) mg/dL Glucose (74-99) mg/dL POC Glucose (mg/dL) 245 H (70-110) mg/dL Hemoglobin A1c (0.0-6.0) % Microbiology - Last 24 Hours (Table) 10/17/22 10:37 Blood Culture - Preliminary Blood No Growth after 72 hours 10/17/22 10:20 Blood Culture - Preliminary Blood No Growth after 72 hours Assessment and Plan (1) Small cell carcinoma Current Visit: Yes Status: Acute Priority: High Code(s): C80.1 - MALIGNANT (PRIMARY) NEOPLASM, UNSPECIFIED SNOMED Code(s): 90206138205029471 Plan: #Extensive stage small cell lung cancer - noted to have right upper lobe mass with mediastinal and right hilar lymphade nopathy - biopsy of the distal right mainstem mass consistent for small cell carcinoma positive for synaptophysin, CD56, and CAM 5.2 on IHC from bronchoscopy on 10/12/2022 - shortly after discharge, she presented with persistent and progressive dyspnea - cycle 1, day 1 of carboplatin/etoposide initiated on 10/19/2022, which she tolerated without complications - currently on cycle 1, day 2 of treatment with etoposide alone - continue scheduled ondansetron 16 mg IV in addition to ondansetron 4 mg IV every 6 hours as needed - transfuse for hemoglobin less than 7 or platelet count less than 10 and/or bleeding - cycle 1, day 3 of etoposide is currently scheduled for 10/21/2022, which was completed cycle 1 of treatment - given she has extensive stage disease, durvalumab or atezolizumab immunotherap y can be added to cycle 2 of treatment outpatient
[2022-10-20] MEDS: DEXAMETHASONE SOD PHOSPHATE 10 MG/ML 1 ML VIAL IVP SCH (14:34)
[2022-10-20] MEDS: FAMOTIDINE 20 MG/2 ML VIAL IVP SCH (14:35)
[2022-10-20] MEDS: ONDANSETRON 16 MG in SODIUM CHLORIDE 0.9% 50 ML IVPB SCH (14:41)
[2022-10-20] MEDS: ETOPOSIDE 200 MG in SODIUM CHLORIDE 0.9% 500 ML 500 ML IV SCH (15:03)
[2022-10-20] MEDS: LEVOFLOXACIN 750MG-D5W PMX 750 MG in DEXTROSE/WATER 1 150ML.BAG IVPB SCH (17:00)
[2022-10-20 17:23] LABS: Glucose,Whole Blood 155 mg/dL (70-110)
--- NOTE | 2022-10-20 18:58 | P.PN ---
Subjective Progress Note Date: 10/20/22 Principal diagnosis: Pneumonia Patient is a 61-year female with a past medical history significant for hypertension COPD and did have a [id number] of smoking, with a recent diagnosis of right perihilar mass status post biopsy suggestive of small cell carcinoma biopsy also mentions some fungal component however no BAL for fungal culture were done on 10/15/2022, patient was in the hospital with increasing shortness of breath CT angiogram of the chest with the groundglass opacity. On today's evaluation that is 10/20/2022, the patient remains to be afebrile, the patient is a breathing comfortably on room air, patient denies having any chest pain, the patient cough has decrease in density and not bringing up any sputum, no nausea no vomiting no abdominal pain or diarrhea Objective - Vital Signs Vital signs: Vital Signs Temp 97.6 F 10/20/22 08:00 Pulse 70 10/20/22 08:10 Resp 18 10/20/22 08:00 BP 162/79 10/20/22 08:00 Pulse Ox 99 10/20/22 08:00 FiO2 Intake & Output 10/19/22 10/20/22 10/20/22 18:59 06:59 18:59 Intake Total 1600 Balance 1600 Intake: Intake, IV Titration 1000 Amount Sodium Chloride 0.9% 1, 900 000 ml @ 75 mls/hr IV . [id number] [facility] Rx#:[id number] Voriconazole 200 mg In 100 Sodium Chloride 0.9% 100 ml @ 125 mls/hr IVPB Q12HR [facility] Rx#:[id number] Oral 600 Other: Voiding Method Bedside Commode # Voids 2 3 2 - Exam GENERAL DESCRIPTION: Middle-aged female lying in bed in no distress RESPIRATORY SYSTEM: Unlabored breathing , decreased breath sounds at bases HEART: S1 S2 regular rate and rhythm , ABDOMEN: Soft , no tenderness EXTREMITIES: No edema feet - Labs CBC & Chem 7: 10/20/22 06:38 10/20/22 06:38 Labs: Abnormal Lab Results - Last 24 Hours (Table) 10/19/22 10/19/22 10/19/22 Range/Units 06:27 11:32 16:52 WBC (3.8-10.6) k/uL Neutrophils # (1.3-7.7) k/uL Sodium (137-145) mmol/L BUN (7-17) mg/dL Creatinine (0.52-1.04) mg/dL Glucose (74-99) mg/dL POC Glucose (mg/dL) 245 H 153 H (70-110) mg/dL Hemoglobin A1c 8.6 H (0.0-6.0) % 10/19/22 10/20/22 10/20/22 Range/Units 20:31 06:38 06:38 WBC 18.3 H (3.8-10.6) k/uL Neutrophils # 15.9 H (1.3-7.7) k/uL Sodium 133 L (137-145) mmol/L BUN 21 H (7-17) mg/dL Creatinine 0.51 L (0.52-1.04) mg/dL Glucose 208 H (74-99) mg/dL POC Glucose (mg/dL) 178 H (70-110) mg/dL Hemoglobin A1c (0.0-6.0) % 10/20/22 Range/Units 07:38 WBC (3.8-10.6) k/uL Neutrophils # (1.3-7.7) k/uL Sodium (137-145) mmol/L BUN (7-17) mg/dL Creatinine (0.52-1.04) mg/dL Glucose (74-99) mg/dL POC Glucose (mg/dL) 231 H (70-110) mg/dL Hemoglobin A1c (0.0-6.0) % Microbiology - Last 24 Hours (Table) 10/17/22 10:37 Blood Culture - Preliminary Blood No Growth after 48 hours 10/17/22 10:20 Blood Culture - Preliminary Blood No Growth after 48 hours Assessment and Plan (1) Pneumonia Current Visit: Yes Status: Acute Code(s): J18.9 - PNEUMONIA, UNSPECIFIED ORGANISM SNOMED Code(s): 949863290 Plan: 1patient with a recent diagnosis of small cell cancer and concerning for postobstructive pneumonia now presenting to the hospital with increasing shortness of breath CT angiogram of the chest did shows groundglass opacities concerning for possible atypical pneumonia however the patient is currently not running any fever White count is elevated however the patient has been on steroids and procalcitonin is only 0.18 with a question of possible lymphangitic spread of her malignancy rather than atypical pneumonia. There was also mention of fungal component on the CT report unfortunately no BAL or fungal culture were done on bronchoscopy specimen, with a possible fungal colonization of the tumor cavity 2-patient seemed to have shown clinical improvement, the patient fungal serology is currently pending continue the patient on voriconazole, Levaquin and Augmentin continue supportive care Time with Patient: Less than 30
[2022-10-20 20:11] LABS: Glucose,Whole Blood 203 mg/dL (70-110)
[2022-10-20] MEDS: ATORVASTATIN 40 MG TAB PO SCH (20:33)
[2022-10-20] MEDS: INSULIN DETEMIR (LEVEMIR) 100 UNIT/ML SYR SQ SCH (20:42)
[2022-10-21] MEDS: MORPHINE SULFATE 4 MG/ML SYRINGE IVP PRN ×2 (05:01→20:36)
[2022-10-21 07:37] LABS: Glucose,Whole Blood 176 mg/dL (70-110)
[2022-10-21] MEDS: SYMBICORT 160-4.5 MCG INHALER INHALATION SCH ×2 (07:40→19:41)
[2022-10-21] MEDS: IPRATROPIUM-ALBUTEROL 3 ML NEB INHALATION SCH ×4 (07:40→19:40)
[2022-10-21 08:00] LABS: Basophils % (A) 0 %; Eosinophils % (A) 0 %; HCT 44.5 % (34.0-46.0); HGB 14.9 gm/dL (11.4-16.0); Lymphocytes # (A) 0.9 k/uL (1.0-4.8); Lymphocytes % (A) 7 %; MCH 30.4 pg (25.0-35.0); MCHC 33.4 g/dL (31.0-37.0); Mean Platelet Volume 10.5; Monocytes # (A) 0.4 k/uL (0-1.0); Monocytes % (A) 4 %; Neutrophils # (A) 10.6 k/uL (1.3-7.7); Neutrophils % (A) 88 %; Platelet Count 124 k/uL (150-450); RBC 4.89 m/uL (3.80-5.40); WBC 12.1 k/uL (3.8-10.6)
[2022-10-21 08:20] LABS: African American GFR (CKD) >90 (>60 ml/min/1.73 sqM); Anion Gap 3 mmol/L; Blood Urea Nitrogen 18 mg/dL (7-17); Calcium 8.2 mg/dL (8.4-10.2); Carbon Dioxide 33 mmol/L (22-30); Chloride 95 mmol/L (98-107); Glucose 188 mg/dL (74-99); Non-African American GFR(CKD) >90 (>60 ml/min/1.73 sqM); Potassium 4.6 mmol/L (3.5-5.1); Sodium 131 mmol/L (137-145)
[2022-10-21] MEDS: METOPROLOL TARTRATE 25 MG TAB PO SCH (08:24)
[2022-10-21] MEDS: DAPAGLIFLOZIN PROPANEDIOL 5 MG TABLET PO SCH (08:24)
[2022-10-21] MEDS: AMOXIC-POT CLAV 875-125MG 1 EACH TAB PO SCH ×2 (08:25→20:35)
[2022-10-21] MEDS: SERTRALINE 100 MG TAB PO SCH ×2 (08:25→20:35)
[2022-10-21] MEDS: NICOTINE 21MG/24HR PATCH TRANSDERM SCH (08:25)
[2022-10-21] MEDS: INSULIN ASPART (NovoLOG) 100 UNIT/ML VIAL SQ SCH ×4 (08:26→20:35)
[2022-10-21] MEDS: ENOXAPARIN 40 MG/0.4 ML SYRINGE SQ SCH (08:26)
[2022-10-21] MEDS: VORICONAZOLE 200 MG in SODIUM CHLORIDE 0.9% 100 ML IVPB SCH ×2 (09:04→20:35)
--- NOTE | 2022-10-21 10:30 | P.PN ---
Subjective Progress Note Date: 10/21/22 On today's evaluation of 10/18/2022, the patient is being seen for a follow-up. She is feeling slightly better compared to yesterday. A repeat computed tomography scan of the chest was done and showed no evidence of any pulmonary embolism. Note that the CAT scan showed new ground glass opacities bilaterally consistent with a pneumonia which could be potentially an atypical pneumonia. At the same time, there was some improvement in aeration of the right upper lobe consolidation and there is some post obstructive changes in the right upper lobe still. There is also similar right pulmonary hilar and right upper lobe mass and mediastinal lymphadenopathy. There is significant narrowing of the right upper lobe bronchus and the right mainstem bronchus. The diagnosis consistent with small cell lung cancer. There is also fungal element it was noted within the biopsy which is obviously raises the concern for an ongoing fungal infection in combination with underlying malignancy. The patient is showing a white cell count of 15.7 with hemoglobin 14.8. Sodium is at 133, BUN is at 80 with a cre atinine of 0.4. Pro-calcitonin level was at 0.18. The viruses and the viral screen was negative. I am evaluating this patient today 10/19/2022 in follow-up on the oncology unit. the patient is currently sitting up in bed, on 2 L nasal cannula, in no acute distress. She is feeling a bit stronger today. she was started on voriconazole for her positive fungal culture from bronchoscopy. she is receiving empiric Levaquin and Augmentin for her potential postobstructive pneumonia. she is afebrile. blood cultures continue to show no growth at 48 hours. infectious disease is following. She is scheduled to start chemotherapy treatment today for her small cell lung cancer with combination of Carboplatin and Etoposide. this treatment is being directed by oncology. patient's CBC from today shows some leukocytosis with a WBC count of 16.4, hemoglobin of 14.6, hematocrit 43.6, platelets 139,000. Her BMP from today shows a sodium of 132, potassium 4.4, chloride 100, serum CO2 26, BUN 20, creatinine 0.44, glucose 229. an MRI of the brain to rule out metastasis to the brain is ordered and pending.she is receiving DVT prophylaxis in the form of Lanoxin. She is receiving GI prophylaxis form of Pepcid. The patient is seen today 10/20/2022 in follow-up on the oncology unit. She is awake and alert in no acute distress. Sitting up in bed. Maintaining good O2 saturations in the 90s on room air. She's afebrile. Hemodynamically stable. She is breathing easier today compared to yesterday. She does have a left upper extremity PICC line in place. She remains on voriconazole. She is also on antibiotics in the form of Augmentin and Levaquin. Continued on bronchodilators. Continued on Decadron. NicoDerm patch in place. White count 18.3. Hemoglobin 14.6. Platelets 155. Sodium 133. Potassium 4.3. Bicarb 28. BUN 21. Creatinine 0.51. Glucose 208. Calcium 8.4. Bone scan was positive for abnormal increased radiotracer uptake suggesting osseous metastatic disease corresponded to several lesions in the bilateral ribs at varying levels along the additional scattered lesions throughout the thoracic or lumbar spine with more prominent uptake at roughly L1 level corresponding to level of mild height loss and possible acute/early subacute fracture. Subtle areas in the sternum were noted with less well corresponding lesion seen on CT. Subtle lesions in the bilateral humeri are present. Subtle osseous metastatic disease to the calvarium with at least 2 small foci of increased radiotracer uptake. She received carboplatin and etoposide yesterday. The patient is seen today 10/21/2022 in follow-up on the oncology unit. She remains on oxygen at 2 L/m per nasal cannula. O2 saturations 98-100%. No worsening shortness of breath, cough or congestion. No hemoptysis. Blood cultures revealed no growth. White count 12.1. Hemoglobin 14.9. Platelets 124. Sodium 131. Potassium 4.6. Bicarb 33. BUN 18. Creatinine 0.53. Glucose 188. The plan is for 3 doses Etoposide. Today's day #3. She did receive a dose of carboplatin as well. Appetite is fair. Remains in a positive balance. She is continued on Symbicort, DuoNeb inhalations, Decadron. Antibiotics in the form of Augmentin and Levaquin. Remains on voriconazole. Aspergillus antibody in histoplasma antibodies pending. NicoDerm patch in place. Objective - Vital Signs Vital signs: Vital Signs Temp 98.3 F 10/21/22 08:00 Pulse 82 10/21/22 08:00 Resp 18 10/21/22 08:00 BP 156/80 10/21/22 08:00 Pulse Ox 94 L 10/21/22 08:00 FiO2 Intake & Output 10/20/22 10/21/22 10/21/22 18:59 06:59 18:59 Intake Total 360 1600 Output Total 600 Balance -240 1600 Intake: Intake, IV Titration 1000 Amount Sodium Chloride 0.9% 1, 900 000 ml @ 75 mls/hr IV . [id number] [facility] Rx#:[id number] Voriconazole 200 mg In 100 Sodium Chloride 0.9% 100 ml @ 125 mls/hr IVPB Q12HR [facility] Rx#:[id number] Oral 360 600 Output: Urine 600 Other: Voiding Method Bedside Commode Bedside Commode # Voids 4 3 - Exam GENERAL EXAM: Alert, pleasant 61-year-old female, on 2 L nasal cannula, fairly c omfortable in no apparent distress. HEAD: Normocephalic. EYES: Normal reaction of pupils, equal size. NOSE: Clear with pink turbinates. THROAT: No erythema or exudates. NECK: No masses, no JVD. CHEST: No chest wall deformity. LUNGS: Equal air entry with bilateral scattered rhonchi. CVS: S1 and S2 normal with no audible murmur, regular rhythm. ABDOMEN: No hepatosplenomegaly, normal bowel sounds, no guarding or rigidity. SPINE: No scoliosis or deformity SKIN: No rashes CENTRAL NERVOUS SYSTEM: No focal deficits, tone is normal in all 4 extremities. EXTREMITIES: There is no peripheral edema. No clubbing, no cyanosis. Peripheral pulses are intact. - Labs CBC & Chem 7: 10/21/22 07:24 10/21/22 07:24 Labs: Abnormal Lab Results - Last 24 Hours (Table) 10/20/22 10/20/22 10/20/22 Range/Units 11:31 17:17 20:09 WBC (3.8-10.6) k/uL Plt Count (150-450) k/uL Neutrophils # (1.3-7.7) k/uL Lymphocytes # (1.0-4.8) k/uL Sodium (137-145) mmol/L Chloride (98-107) mmol/L Carbon Dioxide (22-30) mmol/L BUN (7-17) mg/dL Glucose (74-99) mg/dL POC Glucose (mg/dL) 245 H 155 H 203 H (70-110) mg/dL Calcium (8.4-10.2) mg/dL 10/21/22 10/21/22 10/21/22 Range/Units 07:17 07:24 07:24 WBC 12.1 H (3.8-10.6) k/uL Plt Count 124 L (150-450) k/uL Neutrophils # 10.6 H (1.3-7.7) k/uL Lymphocytes # 0.9 L (1.0-4.8) k/uL Sodium 131 L (137-145) mmol/L Chloride 95 L (98-107) mmol/L Carbon Dioxide 33 H (22-30) mmol/L BUN 18 H (7-17) mg/dL Glucose 188 H (74-99) mg/dL POC Glucose (mg/dL) 176 H (70-110) mg/dL Calcium 8.2 L (8.4-10.2) mg/dL Microbiology - Last 24 Hours (Table) 10/17/22 10:37 Blood Culture - Preliminary Blood No Growth after 72 hours 10/17/22 10:20 Blood Culture - Preliminary Blood No Growth after 72 hours Assessment and Plan Assessment: Acute on chronic dyspnea, likely secondary to a component of acute exacerbation of COPD. The patient has also background lung cancer with obstruction of the right upper lobe bronchus due to endobronchial tumor. The patient was [facility] home recently on a course of Augmentin and prednisone burst taper. There is development of acute bilateral vague pulmonary infiltrates Consider atypical pneumonia. Consider fungal pneumonia especially the patient's biopsy showed fungal elements in combination with tumor. Initiated on Augmentin, Levaquin and voriconazole. Aspergillus antibodies and histoplasma antibodies pending. Metastatic small cell lung cancer. Bone scan was positive for abnormal increased radiotracer uptake suggesting osseous metastatic disease corresponded to several lesions in the bilateral ribs at varying levels along the additional scattered lesions throughout the thoracic or lumbar spine with more prominent uptake at roughly L1 level corresponding to level of mild height loss and possible acute/early subacute fracture. Subtle areas in the sternum were noted with less well corresponding lesion seen on CT. Subtle lesions in the bilateral humeri are present. Subtle osseous metastatic disease to the calvarium with at least 2 small foci of increased radiotracer uptake. She received carboplatin 10/19/2022. She is receiving 3 doses of etoposide as well. Ongoing tobacco use with nicotine addiction. History of diabetes mellitus. History of CVA. History of hypertension. History of hyperlipidemia. History of depression. Multiple previous surgeries including colon resection, appendectomy, section, cholecystectomy, and hysterectomy. Plan: The patient was seen and evaluated Labs and medications reviewed She did receive carboplatin and etoposide Currently receiving Decadron She continues on voriconazole, Augmentin and Levaquin NicoDerm patch in place Lovenox for DVT prophylaxis Possible discharge in the a.m. We will continue to follow I have personally seen and examined the patient, performed the documentation and the assessment and plan as written. Number of minutes spent on the visit: 10.
[2022-10-21 11:13] LABS: Glucose,Whole Blood 191 mg/dL (70-110)
--- NOTE | 2022-10-21 12:10 | P.PN ---
Subjective Progress Note Date: 10/21/22 Hospital Course: 61-year-old female with hypertension, dyslipidemia, and nicotine dependence the who was recently hospitalized here from 10/11/22 through 10/13/22 for primary lung malignancy with metastatic disease and postobstructive pneumonia. She had follow-up with Dr. Sandoval on 10/17/22 and he directed her to come to the emergency department. On arrival her room air pulse ox is 90%, the remainder of her labs within normal limits. Initial laboratory analysis showed white blood cell count of 15.5, platelets 119, sodium 1:30, and glucose 430. Initial chest x-ray showed decreased appearance of the focal opacifications in the right upper lobe extending towards the hilum, bibasilar patchy increased airspace opacities concerning for pneumonia. In the ER she was given a dose of Levaquin. Patient had been taking Augmentin on an outpatient basis. ID, oncology, pulmonology following. Bronchoscopy/biopsy on 10/13/22 confirmed small cell carcinoma as well as multiple fungal organisms. Patient underwent 2 doses of chemotherapy inpatient. MRI brain and bone scan for staging. For postobstructive pneumonia, patient on antifungals as well as IV levofloxacin and Augmentin. Bone scan showing osseous metastatic disease. Subjective: Patient seen and examined at bedside. No acute events overnight. He claims that her cough has improved. Shortness of breath has also improved. Continues to have some epigastric lower sternal chest pain with cough. She denies any nausea, vomiting, diarrhea, constipation, abdominal pain or urinary complaints. Pertinent positives and negatives as discussed above, a complete review of systems was performed and all other systems are negative. Vitals Signs Reviewed. General: nontoxic, no distress, appears at stated age Derm: warm, dry Head: atraumatic, normocephalic, symmetric Eyes: EOMI, no lid lag, anicteric sclera Mouth: no lip lesion, mucus membranes moist Cardiovascular: S1S2 reg, no murmur Lungs: Reduced breath sounds in the right upper lobe, no accessory muscle use, supplemental oxygen Abdominal: soft, nontender to palpation, no guarding, no appreciable organomegaly Ext: no gross muscle atrophy, no edema, no contractures Neuro: CN II-XI grossly intact, no focal neuro deficits Psych: Alert, oriented, appropriate affect Assessment and Plan: Acute hypoxic respiratory failure COPD with acute exacerabtion Postobstructive pneumonia Fungal pneumonia 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 - IV antibiotics, bronchodilators - wean O2 - Pulmonology, ID following -On antifungal -Remains on dexamethasone for chemotherapy, methylprednisone discontinued - Legionella negative, histoplasmosis, Aspergillus pending - Oncology following, had 2 round of chemotherapy, 1 more rounds pending - MRI brain pending - Bone scan shows osseous metastatic disease Mild Hyponatremia, due to decreasd oral intake improving - IVF DM 2 with hyperglycemia uncontrolled - levemir changed to 25 units at night - SSI increased to medium scale - likely elevated BS in the setting of steroids - on jardiance - hold ozempic - check A1C 8.2% on 10/11/2022 Recent tobacco abuse - resume nicotine patch HTN HLD CVA/TIA Subacute left rib fractures DVT ppx: lovenox Code status: full code Anticipated discharge place: home with home care, including oxygen as well as nebulizer Anticipated discharge time: likely tomorrow Objective - Vital Signs Vital signs: Vital Signs Temp 98.3 F 10/21/22 08:00 Pulse 76 10/21/22 11:15 Resp 18 10/21/22 08:00 BP 156/80 10/21/22 08:00 Pulse Ox 94 L 10/21/22 08:00 FiO2 Intake & Output 10/20/22 10/21/22 10/21/22 18:59 06:59 18:59 Intake Total 360 1600 Output Total 600 Balance -240 1600 Intake: Intake, IV Titration 1000 Amount Sodium Chloride 0.9% 1, 900 000 ml @ 75 mls/hr IV . [id number] [facility] Rx#:[id number] Voriconazole 200 mg In 100 Sodium Chloride 0.9% 100 ml @ 125 mls/hr IVPB Q12HR [facility] Rx#:[id number] Oral 360 600 Output: Urine 600 Other: Voiding Method Bedside Commode Bedside Commode # Voids 4 3 - Labs CBC & Chem 7: 10/21/22 07:24 10/21/22 07:24 Labs: Abnormal Lab Results - Last 24 Hours (Table) 10/20/22 10/20/22 10/21/22 Range/Units 17:17 20:09 07:17 WBC (3.8-10.6) k/uL Plt Count (150-450) k/uL Neutrophils # (1.3-7.7) k/uL Lymphocytes # (1.0-4.8) k/uL Sodium (137-145) mmol/L Chloride (98-107) mmol/L Carbon Dioxide (22-30) mmol/L BUN (7-17) mg/dL Glucose (74-99) mg/dL POC Glucose (mg/dL) 155 H 203 H 176 H (70-110) mg/dL Calcium (8.4-10.2) mg/dL 10/21/22 10/21/22 10/21/22 Range/Units 07:24 07:24 11:07 WBC 12.1 H (3.8-10.6) k/uL Plt Count 124 L (150-450) k/uL Neutrophils # 10.6 H (1.3-7.7) k/uL Lymphocytes # 0.9 L (1.0-4.8) k/uL Sodium 131 L (137-145) mmol/L Chloride 95 L (98-107) mmol/L Carbon Dioxide 33 H (22-30) mmol/L BUN 18 H (7-17) mg/dL Glucose 188 H (74-99) mg/dL POC Glucose (mg/dL) 191 H (70-110) mg/dL Calcium 8.2 L (8.4-10.2) mg/dL Microbiology - Last 24 Hours (Table) 10/17/22 10:37 Blood Culture - Preliminary Blood No Growth after 72 hours 10/17/22 10:20 Blood Culture - Preliminary Blood No Growth after 72 hours
--- NOTE | 2022-10-21 13:20 | P.PN ---
Subjective Progress Note Date: 10/21/22 Principal diagnosis: Extensive stage small cell lung cancer - Currently on day 3 of cycle 1 carboplatin/etoposide for management of extensive stage small cell lung cancer - No acute events overnight - She continues to note progressive improvement in her breathing since initiatin g treatment. She denies any nausea, vomiting, or diarrhea Objective - Vital Signs Vital signs: Vital Signs Temp 98.2 F 10/21/22 12:00 Pulse 69 10/21/22 12:00 Resp 18 10/21/22 12:00 BP 156/80 10/21/22 12:00 Pulse Ox 98 10/21/22 12:00 FiO2 Intake & Output 10/20/22 10/21/22 10/21/22 18:59 06:59 18:59 Intake Total 360 1600 Output Total 600 Balance -240 1600 Intake: Intake, IV Titration 1000 Amount Sodium Chloride 0.9% 1, 900 000 ml @ 75 mls/hr IV . [id number] ANTHONY Rx#:[id number] Voriconazole 200 mg In 100 Sodium Chloride 0.9% 100 ml @ 125 mls/hr IVPB Q12HR ANTHONY Rx#:[id number] Oral 360 600 Output: Urine 600 Other: Voiding Method Bedside Commode Bedside Commode Bedside Commode # Voids 4 3 - Constitutional General appearance: Present: cooperative, no acute distress - Respiratory Respiratory: right: wheezing ( expiratory wheezing noted in the right midlung field with cough on inspiration), left: CTA - Cardiovascular Rhythm: regular - Gastrointestinal General gastrointestinal: Present: normal bowel sounds, soft. Absent: distended, tenderness - Integumentary Integumentary: Absent: rash - Neurologic Neurologic: Present: CNII-XII intact - Labs CBC & Chem 7: 10/21/22 07:24 10/21/22 07:24 Labs: Abnormal Lab Results - Last 24 Hours (Table) 10/20/22 10/20/22 10/21/22 Range/Units 17:17 20:09 07:17 WBC (3.8-10.6) k/uL Plt Count (150-450) k/uL Neutrophils # (1.3-7.7) k/uL Lymphocytes # (1.0-4.8) k/uL Sodium (137-145) mmol/L Chloride (98-107) mmol/L Carbon Dioxide (22-30) mmol/L BUN (7-17) mg/dL Glucose (74-99) mg/dL POC Glucose (mg/dL) 155 H 203 H 176 H (70-110) mg/dL Calcium (8.4-10.2) mg/dL 10/21/22 10/21/22 10/21/22 Range/Units 07:24 07:24 11:07 WBC 12.1 H (3.8-10.6) k/uL Plt Count 124 L (150-450) k/uL Neutrophils # 10.6 H (1.3-7.7) k/uL Lymphocytes # 0.9 L (1.0-4.8) k/uL Sodium 131 L (137-145) mmol/L Chloride 95 L (98-107) mmol/L Carbon Dioxide 33 H (22-30) mmol/L BUN 18 H (7-17) mg/dL Glucose 188 H (74-99) mg/dL POC Glucose (mg/dL) 191 H (70-110) mg/dL Calcium 8.2 L (8.4-10.2) mg/dL Microbiology - Last 24 Hours (Table) 10/17/22 10:37 Blood Culture - Preliminary Blood No Growth after 96 hours 10/17/22 10:20 Blood Culture - Preliminary Blood No Growth after 96 hours Assessment and Plan (1) Small cell carcinoma Current Visit: Yes Status: Acute Priority: High Code(s): C80.1 - MALIGNANT (PRIMARY) NEOPLASM, UNSPECIFIED SNOMED Code(s): [id number] Plan: #Extensive stage small cell lung cancer - noted to have right upper lobe mass with mediastinal and right hilar lymphadenopathy - biopsy of the distal right mainstem mass consistent for small cell carcinoma positive for synaptophysin, CD56, and CAM 5.2 on IHC from bronchoscopy on 10/12/2022 - shortly after discharge, she presented with persistent and progressive dyspnea - cycle 1, day 1 of carboplatin/etoposide initiated on 10/19/2022, which she tolerated without complications - currently on cycle 1, day 3 of treatment with etoposide alone - continue scheduled ondansetron 16 mg IV in addition to ondansetron 4 mg IV every 6 hours as needed - transfuse for hemoglobin less than 7 or platelet count less than 10 and/or bleeding - cycle 1, day 3 of etoposide is currently scheduled for 10/21/2022, which was completed cycle 1 of treatment - given she has extensive stage disease, durvalumab or atezolizumab immunotherapy can be added to cycle 2 of treatment outpatient - she will need MRI of the brain to complete staging. We will have to confirm if coils placed previously for CVA are MRI compatible
[2022-10-21] MEDS: FAMOTIDINE 20 MG/2 ML VIAL IVP SCH (14:00)
[2022-10-21] MEDS: ONDANSETRON 16 MG in SODIUM CHLORIDE 0.9% 50 ML IVPB SCH (14:01)
[2022-10-21] MEDS: DEXAMETHASONE SOD PHOSPHATE 10 MG/ML 1 ML VIAL IVP SCH (14:01)
[2022-10-21] MEDS: ETOPOSIDE 200 MG in SODIUM CHLORIDE 0.9% 500 ML 500 ML IV SCH (14:57)
--- NOTE | 2022-10-21 15:55 | P.PN ---
Subjective Progress Note Date: 10/21/22 Principal diagnosis: Pneumonia Patient is a 61-year female with a past medical history significant for hypertension COPD and did have a [id number] of smoking, with a recent diagnosis of right perihilar mass status post biopsy suggestive of small cell carcinoma biopsy also mentions some fungal component however no BAL for fungal culture were done on 10/15/2022, patient was in the hospital with increasing shortness of breath CT angiogram of the chest with the groundglass opacity. On today's evaluation that is 10/21/2022, the patient continues to be afebrile, the patient is a breathing comfortably on room air, patient denies having any chest pain, the patient cough has decrease in density and mostly dry in nature, the patient denies having any nausea no vomiting no abdominal pain no diarrhea and overall feeling better Objective - Vital Signs Vital signs: Vital Signs Temp 98.2 F 10/21/22 12:00 Pulse 69 10/21/22 12:00 Resp 18 10/21/22 12:00 BP 156/80 10/21/22 12:00 Pulse Ox 98 10/21/22 12:00 FiO2 Intake & Output 10/20/22 10/21/22 10/21/22 18:59 06:59 18:59 Intake Total 360 1600 Output Total 600 Balance -240 1600 Intake: Intake, IV Titration 1000 Amount Sodium Chloride 0.9% 1, 900 000 ml @ 75 mls/hr IV . [id number] ANTHONY Rx#:[id number] Voriconazole 200 mg In 100 Sodium Chloride 0.9% 100 ml @ 125 mls/hr IVPB Q12HR ANTHONY Rx#:[id number] Oral 360 600 Output: Urine 600 Other: Voiding Method Bedside Commode Bedside Commode Bedside Commode # Voids 4 3 - Exam GENERAL DESCRIPTION: Middle-aged female lying in bed in no distress RESPIRATORY SYSTEM: Unlabored breathing , decreased breath sounds at bases HEART: S1 S2 regular rate and rhythm , ABDOMEN: Soft , no tenderness EXTREMITIES: No edema feet - Labs CBC & Chem 7: 10/21/22 07:24 10/21/22 07:24 Labs: Abnormal Lab Results - Last 24 Hours (Table) 10/20/22 10/20/22 10/21/22 Range/Units 17:17 20:09 07:17 WBC (3.8-10.6) k/uL Plt Count (150-450) k/uL Neutrophils # (1.3-7.7) k/uL Lymphocytes # (1.0-4.8) k/uL Sodium (137-145) mmol/L Chloride (98-107) mmol/L Carbon Dioxide (22-30) mmol/L BUN (7-17) mg/dL Glucose (74-99) mg/dL POC Glucose (mg/dL) 155 H 203 H 176 H (70-110) mg/dL Calcium (8.4-10.2) mg/dL 10/21/22 10/21/22 10/21/22 Range/Units 07:24 07:24 11:07 WBC 12.1 H (3.8-10.6) k/uL Plt Count 124 L (150-450) k/uL Neutrophils # 10.6 H (1.3-7.7) k/uL Lymphocytes # 0.9 L (1.0-4.8) k/uL Sodium 131 L (137-145) mmol/L Chloride 95 L (98-107) mmol/L Carbon Dioxide 33 H (22-30) mmol/L BUN 18 H (7-17) mg/dL Glucose 188 H (74-99) mg/dL POC Glucose (mg/dL) 191 H (70-110) mg/dL Calcium 8.2 L (8.4-10.2) mg/dL Microbiology - Last 24 Hours (Table) 10/17/22 10:37 Blood Culture - Preliminary Blood No Growth after 96 hours 10/17/22 10:20 Blood Culture - Preliminary Blood No Growth after 96 hours Assessment and Plan (1) Pneumonia Current Visit: Yes Status: Acute Code(s): J18.9 - PNEUMONIA, UNSPECIFIED ORGANISM SNOMED Code(s): 012224307 Plan: 1patient with a recent diagnosis of small cell cancer and concerning for postobstructive pneumonia now presenting to the hospital with increasing shortness of breath CT angiogram of the chest did shows groundglass opacities concerning for possible atypical pneumonia however the patient is currently not running any fever White count is elevated however the patient has been on steroids and procalcitonin is only 0.18 with a question of possible lymphangitic spread of her malignancy rather than atypical pneumonia. There was also mention of fungal component on the CT report unfortunately no BAL or fungal culture were done on bronchoscopy specimen, with a possible fungal colonization of the tumor cavity 2-patient has shown clinical improvement, the patient fungal serology is still pending 3- patient to continue the patient on voriconazole, Levaquin and Augmentin continue supportive care Family the bedside questions concerned were answered Time with Patient: Less than 30
[2022-10-21] MEDS: SODIUM CHLORIDE 0.9% 1,000 ML IV SCH ×2 (16:16→22:02)
[2022-10-21 17:20] LABS: Glucose,Whole Blood 323 mg/dL (70-110)
[2022-10-21] MEDS: LEVOFLOXACIN 750MG-D5W PMX 750 MG in DEXTROSE/WATER 1 150ML.BAG IVPB SCH (17:48)
[2022-10-21 20:16] LABS: Glucose,Whole Blood 331 mg/dL (70-110)
[2022-10-21] MEDS: INSULIN DETEMIR (LEVEMIR) 100 UNIT/ML SYR SQ SCH (20:35)
[2022-10-21] MEDS: ATORVASTATIN 40 MG TAB PO SCH (20:35)
[2022-10-22] MEDS: MORPHINE SULFATE 4 MG/ML SYRINGE IVP PRN (02:39)
[2022-10-22 07:09] LABS: Glucose,Whole Blood 278 mg/dL (70-110)
[2022-10-22] MEDS: SYMBICORT 160-4.5 MCG INHALER INHALATION SCH (07:54)
[2022-10-22] MEDS: IPRATROPIUM-ALBUTEROL 3 ML NEB INHALATION SCH ×2 (07:54→11:27)
[2022-10-22] MEDS: AMOXIC-POT CLAV 875-125MG 1 EACH TAB PO SCH (08:49)
[2022-10-22] MEDS: SERTRALINE 100 MG TAB PO SCH (08:49)
[2022-10-22] MEDS: METOPROLOL TARTRATE 25 MG TAB PO SCH (08:49)
[2022-10-22] MEDS: INSULIN ASPART (NovoLOG) 100 UNIT/ML VIAL SQ SCH ×2 (08:49→12:14)
[2022-10-22] MEDS: ENOXAPARIN 40 MG/0.4 ML SYRINGE SQ SCH (08:49)
[2022-10-22] MEDS: HYDROcodone/APAP 5-325MG 1 EACH TAB PO PRN (08:49)
[2022-10-22] MEDS: VORICONAZOLE 200 MG in SODIUM CHLORIDE 0.9% 100 ML IVPB SCH (08:51)
[2022-10-22] MEDS: DAPAGLIFLOZIN PROPANEDIOL 5 MG TABLET PO SCH (08:51)
[2022-10-22] MEDS: NICOTINE 21MG/24HR PATCH TRANSDERM SCH (08:52)
[2022-10-22] MEDS ORDERED: amLODIPine 5 MG TAB PO SCH (09:00)
--- NOTE | 2022-10-22 10:54 | P.PN ---
Subjective Progress Note Date: 10/22/22 Principal diagnosis: small cell lung cancer, suspect postobstructive obstructive pneumonia, positive fungal cultures on bronchoscopy On today's evaluation of 10/18/2022, the patient is being seen for a follow-up. She is feeling slightly better compared to yesterday. A repeat computed tomography scan of the chest was done and showed no evidence of any pulmonary embolism. Note that the CAT scan showed new ground glass opacities bilaterally consistent with a pneumonia which could be potentially an atypical pneumonia. At the same time, there was some improvement in aeration of the right upper lobe consolidation and there is some post obstructive changes in the right upper lobe still. There is also similar right pulmonary hilar and right upper lobe mass and mediastinal lymphadenopathy. There is significant narrowing of the right upper lobe bronchus and the right mainstem bronchus. The diagnosis consistent with small cell lung cancer. There is also fungal element it was noted within the biopsy which is obviously raises the concern for an ongoing fungal infection in combination with underlying malignancy. The patient is showing a white cell count of 15.7 with hemoglobin 14.8. Sodium is at 133, BUN is at 80 with a creatinine of 0.4. Pro-calcitonin level was at 0.18. The viruses and the viral screen was negative. I am evaluating this patient today 10/19/2022 in follow-up on the oncology unit. the patient is currently sitting up in bed, on 2 L nasal cannula, in no acute distress. She is feeling a bit stronger today. she was started on voriconazole for her positive fungal culture from bronchoscopy. she is receiving empiric Levaquin and Augmentin for her potential postobstructive pneumonia. she is afebrile. blood cultures continue to show no growth at 48 hours. infectious disease is following. She is scheduled to start chemotherapy treatment today for her small cell lung cancer with combination of Carboplatin and Etoposide. this treatment is being directed by oncology. patient's CBC from today shows some leukocytosis with a WBC count of 16.4, hemoglobin of 14.6, hematocrit 43.6, platelets 139,000. Her BMP from today shows a sodium of 132, potassium 4.4, chloride 100, serum CO2 26, BUN 20, creatinine 0.44, glucose 229. an MRI of the brain to rule out metastasis to the brain is ordered and pending.she is receiving DVT prophylaxis in the form of Lanoxin. She is receiving GI prophylaxis form of Pepcid. The patient is seen today 10/20/2022 in follow-up on the oncology unit. She is awake and alert in no acute distress. Sitting up in bed. Maintaining good O2 saturations in the 90s on room air. She's afebrile. Hemodynamically stable. She is breathing easier today compared to yesterday. She does have a left upper extremity PICC line in place. She remains on voriconazole. She is also on antibiotics in the form of Augmentin and Levaquin. Continued on bronchodilators. Continued on Decadron. NicoDerm patch in place. White count 18.3. Hemoglobin 14.6. Platelets 155. Sodium 133. Potassium 4.3. Bicarb 28. BUN 21. Creatinine 0.51. Glucose 208. Calcium 8.4. Bone scan was positive for abnormal increased radiotracer uptake suggesting osseous metastatic disease corresponded to several lesions in the bilateral ribs at varying levels along the additional scattered lesions throughout the thoracic or lumbar spine with more prominent uptake at roughly L1 level corresponding to level of mild height loss and possible acute/early subacute fracture. Subtle areas in the sternum were noted with less well corresponding lesion seen on CT. Subtle lesions in the bilateral humeri are present. Subtle osseous metastatic disease to the calvarium with at least 2 small foci of increased radiotracer uptake. She received carboplatin and etoposide yesterday. The patient is seen today 10/21/2022 in follow-up on the oncology unit. She remains on oxygen at 2 L/m per nasal cannula. O2 saturations 98-100%. No worsening shortness of breath, cough or congestion. No hemoptysis. Blood cultures revealed no growth. White count 12.1. Hemoglobin 14.9. Platelets 124. Sodium 131. Potassium 4.6. Bicarb 33. BUN 18. Creatinine 0.53. Glucose 188. The plan is for 3 doses Etoposide. Today's day #3. She did receive a dose of carboplatin as well. Appetite is fair. Remains in a positive balance. She is continued on Symbicort, DuoNeb inhalations, Decadron. Antibiotics in the form of Augmentin and Levaquin. Remains on voriconazole. Aspergillus antibody in histoplasma antibodies pending. NicoDerm patch in p lace. I will reevaluate this patient today 10/22/2022 in follow-up on oncology unit. She is currently sitting up in bed, on 4 L nasal cannula, in no acute distress. Patient did receive 3 doses Etoposide and one Dose of Carboplatin. She denies any significant pulmonary complaints. No new chest x-ray today. She continues bronchodilators, Symbicort inhaler. Blood cultures remain negative at 96 hours. She remains afebrile. No new labs today. She continues on empiric Augmentin and Levaquin. Patient's Aspergillus and histoplasma antibodies are still pending. No fungal cultures were taken. She remains on Voriconazole. Infectious diseases is on the case. Patient's appetite is okay. Normal saline infusing at 75 mL per hour. Vital signs are stable. Objective - Vital Signs Vital signs: Vital Signs Temp 98.4 F 10/22/22 07:09 Pulse 80 10/22/22 09:24 Resp 16 10/22/22 07:09 BP 168/80 10/22/22 07:09 Pulse Ox 97 10/22/22 09:24 FiO2 Intake & Output 10/21/22 10/22/22 10/22/22 18:59 06:59 18:59 Intake Total 240 1590 Balance 240 1590 Intake: Intake, IV Titration 1000 Amount Sodium Chloride 0.9% 1, 900 000 ml @ 75 mls/hr IV . [id number] ANTHONY Rx#:[id number] Voriconazole 200 mg In 100 Sodium Chloride 0.9% 100 ml @ 125 mls/hr IVPB Q12HR ANTHONY Rx#:[id number] Oral 240 590 Other: Voiding Method Bedside Commode Bedside Commode # Voids 600 2 - Exam GENERAL EXAM: Alert, very pleasant 61-year-old female, comfortable in no apparent distress. HEAD: Normocephalic. EYES: Normal reaction of pupils, equal size. NOSE: Clear with pink turbinates. THROAT: No erythema or exudates. NECK: No masses, no JVD. CHEST: No chest wall deformity. LUNGS: equal air entry with scattered rhonchi throughout and diminished breath sounds on the right. No crackles or wheezes. on 4 L nasal cannula. No conversational dyspnea or accessory muscle use. CVS: S1 and S2 normal with no audible murmur, regular rhythm. ABDOMEN: No hepatosplenomegaly, normal bowel sounds, no guarding or rigidity. SPINE: No scoliosis or deformity SKIN: No rashes CENTRAL NERVOUS SYSTEM: No focal deficits, tone is normal in all 4 extremities. EXTREMITIES: There is no peripheral edema. No clubbing, no cyanosis. Peripheral pulses are intact. multiple - Labs CBC & Chem 7: 10/21/22 07:24 10/21/22 07:24 Labs: Abnormal Lab Results - Last 24 Hours (Table) 10/21/22 10/21/22 10/21/22 Range/Units 11:07 17:18 20:14 POC Glucose (mg/dL) 191 H 323 H 331 H (70-110) mg/dL 10/22/22 Range/Units 07:07 POC Glucose (mg/dL) 278 H (70-110) mg/dL Microbiology - Last 24 Hours (Table) 10/17/22 10:37 Blood Culture - Preliminary Blood No Growth after 96 hours 10/17/22 10:20 Blood Culture - Preliminary Blood No Growth after 96 hours Assessment and Plan Assessment: acute on chronic dyspnea, likely secondary to a component of COPD exacerbation. The patient has also background lung cancer with obstruction of the right upper lobe bronchus due to endobronchial tumor. The patient was discharged home recently on a course of Augmentin and prednisone burst taper. there is development of acute bilateral vague pulmonary infiltrates Consider atypical pneumonia. Consider fungal pneumonia especially the patient's biopsy showed fu ngal elements in combination with tumor. Patient continues on empiric Augmentin, Levaquin, and Voriconazole. Aspergillus and histoplasma antibodies are pending. Metastatic small cell lung cancer. Bone scan was positive for abnormal increased radiotracer uptake suggesting osseous metastatic disease corresponded to several lesions in the bilateral ribs at varying levels along the additional scattered lesions throughout the thoracic or lumbar spine with more prominent uptake at roughly L1 level corresponding to level of mild height loss and possible acute/early subacute fracture. Subtle areas in the sternum were noted with less well corresponding lesion seen on CT. Subtle lesions in the bilateral humeri are present. Subtle osseous metastatic disease to the calvarium with at least 2 small foci of increased radiotracer uptake. She received one dose carboplatin, and 3 doses of etoposide as well. Acute COPD exacerbation, complicated by right hilar mass, and postobstructive pneumonia. consider superinfection with various agents including atypical bacterial versus fungi. Ongoing tobacco use with nicotine addiction. History of diabetes mellitus. History of CVA. History of hypertension. History of hyperlipidemia. History of depression. Multiple previous surgeries including colon resection, appendectomy, section, cholecystectomy, and hysterectomy. Plan Patient's medications and labs reviewed. pending results for Aspergillus and histoplasma antibodies Empiric antifungal therapy to be directed by infectious disease on discharge. Continue empiric Augmentin and Levaquin continue bronchodilators, Symbicort inhaler Patient did receive one dose of carboplatin and 3 doses of etoposide. Future treatments directed by oncology. From a pulmonary standpoint, patient is cleared for discharge. I have personally seen and examined the patient, performed the documentation and the assessment and plan as written. Number of minutes spent on the visit:10 Time with Patient: Less than 30
[2022-10-22 11:22] LABS: Glucose,Whole Blood 242 mg/dL (70-110)
[2022-10-22 12:32] VITALS: BP 137/84; PULSE 75; RESP 18; TEMP 98.5
--- NOTE | 2022-10-22 12:52 | P.PN ---
Subjective Progress Note Date: 10/22/22 Hospital Course: 61-year-old female with hypertension, dyslipidemia, and nicotine dependence the who was recently hospitalized here from 10/11/22 through 10/13/22 for primary lung malignancy with metastatic disease and postobstructive pneumonia. She had follow-up with Dr. Sandoval on 10/17/22 and he directed her to come to the emergency department. On arrival her room air pulse ox is 90%, the remainder of her labs within normal limits. Initial laboratory analysis showed white blood cell count of 15.5, platelets 119, sodium 1:30, and glucose 430. Initial chest x-ray showed decreased appearance of the focal opacifications in the right upper lobe extending towards the hilum, bibasilar patchy increased airspace opacities concerning for pneumonia. In the ER she was given a dose of Levaquin. Patient had been taking Augmentin on an outpatient basis. ID, oncology, pulmonology following. Bronchoscopy/biopsy on 10/13/22 confirmed small cell carcinoma as well as multiple fungal organisms. Patient underwent 2 doses of chemotherapy inpatient. MRI brain and bone scan for staging. For postobstructive pneumonia, patient on antifungals as well as IV levofloxacin and Augmentin. Bone scan showing osseous metastatic disease. Subjective: Patient seen and examined at bedside. No acute events overnight. He claims that her cough has improved. Shortness of breath has also improved. Continues to have some epigastric lower sternal chest pain with cough. She denies any nausea, vomiting, diarrhea, constipation, abdominal pain or urinary complaints. Pertinent positives and negatives as discussed above, a complete review of systems was performed and all other systems are negative. Vitals Signs Reviewed. General: nontoxic, no distress, appears at stated age Derm: warm, dry Head: atraumatic, normocephalic, symmetric Eyes: EOMI, no lid lag, anicteric sclera Mouth: no lip lesion, mucus membranes moist Cardiovascular: S1S2 reg, no murmur Lungs: Reduced breath sounds in the right upper lobe, no accessory muscle use, supplemental oxygen Abdominal: soft, nontender to palpation, no guarding, no appreciable organomegaly Ext: no gross muscle atrophy, no edema, no contractures Neuro: CN II-XI grossly intact, no focal neuro deficits Psych: Alert, oriented, appropriate affect Assessment and Plan: Acute hypoxic respiratory failure COPD with acute exacerabtion Postobstructive pneumonia Fungal pneumonia 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 - IV antibiotics, bronchodilators - wean O2 - Pulmonology, ID following -On antifungal -Remains on dexamethasone for chemotherapy, methylprednisone discontinued - Legionella negative, histoplasmosis, Aspergillus pending - Oncology following, had 2 round of chemotherapy, 1 more rounds pending - MRI brain pending - Bone scan shows osseous metastatic disease Mild Hyponatremia, due to decreasd oral intake improving - IVF DM 2 with hyperglycemia uncontrolled - levemir changed to 25 units at night - SSI increased to medium scale - likely elevated BS in the setting of steroids - on jardiance - hold ozempic - check A1C 8.2% on 10/11/2022 Recent tobacco abuse - resume nicotine patch HTN HLD CVA/TIA Subacute left rib fractures DVT ppx: lovenox Code status: full code Anticipated discharge place: home with home care, including oxygen as well as nebulizer Anticipated discharge time: likely tomorrow Objective - Vital Signs Vital signs: Vital Signs Temp 98.5 F 10/22/22 12:21 Pulse 75 10/22/22 12:21 Resp 18 10/22/22 12:21 BP 137/84 10/22/22 12:21 Pulse Ox 97 10/22/22 12:21 FiO2 Intake & Output 10/21/22 10/22/22 10/22/22 18:59 06:59 18:59 Intake Total 240 1590 Balance 240 1590 Intake: Intake, IV Titration 1000 Amount Sodium Chloride 0.9% 1, 900 000 ml @ 75 mls/hr IV . [id number] ANTHONY Rx#:[id number] Voriconazole 200 mg In 100 Sodium Chloride 0.9% 100 ml @ 125 mls/hr IVPB Q12HR ANTHONY Rx#:[id number] Oral 240 590 Other: Voiding Method Bedside Commode Bedside Commode Bedside Commode # Voids 600 2 - Labs CBC & Chem 7: 10/21/22 07:24 10/21/22 07:24 Labs: Abnormal Lab Results - Last 24 Hours (Table) 10/21/22 10/21/22 10/22/22 Range/Units 17:18 20:14 07:07 POC Glucose (mg/dL) 323 H 331 H 278 H (70-110) mg/dL 10/22/22 Range/Units 11:21 POC Glucose (mg/dL) 242 H (70-110) mg/dL Microbiology - Last 24 Hours (Table) 10/17/22 10:37 Blood Culture - Preliminary Blood No Growth after 96 hours 10/17/22 10:20 Blood Culture - Preliminary Blood No Growth after 96 hours
--- NOTE | 2022-10-22 14:37 | P.DS ---
Providers Date of admission: 10/17/22 13:44 Expected date of discharge: 10/22/22 Attending physician: Jose L Ibarra MD Consults: 10/17/22 13:20 Consult Physician Routine Consulting Provider: Mann Sandoval Consult Reason/Comments: hypoxemia, bibasilar opacities concerning for pneumonia, newly diagnosed joon Do you want consulting provider notified?: Yes 10/17/22 14:42 Consult Physician Routine Consulting Provider: Zane Bruno Consult Reason/Comments: metastatic cancer, newly discovered Do you want consulting provider notified?: Yes 10/18/22 16:47 Consult Physician Routine Consulting Provider: Lamonte López Consult Reason/Comments: pneumonia Do you want consulting provider notified?: Yes Primary care physician: Stated None Hospital Course: Discharge Diagnosis: Acute hypoxic respiratory failure COPD with acute exacerabtion Postobstructive pneumonia Fungal pneumonia 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 She had follow-up with Dr. Sandoval on 10/17/22 and he directed her to come to the emergency department. On arrival her room air pulse ox is 90%, the remainder of her labs within normal limits. Initial laboratory analysis showed white blood cell count of 15.5, platelets 119, sodium 1:30, and glucose 430. Initial chest x-ray showed decreased appearance of the focal opacifications in the right upper lobe extending towards the hilum, bibasilar patchy increased airspace opacities concerning for pneumonia. In the ER she was given a dose of Levaquin. Patient had been taking Augmentin on an outpatient basis. ID, oncology, pulmonology following. Bronchoscopy/biopsy on 10/13/22 confirmed small cell carcinoma as well as multiple fungal organisms. Patient underwent 3 doses of chemotherapy inpatient. Bone scan showing osseous metastatic disease. MRI brain unable to perform as patient has a coil placed 10 years ago. For postobstructive pneumonia, patient was on antifungals as well as IV levofloxacin and Augmentin. Fungal serology still pending. Patient to be discharged on levofloxacin only as discussed with ID. Will follow up with regards to serology, and then consider antifungals. Patient does not qualify for home oxygen. Patient should continue nebulized bronchodialators for COPD. Patient seen and examined at bedside. Vital signs reviewed and stable. General: nontoxic, no distress, appears at stated age Derm: warm, dry Head: atraumatic, normocephalic, symmetric Eyes: EOMI, no lid lag, anicteric sclera Mouth: no lip lesion, mucus membranes moist Cardiovascular: S1S2 reg, no murmur Lungs: Reduced breath sounds in the right upper lobe, no accessory muscle use, supplemental oxygen Abdominal: soft, nontender to palpation, no guarding, no appreciable organomegaly Ext: no gross muscle atrophy, no edema, no contractures Neuro: CN II-XI grossly intact, no focal neuro deficits Psych: Alert, oriented, appropriate affect A total of 33 minutes of time were spent preparing this complex discharge summary. Patient was discharged on 10/22/22 at 14:00. Patient Condition at Discharge: Stable Plan - Discharge Summary New Discharge Prescriptions: New levoFLOXacin 750 mg PO DAILY #7 tab Ipratropium-Albuterol Nebulize [Duoneb 0.5 mg-3 mg/3 ml Soln] 3 ml INHALATION RT-QID #30 each amLODIPine [Norvasc] 5 mg PO DAILY #30 tab Continue Metoprolol Tartrate [Lopressor] 25 mg PO DAILY Atorvastatin Calcium 40 mg PO HS Semaglutide [Ozempic] 0.5 mg SQ MO Sertraline [Zoloft] 100 mg PO BID ALPRAZolam [Xanax] 0.5 mg PO TID PRN #14 tab PRN Reason: Anxiety Albuterol Inhaler [Ventolin Hfa Inhaler] 2 puff INHALATION RT-Q6H PRN #60 each PRN Reason: Shortness Of Breath Nicotine 21Mg/24Hr Patch [Habitrol] 1 patch TRANSDERM DAILY Empagliflozin [Jardiance] 10 mg PO DAILY Budesonide-Formot 160-4.5 Mcg [Symbicort 160-4.5 Mcg Inhaler] 2 puff INHALATION RT-BID Discontinued Amoxic-Pot Clav 875-125Mg [Augmentin 875-125] 1 tab PO BID 4 Days #8 tab Discharge Medication List Atorvastatin Calcium 40 mg PO HS 10/11/22 [History] Empagliflozin [Jardiance] 10 mg PO DAILY 10/11/22 [History] Metoprolol Tartrate [Lopressor] 25 mg PO DAILY 10/11/22 [History] Semaglutide [Ozempic] 0.5 mg SQ MO 10/11/22 [History] Sertraline [Zoloft] 100 mg PO BID 10/11/22 [History] ALPRAZolam [Xanax] 0.5 mg PO TID PRN #14 tab 10/13/22 [Rx] Albuterol Inhaler [Ventolin Hfa Inhaler] 2 puff INHALATION RT-Q6H PRN #60 each 10/13/22 [Rx] Budesonide-Formot 160-4.5 Mcg [Symbicort 160-4.5 Mcg Inhaler] 2 puff INHALATION RT-BID 10/17/22 [History] Nicotine 21Mg/24Hr Patch [Habitrol] 1 patch TRANSDERM DAILY 10/17/22 [History] Ipratropium-Albuterol Nebulize [Duoneb 0.5 mg-3 mg/3 ml Soln] 3 ml INHALATION RT-QID #30 each 10/22/22 [Rx] amLODIPine [Norvasc] 5 mg PO DAILY #30 tab 10/22/22 [Rx] levoFLOXacin 750 mg PO DAILY #7 tab 10/22/22 [Rx] Follow up Appointment(s)/Referral(s): Zane Bruno MD [STAFF PHYSICIAN] - 10/30/22 3:30 pm (Appt is at the office located at [address] [place] [address], office buildings behind [facility]) Mann Sandoval DO [Doctor of Osteopathic Medicine] - 11/16/22 10:15 am (This is the first available appointment.) None,Stated [Primary Care Provider] - 1-2 days Lamonte López MD [STAFF PHYSICIAN] - 1 Week Patient Instructions/Handouts: Lung Cancer (DC), Pneumonia (DC) Activity/Diet/Wound Care/Special Instructions: Please see oncology as soon as possible. You will need to follow up with ID and pulmonology to determine the course of antibiotics in the future. For now, continue oral antibiotics for 7 days. You also need to follow up with PCP for diabetes management. Discharge Disposition: HOME WITH HOME HEALTH SERVICES
[2022-10-22] MEDS: SODIUM CHLORIDE 0.9% 1,000 ML IV SCH (15:48)
--- NOTE | 2022-10-22 18:30 | P.PN ---
Subjective Progress Note Date: 10/22/22 Principal diagnosis: SCLC In f/u, Carbo BEAD PICKER cycle 1 completed, no reported side effects. Pt reports overall improvement in breathing at rest, still experiencing exertional dyspnea. She is able to ambulate with O2 and does feel better with nebulizer treatments. Pain is managed on current analgesics. No other reported complaints. Objective - Vital Signs Vital signs: Vital Signs Temp 98.5 F 10/22/22 12:21 Pulse 75 10/22/22 12:21 Resp 18 10/22/22 12:21 BP 137/84 10/22/22 12:21 Pulse Ox 97 10/22/22 12:21 FiO2 Intake & Output 10/21/22 10/22/22 10/22/22 18:59 06:59 18:59 Intake Total 240 1590 Balance 240 1590 Intake: Intake, IV Titration 1000 Amount Sodium Chloride 0.9% 1, 900 000 ml @ 75 mls/hr IV . [id number] ANTHONY Rx#:[id number] Voriconazole 200 mg In 100 Sodium Chloride 0.9% 100 ml @ 125 mls/hr IVPB Q12HR ANTHONY Rx#:[id number] Oral 240 590 Other: Voiding Method Bedside Commode Bedside Commode Bedside Commode # Voids 600 2 - Constitutional General appearance: Present: average body habitus, cooperative, no acute distress - EENT Eyes: Present: anicteric sclerae, EOMI ENT: Present: hearing grossly normal - Neck Neck: Present: normal ROM. Absent: lymphadenopathy - Respiratory Respiratory: bilateral: CTA - Cardiovascular Rhythm: regular Heart sounds: normal: S1, S2 Abnormal Heart Sounds: Absent: systolic murmur, diastolic murmur, rub, S3 Gallop, S4 Gallop, click, other - Peripheral edema leg Peripheral Edema: bilateral: None - Integumentary Integumentary: Present: normal - Neurologic Neurologic Comment(s): grossly intact Neurologic: Present: CNII-XII intact - Musculoskeletal Musculoskeletal: Present: strength equal bilaterally - Psychiatric Psychiatric: Present: A&O x's 3, appropriate affect, intact judgment & insight - Labs CBC & Chem 7: 10/21/22 07:24 10/21/22 07:24 Labs: Abnormal Lab Results - Last 24 Hours (Table) 10/21/22 10/22/22 10/22/22 Range/Units 20:14 07:07 11:21 POC Glucose (mg/dL) 331 H 278 H 242 H (70-110) mg/dL Microbiology - Last 24 Hours (Table) 10/17/22 10:20 Blood Culture - Preliminary Blood No Growth after 120 hours 10/17/22 10:37 Blood Culture - Preliminary Blood No Growth after 120 hours Assessment and Plan (1) Small cell carcinoma Status: Acute Priority: High Code(s): C80.1 - MALIGNANT (PRIMARY) NEOPLASM, UNSPECIFIED SNOMED Code(s): 75536360607911961 Plan: Small cell carcinoma: -Bronchoscopy/biopsy resulted-small cell carcinoma. Dr. Bruno reviewed diagnosis, prognosis, treatment options, life expectancy with and with out treatment with pt and last week. She started carbo/BEAD PICKER inpt due to persisten t/progressive symptoms for which she was not able to tolerate being out of the hospital for more then a few days. This completed yesterday. NO side effects to report! She feels a little better -Pt has not been able to remain out pt long enough to be seen or complete staging scans. -MRI brain has not been able to be completed due to hx of aneurysm clips. Received procedural notes from [facility], will forward documents to MRI dept to see if we can proceed with brain MRI for initial staging outpt. NM bone scan showed osseous metastatic disease. Uptake in bilateral ribs, thoracolumbar column, sternum, bilateral humeri and calvarium. -1st cycle of Carbo/BEAD PICKER completed and patient tolerated well. Reports improvement in breathing. -F/U in discharge instructions -Case management placed home O2 order -Nebs per Pulmonary *Pt is okay for discharge from Hem/Onc standpoint once cleared by IM and Specialities
[2022-10-23 13:18] LABS: Histoplasma Abs by ID Not Detected (Not Detected); Histoplasma Abs by Mycelia, CF <1:8 (<1:8)
--- NOTE | 2022-10-26 15:28 | P.PN ---
Subjective Progress Note Date: 10/22/22 Principal diagnosis: Pneumonia Patient is a 61-year female with a past medical history significant for hypertension COPD and did have a [id number] of smoking, with a recent diagnosis of right perihilar mass status post biopsy suggestive of small cell carcinoma biopsy also mentions some fungal component however no BAL for fungal culture were done on 10/15/2022, patient was in the hospital with increasing shortness of breath CT angiogram of the chest with the groundglass opacity. On today's evaluation that is 10/22/2022, the patient remain to be afebrile, the patient is a breathing comfortably on room air, patient denies having any chest pain, the patient cough has decrease in density and not bringing up any sputum, the patient denies having any nausea no vomiting no abdominal pain no diarrhea and feeling better, pt has been cleared for discharge by pulmonary Objective - Vital Signs Vital signs: Vital Signs Temp 98.4 F 10/22/22 07:09 Pulse 80 10/22/22 09:24 Resp 16 10/22/22 07:09 BP 168/80 10/22/22 07:09 Pulse Ox 97 10/22/22 09:24 FiO2 Intake & Output 10/21/22 10/22/22 10/22/22 18:59 06:59 18:59 Intake Total 240 1590 Balance 240 1590 Intake: Intake, IV Titration 1000 Amount Sodium Chloride 0.9% 1, 900 000 ml @ 75 mls/hr IV . [id number] ANTHONY Rx#:[id number] Voriconazole 200 mg In 100 Sodium Chloride 0.9% 100 ml @ 125 mls/hr IVPB Q12HR ANTHONY Rx#:[id number] Oral 240 590 Other: Voiding Method Bedside Commode Bedside Commode # Voids 600 2 - Exam GENERAL DESCRIPTION: Middle-aged female lying in bed in no distress RESPIRATORY SYSTEM: Unlabored breathing , decreased breath sounds at bases HEART: S1 S2 regular rate and rhythm , ABDOMEN: Soft , no tenderness EXTREMITIES: No edema feet - Labs CBC & Chem 7: 10/21/22 07:24 10/21/22 07:24 Labs: Abnormal Lab Results - Last 24 Hours (Table) 10/21/22 10/21/22 10/21/22 Range/Units 11:07 17:18 20:14 POC Glucose (mg/dL) 191 H 323 H 331 H (70-110) mg/dL 10/22/22 Range/Units 07:07 POC Glucose (mg/dL) 278 H (70-110) mg/dL Microbiology - Last 24 Hours (Table) 10/17/22 10:37 Blood Culture - Preliminary Blood No Growth after 96 hours 10/17/22 10:20 Blood Culture - Preliminary Blood No Growth after 96 hours Assessment and Plan (1) Pneumonia Status: Acute Code(s): J18.9 - PNEUMONIA, UNSPECIFIED ORGANISM SNOMED Code(s): 472211610 Plan: 1patient with a recent diagnosis of small cell cancer and concerning for postobstructive pneumonia now presenting to the hospital with increasing shor tness of breath CT angiogram of the chest did shows groundglass opacities concerning for possible atypical pneumonia however the patient is currently not running any fever White count is elevated however the patient has been on steroids and procalcitonin is only 0.18 with a question of possible lymphangitic spread of her malignancy rather than atypical pneumonia. There was also mention of fungal component on the CT report unfortunately no BAL or fungal culture were done on bronchoscopy specimen, with a possible fungal colonization of the tumor cavity 2-patient has shown clinical improvement, the patient fungal serology is still pending 3- patient has shown clinical improvement with chemo more likely pointing to a symptomatology related to underlying lung cancer other than pneumonia may c onsider a short course of oral Levaquin on discharge and close outpatient follow-up this was discussed with the admitting team Time with Patient: Less than 30
== END 2022-10-22 16:45 | disposition home health service (06) | DRG 193 ==
LOC: EC 09:10 → 5NMEDONC 13:44
PROVIDERS: ADMIT Internal Medicine; ATTEND Internal Medicine
PROC: 02HV33Z Insertion of Infusion Device into Superior Vena Cava, Percutaneous Approach (ICD-10-PCS; principal; 2022-10-19 08:30)
PROC: 3E0 Administration, Physiological Systems and Anatomical Regions, Introduction (ICD-10-PCS; 2022-10-22)
DX: J16.8 Pneumonia due to other specified infectious organisms (principal); J96.01 Acute respiratory failure with hypoxia; S22.42XA Multiple fractures of ribs, left side, initial encounter for closed fracture; C34.11 Malignant neoplasm of upper lobe, right bronchus or lung; C79.51 Secondary malignant neoplasm of bone; B49 Unspecified mycosis; D84.9 Immunodeficiency, unspecified; E87.1 Hypo-osmolality and hyponatremia; J44.0 Chronic obstructive pulmonary disease with (acute) lower respiratory infection; J44.1 Chronic obstructive pulmonary disease with (acute) exacerbation; I10 Essential (primary) hypertension; E78.5 Hyperlipidemia, unspecified; E86.0 Dehydration; F17.211 Nicotine dependence, cigarettes, in remission; F32.A Depression, unspecified; K76.9 Liver disease, unspecified; Z20.822 Contact with and (suspected) exposure to COVID-19; Z79.4 Long term (current) use of insulin; Z79.51 Long term (current) use of inhaled steroids; Z79.84 Long term (current) use of oral hypoglycemic drugs; Z79.899 Other long term (current) drug therapy; Z85.118 Personal history of other malignant neoplasm of bronchus and lung; Z86.73 Personal history of transient ischemic attack (TIA), and cerebral infarction without residual deficits; Z90.710 Acquired absence of both cervix and uterus; Z88.5 Allergy status to narcotic agent; Z91.013 Allergy to seafood; Z90.49 Acquired absence of other specified parts of digestive tract; R59.0 Localized enlarged lymph nodes
CPT/HCPCS: 36415; 36573; 71046; 71275; 78306; 80048; 80053; 83036; 83605; 83735; 84100; 84145; 84484; 85025; 85027; 85379; 85610; 85730; 86606; 86698; 87040; 87305; 87449; 87636; 93005; 93306; 94640; 94760; 96361; 96365; 96375; 99285

== ENCOUNTER → 2022-10-24 | Outpatient (CLI) | payer MEDICARE ==
--- NOTE | 2022-10-24 20:59 | MR ---
EXAMINATION TYPE: MR brain wo/w con DATE OF EXAM: 10/24/2022 COMPARISON: Prior bone scan October 19, 2022. CT brain December 27, 2012 HISTORY: Metastatic lung cancer. TECHNIQUE: Multiplanar, multisequence images of the brain and brainstem is performed without and with IV contras t, utilizing 7.5 mL intravenous Gadavist . FINDINGS: Diffusion weighted images demonstrate no evidence of a recent infarct or other diffusion ab normality. There is mild ventricular and sulcal prominence. Scattered foci of T2 hyperintensity are seen throughout the white matter bilaterally. Lesions are nonspecific in appearance and distribution with greater left-sided involvement. Old lacunar infarct superior left frontal lobe axial image 38 is noted. Midline structures demonstrate normal morphology. The craniocervical junction appears within normal limits. Post contrast images demonstrate no abnormal enhancing intraparenchymal masses. The dural ve nous sinuses appear patent. The visualized sinuses are clear and the globes are intact. There are num erable enhancing focal osseous lesions consistent with osseous metastatic disease, findings confirmed on recent bone scan IMPRESSION: 1. Osseous metastatic disease to the calvarium is confirmed. No intraparenchymal enhancing lesions or metastatic disease identified. 2. Background mild diffuse atrophy and mild to moderate chronic small vessel ischemic changes are pre sent.
== END | disposition home or self-care (01) ==
LOC: RADMRIMAIN 19:18
PROVIDERS: ATTEND Internal Medicine Hematology & Oncology
DX: C79.51 Secondary malignant neoplasm of bone (principal); C34.90 Malignant neoplasm of unspecified part of unspecified bronchus or lung; I67.82 Cerebral ischemia; G31.9 Degenerative disease of nervous system, unspecified
CPT/HCPCS: 70553; A9585